=== PATIENT | female | born 1990 | race Caucasian/White ===

== ENCOUNTER 2018-01-05 13:28 | Emergency (ER) | payer OTHER ==
[2018-01-05 15:57] LABS: Urine Blood NEGATIVE (NEG); Urine Glucose NEGATIVE (NEG); Urine Protein TRACE (NEG)
--- NOTE | 2018-01-05 17:33 | ER ---
Nurse's Notes [facility] Name: Zakiya Angeles Age: 27 yrs Sex: Female : 1990 Arrival Date: 01/05/2018 Time: 13:31 Bed 11 Private MD: J Luis Peralta Diagnosis: Abdominal and pelvic pain;Pelvic and perineal pain Presentation: 01/05 13:45 Presenting complaint: Patient states: "I've been having pelvic pain, I thought it was a aj1 UTI for the past 2 weeks. I went to urgent care and they told me to come here." Denies vaginal bleeding or discharge. Reports dysuria. Patient states that she had a miscarriage 3 weeks ago, her follow up with her OB is scheduled for January 17. Denies fever, nausea, vomiting, diarrhea. Transition of care: patient was not received from another setting of care. Onset of symptoms was December 22, 2017. Risk Assessment: Do you want to hurt yourself or someone else? Patient reports no desire to harm self or others. Initial Sepsis Screen: Does the patient meet any 2 criteria? No. Patient's initial sepsis screen is negative. Does the patient have a suspected source of infection? No. Patient's initial sepsis screen is negative. Care prior to arrival: None. 13:45 Method Of Arrival: Ambulatory aj 13:45 Acuity: DENICE 4 aj1 Triage Assessment: 13:48 General: Appears in no apparent distress. comfortable, Behavior is calm, cooperative, aj1 appropriate for age. Pain: Complains of pain in pelvis Pain currently is 2 out of 10 on a pain scale. Neuro: Level of Consciousness is awake, alert, obeys commands. Cardiovascular: Patient's skin is warm and dry. Respiratory: Airway is patent Respiratory effort is even, unlabored, Respiratory pattern is regular, symmetrical. GI: Patient currently denies diarrhea, nausea, vomiting. : Reports burning with urination, Denies discharge, vaginal bleeding. Derm: Skin is pink, warm \\T\\ dry. normal. 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 - Social history:: Smoking status: Patient uses tobacco products, smokes one pack cigarettes per day. - Ebola Screening: : Patient denies travel to an Ebola-affected area in the 21 days before illness onset. Screenin:40 Abuse screen: Denies threats or abuse. Denies injuries from another. Nutritional iw screening: No deficits noted. Tuberculosis screening: No symptoms or risk factors identified. Fall Risk None identified. Assessment: 16:00 General: Appears in no apparent distress. comfortable, Behavior is calm, cooperative. iw Neuro: Level of Consciousness is awake, alert, obeys commands, Oriented to person, place, time, situation, Moves all extremities. Full function. Respiratory: Respiratory effort is even, unlabored. Derm: Skin is pink, warm \\T\\ dry. normal. Musculoskeletal: Range of motion: intact in all extremities. 17:25 Reassessment: pt states she wants to be discharged and will follow up with medical iw records on Tuesday to get results. Vital Signs: 13:48 BP 125 / 91; Pulse 91; Resp 18; Temp 98.2(TE); Pulse Ox 99% on R/A; Weight 70.76 kg; aj1 Height 5 ft. 6 in. (167.64 cm); Pain 2/10; 13:48 Body Mass Index 25.18 (70.76 kg, 167.64 cm) aj1 ED Course: 13:31 Patient arrived in ED. mr 13:31 J Luis Peralta MD is Private Physician. mr 13:48 Triage completed. aj1 13:48 Arm band placed on Patient placed in waiting room, Patient notified of wait time. aj1 13:50 Patient has correct armband on for positive identification. iw 14:14 Gretchen Magaña, RN is Primary Nurse. iw 14:26 Lenny Gottlieb MD is Attending Physician. kdr 16:40 Assist provider with pelvic exam: Set up pelvic tray. Performed by Sondra Tucker iw ADRIEL-C Specimens sent to lab. Patient tolerated well. Patient did not have IV access during this emergency room visit. 17:32 J Luis Peralta MD is Referral Physician. kdr Administered Medications: No medications were administered Outcome: 17:33 Discharge ordered by . kdr 17:41 Discharged to home ambulatory, with family. iw 17:41 Condition: good 17:41 Discharge instructions given to patient, Instructed on discharge instructions, follow up and referral plans. 17:41 Patient left the ED. iw Signatures: Audrey Brownlee RN RN aj1 Lenny Gottlieb MD MD kdr Rivera, Maria mr Gretchen Magaña RN RN iw
--- NOTE | 2018-01-05 17:33 | EDPHYS ---
Physician Documentation [facility] Name: Zakiya Angeles Age: 27 yrs Sex: Female : 1990 Arrival Date: 01/05/2018 Time: 13:31 Bed 11 Private MD: J Luis Peralta ED Physician Lenny Gottlieb HPI: 01/06 09:14 This 27 yrs old Female presents to ER via Ambulatory with complaints of kdr Pelvic Pain. 09:14 The patient presents with urinary symptoms, Vaginal pain but no dyspareunia . Onset: kdr The symptoms/episode began/occurred gradually, 2 week(s) ago. Modifying factors: The symptoms are alleviated by nothing, the symptoms are aggravated by nothing. Associated signs and symptoms: Pertinent positives:. Severity of symptoms: At their worst the symptoms were mild, in the emergency department the symptoms are unchanged. The patient is sexually active. The patient has not experienced similar symptoms in the past. The patient has not recently seen a physician. 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 - Social history:: Smoking status: Patient uses tobacco products, smokes one pack cigarettes per day. - Ebola Screening: : Patient denies travel to an Ebola-affected area in the 21 days before illness onset. ROS: 01/06 09:14 Constitutional: Negative for fever, chills, and weight loss, Eyes: Negative for injury, kdr pain, redness, and discharge, Neck: Negative for injury, pain, and swelling, Cardiovascular: Negative for chest pain, palpitations, and edema, Respiratory: Negative for shortness of breath, cough, wheezing, and pleuritic chest pain, Abdomen/GI: Negative for abdominal pain, nausea, vomiting, diarrhea, and constipation, Back: Negative for injury and pain, MS/Extremity: Negative for injury and deformity, Skin: Negative for injury, rash, and discoloration, Neuro: Negative for headache, weakness, numbness, tingling, and seizure activity. Psych: Negative for depression, anxiety, suicide ideation, homicidal ideation, and hallucinations, Allergy/Immunology: Negative for hives, rash, and allergies, Endocrine: Negative for neck swelling, polydipsia, polyuria, polyphagia, and marked weight changes, Hematologic/Lymphatic: Negative for swollen nodes, abnormal bleeding, and unusual bruising. : Positive for Vaginal pain. Exam: 09:14 Constitutional: This is a well developed, well nourished patient who is awake, alert, kdr and in no acute distress. Head/Face: Normocephalic, atraumatic. Eyes: Pupils equal round and reactive to light, extra-ocular motions intact. Lids and lashes normal. Conjunctiva and sclera are non-icteric and not injected. Cornea within normal limits. Periorbital areas with no swelling, redness, or edema. Neck: Trachea midline, no thyromegaly or masses palpated, and no cervical lymphadenopathy. Supple, full range of motion without nuchal rigidity, or vertebral point tenderness. No Meningismus. Chest/axilla: Normal chest wall appearance and motion. Nontender with no deformity. No lesions are appreciated. Cardiovascular: Regular rate and rhythm with a normal S1 and S2. No gallops, murmurs, or rubs. Normal PMI, no JVD. No pulse deficits. Respiratory: Lungs have equal breath sounds bilaterally, clear to auscultation and percussion. No rales, rhonchi or wheezes noted. No increased work of breathing, no retractions or nasal flaring. Abdomen/GI: Soft, non-tender, with normal bowel sounds. No distension or tympany. No guarding or rebound. No evidence of tenderness throughout. Back: No spinal tenderness. No costovertebral tenderness. Full range of motion. Skin: Warm, dry with normal turgor. Normal color with no rashes, no lesions, and no evidence of cellulitis. MS/ Extremity: Pulses equal, no cyanosis. Neurovascular intact. Full, normal range of motion. Neuro: Awake and alert, GCS 15, oriented to person, place, time, and situation. Cranial nerves II-XII grossly intact. Motor strength 5/5 in all extremities. Sensory grossly intact. Cerebellar exam normal. Normal gait. Psych: Awake, alert, with orientation to person, place and time. Behavior, mood, and affect are within normal limits. Vital Signs: 01/05 13:48 BP 125 / 91; Pulse 91; Resp 18; Temp 98.2(TE); Pulse Ox 99% on R/A; Weight 70.76 kg; aj1 Height 5 ft. 6 in. (167.64 cm); Pain 2/10; 13:48 Body Mass Index 25.18 (70.76 kg, 167.64 cm) aj1 MDM: 17:33 Patient medically screened. kdr 01/06 09:14 Data reviewed: vital signs, nurses notes, lab test result(s). Counseling: I had a kdr detailed discussion with the patient and/or guardian regarding: the historical points, exam findings, and any diagnostic results supporting the discharge/admit diagnosis, lab results, the need for outpatient follow up. 01/05 15:42 Order name: Urine Dipstick--Ancillary (enter results) ag 01/05 15:42 Order name: Urine --Ancillary (enter results) ag 01/05 14:55 Order name: Urine Dipstick-Ancillary (obtain specimen); Complete Time: 15:31 kdr 01/05 14:55 Order name: Urine Test (obtain specimen); Complete Time: 16:27 kdr 01/05 17:11 Order name: Wet Prep iw 01/05 14:55 Order name: Pelvic Exam Setup; Complete Time: 16:51 kdr Administered Medications: No medications were administered Disposition: 01/05/18 17:33 Discharged to Home. Impression: Abdominal and pelvic pain, Pelvic and perineal pain. - Condition is Fair. - Discharge Instructions: Pelvic Pain, Female. - Medication Reconciliation Form, Thank You Letter, Work release form form. - Follow up: J Luis Peralta MD; When: 2 - 3 days; Reason: If symptoms return, Further diagnostic work-up, Recheck today's complaints, Continuance of care, Re-evaluation by your physician. - Problem is an ongoing problem. - Symptoms are unchanged. Signatures: Dispatcher [employer] EDAudrey Myles RN RN aj1 Lenny Gottlieb MD MD kdr Gretchen Magaña RN RN iw Corrections: (The following items were deleted from the chart) 01/05 17:41 17:33 01/05/2018 17:33 Discharged to Home. Impression: Abdominal and pelvic pain; iw Pelvic and perineal pain. Condition is Fair. Forms are Medication Reconciliation Form, Thank You Letter, Antibiotic Education, Prescription Opioid Use. Follow up: J Luis Peralta; When: 2 - 3 days; Reason: If symptoms return, Further diagnostic work-up, Recheck today's complaints, Continuance of care, Re-evaluation by your physician. Problem is an ongoing problem. Symptoms are unchanged. kdr
== END 2018-01-05 17:41 | disposition home or self-care (01) ==
LOC: ER 13:28
DX: R10.2 Pelvic and perineal pain (principal); R10.9 Unspecified abdominal pain; F17.210 Nicotine dependence, cigarettes, uncomplicated
CPT/HCPCS: 81003; 81025; 87210; 99283

== ENCOUNTER 2021-04-29 19:36 | Emergency (ER) | payer OTHER ==
[2021-04-29] MEDS ORDERED: ONDANSETRON 4 MG/2 ML VIAL ONE (19:53)
[2021-04-29 20:53] LABS: Basophils % 0.3 % (0-1.3); Hematocrit 43.3 % (36.0-45.0); Lymphocytes % 9.7 % (15.3-44.8); MPV 8.6 fL (7.6-11.3); RBC Red Blood Cell Count 4.93 M/uL (3.86-4.86)
[2021-04-29 21:25] LABS: Urine Blood Negative (Negative); Urine Glucose Negative (Negative); Urine Protein Trace (Negative); Urine Specific Gravity 1.025 (1.005-1.030)
[2021-04-29 21:27] LABS: ALT/SGPT 27 U/L (12-78); AST/SGOT 19 U/L (15-37); Albumin 4.1 g/dL (3.4-5.0); Alkaline Phosphatase 86 U/L (45-117); BUN Blood Urea Nitrogen 19 mg/dL (7-18); Bicarbonate 23 mmol/L (21-32); Bilirubin Direct 0.1 mg/dL (0-0.2); Bilirubin Total 0.5 mg/dL (0.2-1.0); Glucose Level 102 mg/dL (74-106); Lipase 68 U/L (73-393); Potassium 3.9 mmol/L (3.5-5.1); Protein, Total 7.7 g/dL (6.4-8.2); Sodium Level 143 mmol/L (136-145)
[2021-04-29] MEDS ORDERED: NA CHLORIDE 0.9% 1,000 ML ONE (21:37)
--- NOTE | 2021-04-29 22:13 | ER ---
Nurse's Notes [facility] Name: Zakiya Angeles Age: 30 yrs Sex: Female : 1990 Arrival Date: 04/29/2021 Time: 19:37 Bed 8 Private MD: Diagnosis: Nausea with vomiting, unspecified;Diarrhea, unspecified Presentation: 04/29 19:48 Chief complaint: Patient states: vomiting and diarrhea x 2 hours. Coronavirus screen: df1 Vaccine status: Patient reports being unvaccinated. Client denies travel out of the [place] in the last 14 days. Client presents with at least one sign or symptom that may indicate coronavirus-19. Ebola Screen: Patient negative for fever greater than or equal to 101.5 degrees Fahrenheit, and additional compatible Ebola Virus Disease symptoms Patient denies exposure to infectious person. Patient denies travel to an Ebola-affected area in the 21 days before illness onset. Initial Sepsis Screen: Does the patient meet any 2 criteria? No. Patient's initial sepsis screen is negative. Does the patient have a suspected source of infection? No. Patient's initial sepsis screen is negative. Risk Assessment: Do you want to hurt yourself or someone else? Patient reports no desire to harm self or others. Onset of symptoms was April 29, 2021 at 17:00. 19:48 Method Of Arrival: EMS: [facility] df1 19:48 Acuity: DENICE 3 df1 19:53 Note Pt arrived via squad from home c/o vomiting/diarrhea x 2 hours. Pt kids had same df1 symptoms a few days prior. Pt received 400ml NS and 4 mg zofran in route. Pt states generalized abd pain. 22:22 Note Pt tolerating oral fluids. pt denies pain/N/V. Pt to be discharged after NS bolus. df1 Triage Assessment: 19:56 General: Appears uncomfortable, Behavior is calm, cooperative. Pain: Complains of pain df1 in abdomen Pain currently is 10 out of 10 on a pain scale. Quality of pain is described as burning. 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 - Social history:: Smoking status: Patient denies any tobacco usage or history of. Screenin:56 Abuse screen: Denies threats or abuse. Nutritional screening: No deficits noted. df1 Tuberculosis screening: No symptoms or risk factors identified. Fall Risk None identified. Assessment: 20:00 GI: Reports nausea. df1 21:53 General: Appears in no apparent distress. Behavior is calm, cooperative. Neuro: No df1 deficits noted. Cardiovascular: No deficits noted. Respiratory: No deficits noted. GI: Abdomen is flat, Bowel sounds present X 4 quads. Abd is soft and non tender X 4 quads. Reports nausea. : No deficits noted. EENT: No deficits noted. Derm: No deficits noted. Musculoskeletal: No deficits noted. Vital Signs: 19:48 BP 95 / 67; Pulse 72; Resp 18; Temp 97.9; Pulse Ox 100% on R/A; Weight 88.45 kg; Height df1 5 ft. 6 in. (167.64 cm); Pain 10/10; 20:24 BP 98 / 70; Pulse 73; Resp 18; Pulse Ox 94% on R/A; df1 21:44 BP 99 / 70; Pulse 90; Resp 18; Pulse Ox 99% on R/A; df1 22:46 BP 101 / 69; Pulse 86; Resp 18; Pulse Ox 100% on R/A; df1 19:48 Body Mass Index 31.47 (88.45 kg, 167.64 cm) df1 ED Course: 19:37 Patient arrived in ED. dh4 19:39 Olesya Dhillon FNP-C [facility]. kb 19:39 Star Spann MD is Attending Physician. kb 19:47 Gisele Saleem is Primary Nurse. df1 19:51 Triage completed. df1 19:55 Maintain EMS IV. Gauge \T\ site: 20 G. IV is intact, Flushed right antecubital Converted df1 IV to saline lock on right antecubital area. 19:56 No provider procedures requiring assistance completed. df1 19:56 Patient has correct armband on for positive identification. Placed in gown. Bed in low df1 position. Call light in reach. Side rails up X 1. 20:06 Missed attempt(s): 24 gauge in left hand. Bleeding controlled, band aid applied, ds4 catheter tip intact. 20:45 Basic Metabolic Panel Sent. df1 20:45 CBC with Diff Sent. df1 20:45 Hepatic Function Sent. df1 20:45 Lipase Sent. df1 22:47 IV discontinued, intact, bleeding controlled, No redness/swelling at site. Pressure df1 dressing applied. 22:47 Arm band placed on right wrist. df1 Administered Medications: 20:00 Drug: Zofran (Ondansetron) 4 mg Route: IVP; Site: right antecubital; df1 21:44 Drug: NS 0.9% 1000 ml Route: IV; Rate: 1000 ml; Site: right antecubital; df1 22:25 Drug: Phenergan (promethazine) 25 mg Route: PO; df1 Outcome: 22:13 Discharge ordered by . kb 22:46 Discharged to home ambulatory. df1 22:46 Condition: stable 22:46 Discharge instructions given to patient, Instructed on discharge instructions, follow up and referral plans. medication usage, Demonstrated understanding of instructions, follow-up care, medications, Prescriptions given X 1. 22:47 Patient left the ED. df1 Signatures: Olesya Dhillon, ASSEMBLER UNIT-C ASSEMBLER UNIT-CkJosé Miguel Bae ds4 Scooter Klein dh4 Gisele Saleem df1
--- NOTE | 2021-04-29 22:14 | EDPHYS ---
Physician Documentation [facility] Name: Zakiya Angeles Age: 30 yrs Sex: Female : 1990 Arrival Date: 04/29/2021 Time: 19:37 Bed 8 Private MD: ED Physician Star Spann HPI: 04/29 21:26 This 30 yrs old Female presents to ER via EMS with complaints of n/v/d. kb 21:26 The patient presents to the emergency department with nausea, vomiting, diarrhea. kb Onset: The symptoms/episode began/occurred 2 hour(s) ago. Possible causes: sick contacts. The symptoms are aggravated by nothing. The symptoms are alleviated by nothing. Associated signs and symptoms: Pertinent positives: diarrhea, nausea, vomiting, Pertinent negatives: abdominal pain, fever. Severity of symptoms: At their worst the symptoms were moderate in the emergency department the symptoms are unchanged. The patient has not experienced similar symptoms in the past. The patient has not recently seen a physician. Pt reports her kids have had diarrhea for a few days. 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 - Social history:: Smoking status: Patient denies any tobacco usage or history of. ROS: 21:26 Constitutional: Negative for fever, chills, and weight loss. kb 21:26 Abdomen/GI: Positive for nausea, vomiting, and diarrhea, Negative for abdominal pain. 21:26 All other systems are negative. Exam: 21:26 Constitutional: This is a well developed, well nourished patient who is awake, alert, kb and in no acute distress. Head/Face: Normocephalic, atraumatic. ENT: Moist Mucous membranes Cardiovascular: Regular rate and rhythm with a normal S1 and S2. No gallops, murmurs, or rubs. No pulse deficits. Respiratory: Respirations even and unlabored. No increased work of breathing, no retractions or nasal flaring. Abdomen/GI: Soft, non-tender. No distention Skin: Warm, dry with normal turgor. Normal color. MS/ Extremity: Pulses equal, no cyanosis. Neurovascular intact. Full, normal range of motion. Neuro: Awake and alert, GCS 15, oriented to person, place, time, and situation. Moves all extremities. Normal gait. Psych: Awake, alert, with orientation to person, place and time. Behavior, mood, and affect are within normal limits. Vital Signs: 19:48 BP 95 / 67; Pulse 72; Resp 18; Temp 97.9; Pulse Ox 100% on R/A; Weight 88.45 kg; Height df1 5 ft. 6 in. (167.64 cm); Pain 10/10; 20:24 BP 98 / 70; Pulse 73; Resp 18; Pulse Ox 94% on R/A; df1 21:44 BP 99 / 70; Pulse 90; Resp 18; Pulse Ox 99% on R/A; df1 22:46 BP 101 / 69; Pulse 86; Resp 18; Pulse Ox 100% on R/A; df1 19:48 Body Mass Index 31.47 (88.45 kg, 167.64 cm) df1 MDM: 19:39 Patient medically screened. kb 21:26 Data reviewed: vital signs, nurses notes. Data interpreted: Pulse oximetry: on room air kb is 94 %. Interpretation: acceptable. 22:10 Counseling: I had a detailed discussion with the patient and/or guardian regarding: the kb historical points, exam findings, and any diagnostic results supporting the discharge/admit diagnosis, lab results, the need for outpatient follow up, a family practitioner, to return to the emergency department if symptoms worsen or persist or if there are any questions or concerns that arise at home. 04/29 19:39 Order name: Basic Metabolic Panel; Complete Time: 21:28 kb 04/29 19:39 Order name: CBC with Diff; Complete Time: 21:02 kb 04/29 19:39 Order name: Hepatic Function; Complete Time: 21:28 kb 04/29 19:39 Order name: Lipase; Complete Time: 21:28 kb 04/29 21:24 Order name: Urine Dipstick-Ancillary; Complete Time: 21:28 EDMS 04/29 19:39 Order name: IV Saline Lock; Complete Time: 19:45 kb 04/29 19:39 Order name: Labs collected and sent; Complete Time: 20:45 kb 04/29 21:20 Order name: Urine Dipstick-Ancillary (obtain specimen); Complete Time: 21:23 df1 04/29 21:28 Order name: PO challenge; Complete Time: 21:44 kb Administered Medications: 20:00 Drug: Zofran (Ondansetron) 4 mg Route: IVP; Site: right antecubital; df1 21:44 Drug: NS 0.9% 1000 ml Route: IV; Rate: 1000 ml; Site: right antecubital; df1 22:25 Drug: Phenergan (promethazine) 25 mg Route: PO; df1 Disposition: 04/30 00:27 Co-signature as Attending Physician, Star Spann MD. pkl Disposition Summary: 04/29/21 22:13 Discharge Ordered Location: Home kb Condition: Stable kb Diagnosis - Nausea with vomiting, unspecified kb - Diarrhea, unspecified kb Followup: kb - With: Emergency Department - When: As needed - Reason: Worsening of condition Followup: kb - With: Private Physician - When: 2 - 3 days - Reason: Recheck today's complaints, Continuance of care, Re-evaluation by your physician Discharge Instructions: - Discharge Summary Sheet kb - Food Choices to Help Relieve Diarrhea, Adult kb - Viral Gastroenteritis, Adult, [id number] kb Forms: - Medication Reconciliation Form kb - Thank You Letter kb - Antibiotic Education kb - Prescription Opioid Use kb Prescriptions: - Zofran 4 mg Oral Tablet - take 1 tablet by ORAL route every 6 hours As needed; 20 tablet; Refills: 0, kb Product Selection Permitted Signatures: Dispatcher [employer] EDSD Olesya Dhillon, Star Greer MD MD pkl Gisele Saleem df1
[2021-04-29] MEDS ORDERED: PROMETHAZINE 25 MG TABLET ONE (22:24)
[2021-04-29 22:53] VITALS: TEMP 97.9
[2021-04-29 22:57] VITALS: BP 101/69; O2SAT 100
--- OUTSIDE RECORDS SUMMARY | 2021-05-09 10:22 | XMS REPORT | Continuity of Care Document ---
:1990 Author Organization [facility] t Address [address] [place] [address] Care Team Providers Name Role Phone DadaRell Primary Care Physician Yoli SNOWDEN Attending Clinician Unavailable Yoli SNOWDEN Attending Clinician Unavailable ОЛЕГ Attending Clinician Unavailable Trent MOREL Attending Clinician Олег MESA Attending Clinician Clay BRANCH, T Attending Clinician Unavailable TRENT Attending Clinician Unavailable Yoli Snowden MD Attending Clinician MYRIAM MOON Attending Clinician Unavailable Myriam Moon MD Attending Clinician Doctor Unassigned, Name Attending Clinician Unavailable Janki KC Attending Clinician JANKI Attending Clinician Unavailable Isra MESA L Attending Clinician John GLASGOW Attending Clinician Ashley Oviedo MD Attending Clinician 2, Lab Attending Clinician Unavailable Ultrasound Attending Clinician Unavailable Remi Jeffers MD Attending Clinician Avtar Castano DO Attending Clinician Ultrasound, Mfm Attending Clinician Unavailable Rob RN Attending Clinician Unavailable UNKNOWN Attending Clinician Unavailable Bakari BRANCH Attending Clinician Unavailable Robert MESA, F Attending Clinician Ricardo CARMONA Attending Clinician Unavailable Ruby VIRK Attending Clinician Unavailable Hyun WHCNP, C Attending Clinician Kristine SENIOR ACCOUNTING ASSOCIATE, R Attending Clinician Nurse, Women's Health Attending Clinician Unavailable 1, Lab Attending Clinician Unavailable MYRIAM MOON Admitting Clinician Unavailable Myriam Moon MD Admitting Clinician Payers Payer Name Policy Type Policy Number Effective Date Expiration Date S [place] [facility] [id number] 2020 HEALTH 00:00:00 [place]ID OF [place] [id number] 2020 00:00:00 HTW-RMCHP [id number] 2019 00:00:00 Problems Condition Condition Condition Status Onset Resolution Last Treating Co mments Source Name Details Category Date Date Treatment Clinician Date Abscess of Abscess of Disease Active 2020-0 U nivers breast, breast, 6-21 [place] 00 [facility] History of History of Disease Active 2020-0 U nivers anxiety anxiety 6-02 ity of 00:00: [place] [facility] Depression Depression Disease Active 2020-0 U nivers during during 4-08 [place] in third in third 00 Medica l trimester trimester Bran ch High-risk High-risk Disease Active 2019- Uni vers 0-15 ity of in first in first 00:00: [place] trimester trimester 00 [facility] Branch History of History of Disease Active 2019- U nivers pre-eclamp pre-eclamp 0-15 it y of felipe felipe 00:00: [place] [facility] Other Other Disease Active 2020-0 Univers depression depression 6-23 it y of 00:00: [place] [facility] Other Other Disease Active 2020-0 Univers general general 6-23 it[place] of counseling counseling [place] and advice and advice 00 [place] dical for [facility] Branch contracept contracept alfredo alfredo management management History of History of Disease Active 2020-0 U nivers depression depression 6-23 it y of 00:00: [place] [facility] Disease Active 2020-0 Univers control control 1-07 it[place] of counseling counseling [place]: [place] Liveborn Liveborn Disease Active 2018-06 Unive rs , of infant, of 2-03 it y of zuniga zuniga 00:[place] , , 00 Me dical born in [facility] by vaginal by vaginal delivery delivery 39 weeks 39 weeks Disease Active 2018-06 Unive rs gestation gestation 2-02 ity of of of 00:00: [place] 00 [facility] Branch Obesity Obesity Disease Active Univers (BMI (BMI 8-27 ity of 30-39.9) 30-39.9) 00:00: [place] 00 [facility] Rubella Rubella Disease Active Univers non-immune non-immune 4-09 it y of status, status, 00:00: [place] antepartum antepartum 00 Me dical Branch History of History of Disease Active U nivers miscarriag miscarriag 4-08 it y of e, e, 00:00: [place] currently currently 00 [facility] Branch High risk High risk Disease Active Uni vers , , 4-08 it y of antepartum antepartum 00:00: [place] 00 [place] BMI BMI Disease Active Univers 26.0-26.9, 26.0-26.9, 4-08 it y of adult adult 00:00: [place] [facility] Papanicola Papanicola Disease Active U nivers ou smear ou smear 6-08 ity of of cervix of cervix 00:00: [place] with high with 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 [facility] 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) Allergies, Adverse Reactions, Alerts Allergy Allergy Status Severity Reaction(s) Onset Inactive Treating Comm ents Source Name Type Date Date Clinician NO KNOWN Drug Active Univers ALLERGIE Class ity of S [facility] Social History Social Habit Start Date Stop Date Quantity Comments Source ASSERTION 2020-03-09 University of 00:00:00 [facility] Exposure to Not sure University of SARS-CoV-2 [facility] (event) Branch Tobacco use and 2021-03-02 2021-03-02 Never used Universit y of exposure 00:00:00 00:00:00 [facility] Alcohol intake 2021-03-02 2021-03-02 Ex-drinker University of 00:00:00 00:00:00 (finding) [facility] Tobacco Comment 2018-11-06 2018-11-06 Patient quit Univers ity of 00:00:00 00:00:00 10/29/18 [facility] History of 2012-10-02 2018-10-29 Smoker University of tobacco use 00:00:00 00:00:00 [facility] Sex [birth year] At [birth year] Universit y of 00:00:00 00:00:00 [facility] Smoking Status Start Date Stop Date Source Former smoker 2021-03-02 00:00:00 2021-03-02 00:00:00 [facility] Medications Ordered Filled Start Stop Current Ordering Indication Dosage Frequency Signature Comments Components Source Medication Medication Date Date Medication? Clinician (SIG) Name Name bromphenira Yes [id number] 5mL Take 5 mL Univers mine-pseudo 9-20 by mouth 4 it y of ephedrine-D 00:00: (four[place] M (BROMFED 00 times Medical DM) 2-30-10 daily as Bran ch mg/5 mL needed for syrup Congestion /Allergies or Cough. azelastine Yes [id number] 1{spray Use 1 Univers 137 mcg 03-02 } [place] in ity of (0.1 %) 00:00: each [place] nasal spray 00 nostril 2 Med ical (two) Branch times daily. Use in each nostril as directed bromphenira Yes [id number] 5mL Take 5 mL Univers mine-pseudo 9-06 by mouth 4 it y of ephedrine-D 00:00: (four) [place] M (BROMFED 00 times Medical DM) 2-30-10 daily as Bran ch mg/5 mL needed for syrup Congestion /Allergies . codeine-gua Yes 5mL Take 5 mL U nivers ifenesin 9-06 by mouth ity of 10-100 mg/5 00:00: every 6 [place] mL solution 00 (six) Medical hours as Branch needed for Cough. Indication s: cough codeine-gua 0 Yes 5mL Take 5 mL U nivers ifenesin 9-06 by mouth ity of 10-100 mg/5 00:00: every 6 [place] mL solution 00 (six) Medical hours as Branch needed for Cough. Indication s: cough bromphenira 202-0 Yes [id number] 5mL Take 5 mL Univers mine-pseudo 9-06 by mouth 4 it y of ephedrine-D 00:00: (four) [place] M (BROMFED 00 times Medical DM) 2-30-10 daily as Bran ch mg/5 mL needed for syrup Congestion /Allergies . azelastine 202-0 Yes [id number] 1{spray Use 1 Univers 137 mcg 9-06 } [place] in ity of (0.1 %) 00:00: each [place] nasal spray 00 nostril 2 Med ical (two) Branch times daily. Use in each nostril as directed azelastine 2020-0 Yes [id number] 1{spray Use 1 Univers 137 mcg 9-06 } [place] in ity of (0.1 %) 00:00: each [place] nasal spray 00 nostril 2 Med ical (two) Branch times daily. Use in each nostril as directed bromphenira 202-0 Yes [id number] 5mL Take 5 mL Univers mine-pseudo 9-06 by mouth 4 it y of ephedrine-D 00:00: (four) [place] M (BROMFED 00 times Medical DM) 2-30-10 daily as Bran ch mg/5 mL needed for syrup Congestion /Allergies . codeine-gua 2020-0 Yes 5mL Take 5 mL U nivers ifenesin 9-06 by mouth ity of 10-100 mg/5 00:00: every 6 [place] mL solution 00 (six) Medical hours as Branch needed for Cough. Indication s: cough azelastine 202-0 Yes [id number] 1{spray Use 1 Univers 137 mcg 9-06 } [place] in ity of (0.1 %) 00:00: each [place] nasal spray 00 nostril 2 Med ical (two) Branch times daily. Use in each nostril as directed bromphenira 202-0 Yes [id number] 5mL Take 5 mL Univers mine-pseudo 9-06 by mouth 4 it y of ephedrine-D 00:00: (four) [place] M (BROMFED 00 times Medical DM) 2-30-10 daily as Bran ch mg/5 mL needed for syrup Congestion /Allergies . codeine-gua 0 Yes 5mL Take 5 mL U nivers ifenesin 03-02 by mouth ity of 10-100 mg/5 00:00: every 6 [place] mL solution 00 (six) Medical hours as Branch needed for Cough. Indication s: cough azelastine 0 Yes [id number] 1{spray Use 1 Univers 137 mcg 03-02 } [place] in ity of (0.1 %) 00:00: each [place] nasal spray 00 nostril 2 Med ical (two) Branch times daily. Use in each nostril as directed codeine-gua Yes 5mL Take 5 mL U nivers ifenesin 03-02 by mouth ity of 10-100 mg/5 00:00: every 6 [place] mL solution 00 (six) Medical hours as Branch needed for Cough. Indication s: cough bromphenira 2020- No [id number] 5mL Take 5 mL Univers mine-pseudo 03-02 by mouth 4 i ty of ephedrine-D 00:00: 00:00 (four) [place] M (BROMFED 00 :00 times Medical DM) 2-30-10 daily as Bran ch mg/5 mL needed for syrup Congestion /Allergies . codeine-gua 2020- No 5mL Take 5 mL Univers ifenesin 03-02 by mouth ity of 10-100 mg/5 00:00: 00:00 every 6 [place] mL solution 00 :00 (six) Medical hours as Branch needed for Cough. Indication s: cough bromphenira 2020- No [id number] 5mL Take 5 mL Univers mine-pseudo 03-02- by mouth 4 i ty of ephedrine-D 00:00: 00:00 (four) [place] M (BROMFED 00 :00 times Medical DM) 2-30-10 daily as Bran ch mg/5 mL needed for syrup Congestion /Allergies . azelastine 2020- No [id number] 1{spray Use 1 Univers 137 mcg 03-02- } [place] in ity of (0.1 %) 00:00: 00:00 each [place] nasal spray 00 :00 nostril 2 Med ical (two) Branch times daily. Use in each nostril as directed levonorgest 2020- No [id number] 1{[facility] Univers reL 01-14 e} ity of (KYLEENA) 16:30: 15:17 [place] IUD 1 00 :00 Patient [place] [facility] levonorgest 2020- No [id number] 1{devi 1 Device, Univers reL 01-14 e} Intrauteri ity of (KYLEENA) 16:30: 15:17 ne, ONCE, [place] IUD 1 00 :00 1 dose, Patient [facility] 01/14/21 at 1130, Routine levonorgest 2020- No [id number] 1{[facility] Univers reL 01-14 e} ity of (KYLEENA) 16:30: 15:17 [place] IUD 1 00 :00 Patient [place] Branch levonorgest 2020- No [id number] 1{devi 1 Device, Univers reL 01-14 e} Intrauteri ity of (KYLEENA) 16:30: 15:17 ne, ONCE, [place] I[place] 1 00 :00 1 dose, Patient [facility] 01/14/21 at 1130, Routine SERTraline Yes [id number] 50mg Take 1 U nivers (ZOLOFT) 50 7-13 tablet by ity of mg tablet 00:00: mouth 00 daily. Medical Branch SERTraline Yes [id number] 50mg Take 1 U nivers (ZOLOFT) 50 7-13 tablet by ity of mg tablet 00:00: mouth 00 daily. Medical Branch SERTraline Yes [id number] 50mg Take 1 U nivers (ZOLOFT) 50 7-13 tablet by ity of mg tablet 00:00: mouth [place] 00 daily. Medical Branch SERTraline Yes [id number] 50mg Take 1 U nivers (ZOLOFT) 50 7-13 tablet by ity of mg tablet 00:00: mouth 00 daily. Medical Branch SERTraline Yes [id number] 50mg Take 1 U nivers (ZOLOFT) 50 7-13 tablet by ity of mg tablet 00:00: mouth [place] 00 daily. Medical Branch SERTraline Yes [id number] 50mg Take 1 U nivers (ZOLOFT) 50 7-13 tablet by ity of mg tablet 00:00: mouth [place] 00 daily. Medical Branch SERTraline Yes [id number] 50mg Take 1 U nivers (ZOLOFT) 50 7-13 tablet by ity of mg tablet 00:00: mouth [place] 00 daily. Medical Branch SERTraline Yes [id number] 50mg Take 1 U nivers (ZOLOFT) 50 7-13 tablet by ity of mg tablet 00:00: mouth [place] 00 daily. Medical Branch SERTraline Yes [id number] 50mg Take 1 U nivers (ZOLOFT) 50 7-13 tablet by ity of mg tablet 00:00: mouth [place] 00 daily. Medical Branch SERTraline Yes [id number] 50mg Take 1 U nivers (ZOLOFT) 50 7-13 tablet by ity of mg tablet 00:00: mouth [place] 00 daily. Medical Branch SERTraline Yes [id number] 50mg Take 1 U nivers (ZOLOFT) 50 7-13 tablet by ity of mg tablet 00:00: mouth [place] 00 daily. Medical Branch SERTraline Yes [id number] 50mg Take 1 U nivers (ZOLOFT) 50 7-13 tablet by ity of mg tablet 00:00: mouth [place] 00 daily. Medical Branch SERTraline Yes [id number] 50mg Take 1 U nivers (ZOLOFT) 50 7-13 tablet by ity of mg tablet 00:00: mouth [place] 00 daily. Medical Branch SERTraline Yes [id number] 50mg Take 1 U nivers (ZOLOFT) 50 7-13 tablet by ity of mg tablet 00:00: mouth [place] 00 daily. [facility] Branch SERTraline Yes [id number] 50mg Take 1 U nivers (ZOLOFT) 50 7-13 tablet by ity of mg tablet 00:00: mouth [place] 00 daily. [facility] Branch SERTraline Yes [id number] 50mg Take 1 U nivers (ZOLOFT) 50 7-13 tablet by ity of mg tablet 00:00: mouth [place] 00 daily. Medical Branch SERTraline Yes [id number] 50mg Take 1 U nivers (ZOLOFT) 50 7-13 tablet by ity of mg tablet 00:00: mouth [place] 00 daily. Medical Branch cephALEXin 2020- No [id number] 500mg Take 1 Univers 500 mg 01-06- capsule by ity of capsule 00:00: 04:59 mouth 3 [place] 00 :00 (three) Medical times Branch daily for 7 days. cephALEXin 2020- No [id number] 500mg Take 1 Univers 500 mg 01-06 capsule by ity of capsule 00:00: 04:59 mouth 3 [place] 00 :00 (three) Medical times [place] daily for 7 days. miSOPROStoL Yes [id number] 200ug Take 1 Univers 200 mcg 7-06 tablet by ity of tablet 00:00: mouth [place] 00 SEE-INSTRU Medical CTIONS. Branch Take one tab the night before and one tab the morning of procedure miSOPROStoL Yes [id number] 200ug Take 1 Univers 200 mcg 7-06 tablet by ity of tablet 00:00: mouth [place] 00 SEE-INSTRU Medical CTIONS. Branch Take one tab the night before and one tab the morning of procedure miSOPROStoL Yes [id number] 200ug Take 1 Univers 200 mcg 7-06 tablet by ity of tablet 00:00: mouth [place] 00 SEE-INSTRU Medical CTIONS. Branch Take one tab the night before and one tab the morning of procedure miSOPROStoL 2020- No [id number] 200ug Take 1 Univers 200 mcg 7-12 01-21 tablet by ity of tablet 00:00: 00:00 mouth [place] 00 :00 SEE-INSTRU Medical CTIONS. Branch Take one tab the night before and one tab the morning of procedure miSOPROStoL 2020- No [id number] 200ug Take 1 Univers 200 mcg 7-06 -21 tablet by ity of tablet 00:00: 00:00 mouth [place] 00 :00 SEE-INSTRU Medical CTIONS. Branch Take one tab the night before and one tab the morning of procedure dicloxacill 2020- No 500mg Take 1 Un dayana in 500 mg 18 - capsule by ity of capsule 00:00: 04:59 mouth 4 [place] 00 :00 (four) Medical times [place] daily for 7 days. dicloxacill 2020- No 500mg Take 1 Un dayana in 500 mg 6-18 - capsule by ity of capsule 00:00: 04:59 mouth 4 [place] 00 :00 (four) Medical times [place] daily for 7 days. dicloxacill 2020- No 500mg Take 1 Un dayana in 500 mg 18 - capsule by ity of capsule 00:00: 04:59 mouth 4 [place] 00 :00 (four) Medical times [place] daily for 7 days. SERTraline Yes [id number] 50mg Take 1 U nivers (ZOLOFT) 50 6-09 tablet by ity of mg tablet 00:00: mouth [place] 00 daily. Medical Branch SERTraline Yes [id number] 50mg Take 1 U nivers (ZOLOFT) 50 6-09 tablet by ity of mg tablet 00:00: mouth [place] 00 daily. Medical Branch SERTraline Yes [id number] 50mg Take 1 U nivers (ZOLOFT) 50 6-09 tablet by ity of mg tablet 00:00: mouth [place] 00 daily. Medical Branch SERTraline Yes [id number] 50mg Take 1 U nivers (ZOLOFT) 50 6-09 tablet by ity of mg tablet 00:00: mouth [place] 00 daily. Medical Branch SERTraline Yes [id number] 50mg Take 1 U nivers (ZOLOFT) 50 6-09 tablet by ity of mg tablet 00:00: mouth [place] 00 daily. Medical Branch SERTraline Yes [id number] 50mg Take 1 U nivers (ZOLOFT) 50 6-09 tablet by ity of mg tablet 00:00: mouth [place] 00 daily. Medical Branch SERTraline 2020- No [id number] 50mg Take 1 Univers (ZOLOFT) 50 6-09 07-13 tablet by it y of mg tablet 00:00: 00:00 mouth [place] 00 :00 daily. Medical Branch SERTraline 2020- No [id number] 50mg Take 1 Univers (ZOLOFT) 50 12-03 07-13 tablet by it y of mg tablet 00:00: 00:00 mouth [place] 00 :00 daily. Medical Branch SERTraline Yes 50mg 50 mg, Unive rs (ZOLOFT) 6-04 Oral, ity of tablet 50 14:00: DAILY, [place] mg 00 First dose Medical on Tue [place] 11/28/20 at 0900, Until Discontinu ed, Routine rho(D) Yes 300ug 300 mcg, Univer s immune 6-03 Intramuscu ity of globulin 22:55: lar, ONCE, [place] as (RHOGAM) 56 For 1 Medical syringe 300 dose, [place] mcg Conditiona l, Routine witch [place] Yes Topical, Un [place] (TUCKS) 50 6-03 Q4HPRN, ity of % topical 22:55: Starting [place] pad 47 [place] 11/27/20 [facility] at 1755, Branch Until Discontinu ed, Routine, rectal/hem orrhoidal pain HYDROcodone Yes 1{tbl} 1 tablet, Univers -acetaminop 6 Oral, ity of hen (NORCO 22:55: Q6HPRN, [place] 5) 5-325 mg 47 Starting Medi oli tablet 1 [place] 11/27/20 Branc h tablet at 1755, Until Discontinu ed, Routine, Pain (scale 7-10) ibuprofen Yes 600mg 600 mg, Univ ers (IBU) 6 Oral, ity of tablet 600 22:55: Q6HPRN, [place] mg 47 Starting Medical [place] 11/27/20 Branch at 1755, Until Discontinu ed, Routine, Pain (scale 4-6) acetaminoph Yes 650mg 650 mg, Un [place] en 6-03 Oral, ity of (TYLENOL) 22:55: Q6HPRN, [place] tablet 650 47 Starting Medic al mg [place] 11/27/20 Branch at 1755, Until Discontinu ed, Routine, Pain (scale 1-3) diphenhydrA Yes 25mg 25 mg, Univ ers MINE 6-03 Oral, ity of (BENADRYL) 22:55: Q6HPRN, [place] tablet 25 47 Starting Medica l mg [place] 11/27/20 Branch at 1755, Until Discontinu ed, Routine, Sleep, Itching ondansetron Yes 4mg 4 mg, Slow Univers (ZOFRAN 6-03 IV Push, ity of (PF)) 22:55: Q8HPRN, [place] injection 4 47 Starting Medi oli mg [place] 11/27/20 Branch at 1755, Until Discontinu ed, Routine, Nausea and Vomiting (N/V) simethicone Yes 160mg 160 mg, [place] (GAS RELIEF 6-03 Oral, ity of (SIMETHICON 22:55: PC+HSPRN, [place] E)) 47 Starting Medical chewable [place] 11/27/20 Branc h tablet 160 at 1755, mg Until Discontinu ed, Routine, Gas magnesium Yes 30mL 30 mL, Univer s hydroxide 11-27 Oral, ity of (MILK OF 22:55: QDAILYPRN, [place] MAGNESIA) 47 Starting Medica l 400 mg/5 mL [place] 11/27/20 Br anch suspension at 1755, 30 mL Until Discontinu ed, Routine, Constipati on benzocaine- Yes Topical, [place] menthol 6-03 PRN, ity of (DERMOPLAST 22:55: Starting [place] ) 20-0.5 % 47 [place] 11/27/20 Med ical topical at 1755, Branch spray Until Discontinu ed, Routine, Perineum discomfort lidocaine 2020- No Slow IV Univ ers 1% 11-27 Push, ONCE ity of (XYLOCAINE) 17:31: 01:22 INTRA [place] 100 mg/10 00 :30 PROCEDURE, Medi oli mL (1 %) Starting Branch injection [place] 11/27/20 at 1231, Until [place] 11/27/20 at 2022, Routine, Intra-op lidocaine 2020- No Slow IV Univ ers 1% 11-2704 Push, ONCE ity of (XYLOCAINE) 17:31: 01:22 INTRA [place] 100 mg/10 00 :30 PROCEDURE, Medi oli mL (1 %) Starting Branch injection [place] 11/27/20 at 1231, Until [place] 21 at 2021, Routine, Intra-op FENTanyl 2 2020-2020- No Intra-op [place] mcg/mL + 11-27 06-04 ity of bupivacaine 17:17: 01:22 [place] 0.125% in 00 :30 Medical NS 250 mL Branch epidural bag FENTanyl 2 2020-2020- No Intra-op [place] mcg/mL + 11-27 06-04 ity of bupivacaine 17:17: 01:22 [place] 0.125% in 00 :30 Medical NS 250 mL Branch epidural bag lidocaine-e 2020- No Epidural, Univers pinephrine 11-27-04 ONCE INTRA it y of (XYLOCAINE 17:16: 01:22 PROCEDURE, [place] W/EPINEPHRI 00 :30 Starting [facility] [place]) 1.5 [place] 11/27/20 Branch %-1:200,000 at 1216, injection Until [place] 11/27/20 at 2021, Routine, Intra-op lidocaine-e 2020- No Epidural, Univers pinephrine 11-2704 ONCE INTRA it y of (XYLOCAINE 17:16: 01:22 PROCEDURE, [place] W/EPINEPHRI 00 :30 Starting [facility] [place]) 1.5 [place] 11/27/20 Branch %-1:200,000 at 1216, injection Until [place] 11/27/20 at 2021, Routine, Intra-op D5W-LR IV 2020- No 1000mL at 125 Uni vers infusion 11-2703 mL/hr, IV ity o f 1,000 mL 09:30: 22:55 Infusion, [place] as 00 :57 CONTINUOUS Medical , Starting Branch [place] 11/27/20 at 0430, Until [place] 11/27/20 at 1755, Routine FENTanyl PF 2020- No 100ug 100 mcg, Univers (SUBLIMAZE 11-27 Slow IV ity o f (PF)) 09:18: 22:55 Push, [place] injection 59 :57 Q1HPRN, Medical 100 mcg Starting Branch [place] 11/27/20 at 0418, Until [place] 11/27/20 at 1755, Routine, contractio n pain without an epidural and SVE < 8 cm and Cat I strip LR 1000 mL 2020- No 2mU/min 2-40 Uni vers + oxytocin 11-27 cinthya-unit it y of 20 units IV 09:18: 22:55 s/min [place] Solution 59 :57 (6-120 Medical mL/hr), IV Branch Infusion, TITRATE, Oxytocin Induction / Augmentati on of Labor, Starting [place] 11/27/20 at 0418
In fuse IV through a controlled infusion pump at a proximal port on the peripheral IV line.&nbsp ; Sta rt at 2 cinthya-unit s/min and increase by 2 cinthya-unit s/min every 20 minutes according to oxytocin policy 7.11.52.&n bsp; Going over 20 cinthya-unit s/min requires faculty approval.& nbsp;&nbsp ;Max 40 cinthya-unit s/min.
sodium 2020- No 30mL 30 mL, Univers citrate-cit 11-27 Oral, ity of baltazar acid 09:18: 16:57 PRE-PROCED [place] (BICITRA) 59 :00 URE ONCE, Medic al 500-334 1 dose, Branch mg/5 mL Starting solution 30 [place] 11/27/20 mL at 0418, Until [place] 11/27/20 at 1157, Routine, Surgery/Pr ocedure Yes [id number] 1{tbl} Take 1 U nivers vitamin 6-03 tablet by ity of w/FA tablet 00:00: mouth [place] 00 daily. Medical Branch docusate Yes [id number] 240mg Take 1 Un [place] calcium 240 6-03 capsule by it y of mg capsule 00:00: mouth once [place] 00 daily as Medical needed for Branch Constipati on. ferrous Yes [id number] 325mg Take 1 Uni vers sulfate 325 6-03 tablet by ity of mg (65 mg 00:00: mouth 2 [place] iron) 00 (two) Medical tablet times Branch daily. ibuprofen Yes [id number] 600mg Take 1 U nivers 600 mg 6-03 tablet by ity of tablet 00:00: mouth [place] 00 every 6 Medical (six) Branch hours as needed (Pain). Take with food or milk. 2021-0 Yes [id number] 1{tbl} Take 1 U nivers vitamin 6-03 tablet by ity of w/FA tablet 00:00: mouth [place] 00 daily. Medical Branch docusate 0 Yes [id number] 240mg Take 1 Un [place] calcium 240 6-03 capsule by it y of mg capsule 00:00: mouth once [place] 00 daily as Medical needed for Branch Constipati on. ferrous 2020-0 Yes [id number] 325mg Take 1 Uni vers sulfate 325 6-03 tablet by ity of mg (65 mg 00:00: mouth 2 [place] iron) 00 (two) Medical tablet times Branch daily. ibuprofen 0 Yes [id number] 600mg Take 1 U nivers 600 mg 6-03 tablet by ity of tablet 00:00: mouth [place] 00 every 6 Medical (six) Branch hours as needed (Pain). Take with food or milk. 0 Yes [id number] 1{tbl} Take 1 U nivers vitamin 6-03 tablet by ity of w/FA tablet 00:00: mouth [place] 00 daily. Medical Branch docusate Yes [id number] 240mg Take 1 Un day[place] calcium 240 6-03 capsule by it y of mg capsule 00:00: mouth once [place] 00 daily as Medical needed for Branch Constipati on. ferrous 2020-0 Yes [id number] 325mg Take 1 Uni vers sulfate 325 6-03 tablet by ity of mg (65 mg 00:00: mouth 2 [place] iron) 00 (two) Medical tablet times Branch daily. ibuprofen 2020-0 Yes [id number] 600mg Take 1 U nivers 600 mg 6-03 tablet by ity of tablet 00:00: mouth [place] 00 every 6 Medical (six) Branch hours as needed (Pain). Take with food or milk. 2020-0 Yes [id number] 1{tbl} Take 1 U nivers vitamin 6-03 tablet by ity of w/FA tablet 00:00: mouth [place] 00 daily. Medical Branch docusate 0 Yes [id number] 240mg Take 1 Un [place] calcium 240 6-03 capsule by it y of mg capsule 00:00: mouth once [place] 00 daily as Medical needed for Branch Constipati on. ferrous 2020-0 Yes [id number] 325mg Take 1 Uni vers sulfate 325 6-03 tablet by ity of mg (65 mg 00:00: mouth 2 [place] iron) 00 (two) Medical tablet times Branch daily. ibuprofen 2020-0 Yes [id number] 600mg Take 1 U nivers 600 mg 6-03 tablet by ity of tablet 00:00: mouth [place] 00 every 6 Medical (six) Branch hours as needed (Pain). Take with food or milk. 2020-0 Yes [id number] 1{tbl} Take 1 U nivers vitamin 6-03 tablet by ity of w/FA tablet 00:00: mouth [place] 00 daily. Medical Branch docusate Yes [id number] 240mg Take 1 Un [place] calcium 240 6-03 capsule by it y of mg capsule 00:00: mouth once [place] 00 daily as Medical needed for Branch Constipati on. ferrous Yes [id number] 325mg Take 1 Uni vers sulfate 325 6-03 tablet by ity of mg (65 mg 00:00: mouth 2 [place] iron) 00 (two) Medical tablet times Branch daily. ibuprofen 0 Yes [id number] 600mg Take 1 U nivers 600 mg 6-03 tablet by ity of tablet 00:00: mouth [place] 00 every 6 Medical (six) Branch hours as needed (Pain). Take with food or milk. 2020-0 Yes [id number] 1{tbl} Take 1 U nivers vitamin 6-03 tablet by ity of w/FA tablet 00:00: mouth [place] 00 daily. Medical Branch docusate 0 Yes [id number] 240mg Take 1 Un dayana calcium 240 6-03 capsule by it y of mg capsule 00:00: mouth once [place] 00 daily as Medical needed for Branch Constipati on. ferrous Yes [id number] 325mg Take 1 Uni vers sulfate 325 6-03 tablet by ity of mg (65 mg 00:00: mouth 2 [place] iron) 00 (two) Medical tablet times Branch daily. ibuprofen 2020-0 Yes [id number] 600mg Take 1 U nivers 600 mg 6-03 tablet by ity of tablet 00:00: mouth [place] 00 every 6 Medical (six) Branch hours as needed (Pain). Take with food or milk. 2020-0 Yes [id number] 1{tbl} Take 1 U nivers vitamin 6-03 tablet by ity of w/FA tablet 00:00: mouth [place] 00 daily. Medical Branch docusate 0 Yes [id number] 240mg Take 1 Un dayana calcium 240 6-03 capsule by it y of mg capsule 00:00: mouth once [place] 00 daily as Medical needed for Branch Constipati on. ferrous 2020-0 Yes [id number] 325mg Take 1 Uni vers sulfate 325 6-03 tablet by ity of mg (65 mg 00:00: mouth 2 [place] iron) 00 (two) Medical tablet times Branch daily. ibuprofen 0 Yes [id number] 600mg Take 1 U nivers 600 mg 6-03 tablet by ity of tablet 00:00: mouth [place] 00 every 6 Medical (six) Branch hours as needed (Pain). Take with food or milk. 0 Yes [id number] 1{tbl} Take 1 U nivers vitamin 6-03 tablet by ity of w/FA tablet 00:00: mouth [place] 00 daily. Medical Branch ibuprofen Yes [id number] 600mg Take 1 U nivers 600 mg 6-03 tablet by ity of tablet 00:00: mouth [place] 00 every 6 Medical (six) Branch hours as needed (Pain). Take with food or milk. 2020-0 Yes [id number] 1{tbl} Take 1 U nivers vitamin 6-03 tablet by ity of w/FA tablet 00:00: mouth [place] 00 daily. Medical Branch ibuprofen 0 Yes [id number] 600mg Take 1 U nivers 600 mg 6-03 tablet by ity of tablet 00:00: mouth [place] 00 every 6 Medical (six) Branch hours as needed (Pain). Take with food or milk. 2020-0 Yes [id number] 1{tbl} Take 1 U nivers vitamin 6-03 tablet by ity of w/FA tablet 00:00: mouth [place] 00 daily. Medical Branch ibuprofen 2020-0 Yes [id number] 600mg Take 1 U nivers 600 mg 6-03 tablet by ity of tablet 00:00: mouth [place] 00 every 6 Medical (six) Branch hours as needed (Pain). Take with food or milk. ibuprofen 2020-0 Yes [id number] 600mg Take 1 U nivers 600 mg 6-03 tablet by ity of tablet 00:00: mouth [place] 00 every 6 Medical (six) Branch hours as needed (Pain). Take with food or milk. ibuprofen 2021-0 Yes [id number] 600mg Take 1 U nivers 600 mg 6-03 tablet by ity of tablet 00:00: mouth [place] 00 every 6 Medical (six) Branch hours as needed (Pain). Take with food or milk. ibuprofen 2020-0 Yes [id number] 600mg Take 1 U nivers 600 mg 6-03 tablet by ity of tablet 00:00: mouth [place] 00 every 6 Medical (six) Branch hours as needed (Pain). Take with food or milk. ibuprofen 2020-0 Yes [id number] 600mg Take 1 U nivers 600 mg 6-03 tablet by ity of tablet 00:00: mouth [place] 00 every 6 Medical (six) Branch hours as needed (Pain). Take with food or milk. ibuprofen 2020-0 Yes [id number] 600mg Take 1 U nivers 600 mg 6-03 tablet by ity of tablet 00:00: mouth [place] 00 every 6 Medical (six) Branch hours as needed (Pain). Take with food or milk. ibuprofen 2020-0 Yes [id number] 600mg Take 1 U nivers 600 mg 6-03 tablet by ity of tablet 00:00: mouth [place] 00 every 6 Medical (six) Branch hours as needed (Pain). Take with food or milk. ibuprofen 2020-0 Yes [id number] 600mg Take 1 U nivers 600 mg 6-03 tablet by ity of tablet 00:00: mouth [place] 00 every 6 Medical (six) Branch hours as needed (Pain). Take with food or milk. ibuprofen 2020-0 Yes [id number] 600mg Take 1 U nivers 600 mg 6-03 tablet by ity of tablet 00:00: mouth [place] 00 every 6 Medical (six) Branch hours as needed (Pain). Take with food or milk. ibuprofen 2021-0 Yes [id number] 600mg Take 1 U nivers 600 mg 6-03 tablet by ity of tablet 00:00: mouth [place] 00 every 6 Medical (six) Branch hours as needed (Pain). Take with food or milk. ibuprofen 2021-0 Yes [id number] 600mg Take 1 U nivers 600 mg 6-03 tablet by ity of tablet 00:00: mouth [place] 00 every 6 Medical (six) Branch hours as needed (Pain). Take with food or milk. ibuprofen 202-0 Yes [id number] 600mg Take 1 U nivers 600 mg 6-03 tablet by ity of tablet 00:00: mouth [place] 00 every 6 Medical (six) Branch hours as needed (Pain). Take with food or milk. ibuprofen Yes [id number] 600mg Take 1 U nivers 600 mg 6-03 tablet by ity of tablet 00:00: mouth [place] 00 every 6 Medical (six) Branch hours as needed (Pain). Take with food or milk. ibuprofen Yes [id number] 600mg Take 1 U nivers 600 mg 6-03 tablet by ity of tablet 00:00: mouth [place] 00 every 6 Medical (six) Branch hours as needed (Pain). Take with food or milk. ibuprofen Yes [id number] 600mg Take 1 U nivers 600 mg 6-03 tablet by ity of tablet 00:00: mouth [place] 00 every 6 Medical (six) Branch hours as needed (Pain). Take with food or milk. ibuprofen Yes [id number] 600mg Take 1 U nivers 600 mg 6-03 tablet by ity of tablet 00:00: mouth [place] 00 every 6 Medical (six) Branch hours as needed (Pain). Take with food or milk. 2020- No [id number] 1{tbl} Take 1 [facility] vitamin 6-03 07-21 tablet by ity of w/FA tablet 00:00: 00:00 mouth [place] 00 :00 daily. [facility] Branch 2020- No [id number] 1{tbl} Take 1 [facility] vitamin 6-03 07-21 tablet by ity of w/FA tablet 00:00: 00:00 mouth [place] 00 :00 daily. Medical Branch docusate 2020- No [id number] 240mg Take 1 U nivers calcium 240 11-27- capsule by i ty of mg capsule 00:00: 00:00 mouth once [place] 00 :00 daily as Medical needed for Branch Constipati on. ferrous 2020- No [id number] 325mg Take 1 Un dayana sulfate 325 11-27- tablet by it y of mg (65 mg 00:00: 00:00 mouth 2 [place] iron) 00 :00 (two) Medical tablet times Branch daily. SERTraline Yes [id number] 50mg Take 1 U nivers (ZOLOFT) 50 4-08 tablet by ity of mg tablet 00:00: mouth [place] 00 daily. Medical Branch SERTraline Yes [id number] 50mg Take 1 U nivers (ZOLOFT) 50 4-08 tablet by ity of mg tablet 00:00: mouth [place] 00 daily. [facility] Branch SERTraline Yes [id number] 50mg Take 1 U nivers (ZOLOFT) 50 4-08 tablet by ity of mg tablet 00:00: mouth [place] 00 daily. [facility] Branch SERTraline Yes [id number] 50mg Take 1 U nivers (ZOLOFT) 50 4-08 tablet by ity of mg tablet 00:00: mouth [place] 00 daily. [facility] Branch SERTraline Yes [id number] 50mg Take 1 U nivers (ZOLOFT) 50 4-08 tablet by ity of mg tablet 00:00: mouth [place] 00 daily. [facility] Branch SERTraline Yes [id number] 50mg Take 1 U nivers (ZOLOFT) 50 4-08 tablet by ity of mg tablet 00:00: mouth [place] 00 daily. Medical Branch SERTraline Yes [id number] 50mg Take 1 U nivers (ZOLOFT) 50 4-08 tablet by ity of mg tablet 00:00: mouth [place] 00 daily. [facility] Branch SERTraline Yes [id number] 50mg Take 1 U nivers (ZOLOFT) 50 4-08 tablet by ity of mg tablet 00:00: mouth [place] 00 daily. Medical Branch SERTraline Yes [id number] 50mg Take 1 U nivers (ZOLOFT) 50 4-08 tablet by ity of mg tablet 00:00: mouth [place] 00 daily. [facility] Branch SERTraline 0 Yes [id number] 50mg Take 1 U nivers (ZOLOFT) 50 4-08 tablet by ity of mg tablet 00:00: mouth [place] 00 daily. [facility] Branch SERTraline Yes [id number] 50mg Take 1 U nivers (ZOLOFT) 50 4-08 tablet by ity of mg tablet 00:00: mouth [place] 00 daily. [facility] Branch SERTraline Yes [id number] 50mg Take 1 U nivers (ZOLOFT) 50 4-08 tablet by ity of mg tablet 00:00: mouth [place] 00 daily. Medical Branch SERTraline 0 Yes [id number] 50mg Take 1 U nivers (ZOLOFT) 50 4-08 tablet by ity of mg tablet 00:00: mouth [place] 00 daily. Medical Branch SERTraline 0 Yes [id number] 50mg Take 1 U nivers (ZOLOFT) 50 4-08 tablet by ity of mg tablet 00:00: mouth [place] 00 daily. Medical Branch SERTraline Yes [id number] 50mg Take 1 U nivers (ZOLOFT) 50 4-08 tablet by ity of mg tablet 00:00: mouth [place] 00 daily. [facility] Branch SERTraline 2020- No [id number] 50mg Take 1 [facility] (ZOLOFT) 50 4-08 06-09 tablet by it y of mg tablet 00:00: 00:00 mouth [place] 00 :00 daily. Medical Branch SERTraline Yes [id number] 25mg Take 1 U nivers (ZOLOFT) 25 3-23 tablet by ity of mg tablet 00:00: mouth [place] 00 daily. Medical Branch SERTraline 0 Yes [id number] 25mg Take 1 U nivers (ZOLOFT) 25 3-23 tablet by ity of mg tablet 00:00: mouth [place] 00 daily. [facility] Branch SERTraline 0 Yes [id number] 25mg Take 1 U nivers (ZOLOFT) 25 3-23 tablet by ity of mg tablet 00:00: mouth [place] 00 daily. [facility] Branch SERTraline 0 Yes [id number] 25mg Take 1 U nivers (ZOLOFT) 25 3-23 tablet by ity of mg tablet 00:00: mouth [place] 00 daily. [facility] Branch SERTraline 0 Yes [id number] 25mg Take 1 U nivers (ZOLOFT) 25 3-23 tablet by ity of mg tablet 00:00: mouth [place] 00 daily. [facility] Branch SERTraline 2020- No [id number] 25mg Take 1 Univers (ZOLOFT) 25 3-23 04-22 tablet by it y of mg tablet 00:00: 00:00 mouth [place] 00 :00 daily. Medical Branch SERTraline Yes [id number] 25mg Take 1 U nivers (ZOLOFT) 25 1-27 tablet by ity of mg tablet 00:00: mouth [place] 00 daily. Medical Branch SERTraline Yes [id number] 25mg Take 1 U nivers (ZOLOFT) 25 1-27 tablet by ity of mg tablet 00:00: mouth [place] 00 daily. Medical Branch SERTraline Yes [id number] 25mg Take 1 U nivers (ZOLOFT) 25 1-27 tablet by ity of mg tablet 00:00: mouth [place] 00 daily. Medical Branch PNV 0 Yes [id number] Take 1 [facility] 102-iron-fo 1-27 TAB-CAP/M2 it y of late-dha 00:00: by mouth [place] (VITAFOL FE 00 daily. Medica l PLUS) 90 mg Branch iron- 1 mg-200 mg Cap SERTraline Yes [id number] 25mg Take 1 U nivers (ZOLOFT) 25 1-27 tablet by ity of mg tablet 00:00: mouth [place] 00 daily. Medical Branch PNV 0 Yes [id number] Take 1 [facility] 102-iron-fo 1-27 TAB-CAP/M2 it y of late-dha 00:00: by mouth [place] (VITAFOL FE 00 daily. Medica l PLUS) 90 mg Branch iron- 1 mg-200 mg Cap SERTraline Yes [id number] 25mg Take 1 U nivers (ZOLOFT) 25 1-27 tablet by ity of mg tablet 00:00: mouth [place] 00 daily. Medical Branch SERTraline 0 Yes [id number] 25mg Take 1 U nivers (ZOLOFT) 25 1-27 tablet by ity of mg tablet 00:00: mouth [place] 00 daily. Medical Branch SERTraline 0 Yes [id number] 25mg Take 1 U nivers (ZOLOFT) 25 1-27 tablet by ity of mg tablet 00:00: mouth [place] 00 daily. Medical Branch SERTraline 2020- No [id number] 25mg Take 1 Univers (ZOLOFT) 25 1-27 03-22 tablet by it y of mg tablet 00:00: 00:00 mouth [place] 00 :00 daily. Medical Branch hydrOXYzine 2019-0 Yes [id number] 50mg Take 1 Univers (VISTARIL) 6-23 capsule by ity of 50 mg 00:00: mouth 3 [place] capsule 00 (three) Medical times Branch daily as needed for Itching. buPROPion 2020-0 Yes [id number] 150mg Take 1 U nivers XL 6-23 tablet by ity of (WELLBUTRIN 00:00: mouth [place] XL) 150 mg 00 daily. Medical 24 hr Branch tablet hydrOXYzine 2020-0 Yes [id number] 50mg Take 1 [facility] (VISTARIL) 6-23 capsule by ity of 50 mg 00:00: mouth 3 [place] capsule 00 (three) Medical times Branch daily as needed for Itching. buPROPion 2020-0 Yes [id number] 150mg Take 1 U nivers XL 6-23 tablet by ity of (WELLBUTRIN 00:00: mouth [place] XL) 150 mg 00 daily. Medical 24 hr Branch tablet hydrOXYzine 2020-0 Yes [id number] 50mg Take 1 [facility] (VISTARIL) 6-23 capsule by ity of 50 mg 00:00: mouth 3 [place] capsule 00 (three) Medical times Branch daily as needed for Itching. buPROPion 2020-0 Yes [id number] 150mg Take 1 U nivers XL 6-23 tablet by ity of (WELLBUTRIN 00:00: mouth [place] XL) 150 mg 00 daily. Medical 24 hr Branch tablet hydrOXYzine 2019-0 2020- No [id number] 50mg Take 1 [facility] (VISTARIL) 6-23 10-15 capsule by it y of 50 mg 00:00: 00:00 mouth 3 [place] capsule 00 :00 (three) Medical times Branch daily as needed for Itching. buPROPion 2019-0 2020- No [id number] 150mg Take 1 [facility] XL 6-23 10-15 tablet by ity of (WELLBUTRIN 00:00: 00:00 mouth [place] XL) 150 mg 00 :00 daily. Medical 24 hr Branch tablet hydrOXYzine 2020-0 2020- No [id number] 50mg Take 1 [facility] (VISTARIL) 6-23 10-15 capsule by it y of 50 mg 00:00: 00:00 mouth 3 [place] capsule 00 :00 (three) Medical times Branch daily as needed for Itching. buPROPion 2020-0 2020- No [id number] 150mg Take 1 [facility] XL 6-23 10-15 tablet by ity of (WELLBUTRIN 00:00: 00:00 mouth [place] XL) 150 mg 00 :00 daily. [facility] 24 hr Branch tablet norethindro Yes [id number] 1{tbl} Take 1 [facility] ne 0.35 mg 1-27 tablet by ity of tablet 00:00: mouth [place] 00 daily. [facility] Branch norethindro Yes [id number] 1{tbl} Take 1 [facility] ne 0.35 mg 1-27 tablet by ity of tablet 00:00: mouth [place] 00 daily. [facility] Branch norethindro Yes [id number] 1{tbl} Take 1 [facility] ne 0.35 mg 1-27 tablet by ity of tablet 00:00: mouth [place] 00 daily. [facility] norethindro Yes [id number] 1{tbl} Take 1 [facility] ne 0.35 mg 1-27 tablet by ity of tablet 00:00: mouth [place] 00 daily. [facility] Branch norethindro Yes [id number] 1{tbl} Take 1 [facility] ne 0.35 mg 1-27 tablet by ity of tablet 00:00: mouth [place] 00 daily. [facility] Branch [facility] [id number] 1{tbl} Take 1 [facility] ne 0.35 mg 1-27 tablet by ity of tablet 00:00: mouth [place] 00 daily. [facility] norethindro 2019- No [id number] 1{tbl} Take 1 [facility] ne 0.35 mg 1-27 10-15 tablet by ity of tablet 00:00: 00:00 mouth [place] 00 :00 daily. [facility] Branch norethindro 2020- No [id number] 1{tbl} Take 1 [facility] ne 0.35 mg 1-27 10-15 tablet by ity of tablet 00:00: 00:00 mouth [place] 00 :00 daily. [facility] 2018-06 Yes [id number] 1{tbl} Take 1 [facility] vitamin 2-04 102 tablet by ity of w/FA tablet 00:00: mouth [place] 00 daily. [facility] Branch 2018-06 Yes [id number] 1{tbl} Take 1 [facility] vitamin 2-04 102 tablet by ity of w/FA tablet 00:00: mouth [place] 00 daily. Medical Branch 2019- Yes [id number] 1{tbl} Take 1 [facility] vitamin 2-04 102 tablet by ity of w/FA tablet 00:00: mouth [place] 00 daily. Medical Branch 2019- Yes [id number] 1{tbl} Take 1 [facility] vitamin 2-04 102 tablet by ity of w/FA tablet 00:00: mouth [place] 00 daily. Medical Branch 2019- Yes [id number] 1{tbl} Take 1 [facility] vitamin 2-04 102 tablet by ity of w/FA tablet 00:00: mouth [place] 00 daily. Medical Branch 2019- Yes [id number] 1{tbl} Take 1 [facility] vitamin 2-04 102 tablet by ity of w/FA tablet 00:00: mouth [place] 00 daily. Medical Branch 2019- Yes [id number] 1{tbl} Take 1 [facility] vitamin 2-04 102 tablet by ity of w/FA tablet 00:00: mouth [place] 00 daily. Medical Branch 2019- Yes [id number] 1{tbl} Take 1 [facility] vitamin 2-04 102 tablet by ity of w/FA tablet 00:00: mouth [place] 00 daily. Medical Branch 2019- Yes [id number] 1{tbl} Take 1 [facility] vitamin 2-04 102 tablet by ity of w/FA tablet 00:00: mouth [place] 00 daily. Medical Branch 2019- Yes [id number] 1{tbl} Take 1 [facility] vitamin 2-04 102 tablet by ity of w/FA tablet 00:00: mouth [place] 00 daily. Medical Branch 2019- Yes [id number] 1{tbl} Take 1 [facility] vitamin 2-04 102 tablet by ity of w/FA tablet 00:00: mouth [place] 00 daily. Medical Branch 2019- Yes [id number] 1{tbl} Take 1 [facility] vitamin 2-04 102 tablet by ity of w/FA tablet 00:00: mouth [place] 00 daily. Medical Branch 2019- Yes [id number] 1{tbl} Take 1 [facility] vitamin 2-04 102 tablet by ity of w/FA tablet 00:00: mouth [place] 00 daily. Medical Branch 2019- Yes [id number] 1{tbl} Take 1 [facility] vitamin 2-04 102 tablet by ity of w/FA tablet 00:00: mouth [place] 00 daily. Medical Branch 2018-06 Yes [id number] 1{tbl} Take 1 [facility] vitamin 2-04 102 tablet by ity of w/FA tablet 00:00: mouth [place] 00 daily. Medical Branch 2018-06 Yes [id number] 1{tbl} Take 1 [facility] vitamin 2-04 102 tablet by ity of w/FA tablet 00:00: mouth [place] 00 daily. Medical Branch 2018-06 Yes [id number] 1{tbl} Take 1 [facility] vitamin 2-04 102 tablet by ity of w/FA tablet 00:00: mouth [place] 00 daily. Medical Branch 2018-06 Yes [id number] 1{tbl} Take 1 [facility] vitamin 2-04 102 tablet by ity of w/FA tablet 00:00: mouth [place] 00 daily. Medical Branch ferrous 2018- Yes [id number] 325mg Take 1 [facility] sulfate 325 2-04 102 tablet by ity of mg (65 mg 00:00: mouth 2 [place] iron) 00 (two) Medical tablet times Branch daily. ibuprofen 2019 Yes [id number] 600mg Take 1 [facility] 600 mg 2-04 102 tablet by ity of tablet 00:00: mouth [place] 00 every 6 Medical (six) Branch hours as needed (Pain). Take with food or milk. 2018-06 Yes [id number] 1{tbl} Take 1 [facility] vitamin 2-04 102 tablet by ity of w/FA tablet 00:00: mouth [place] 00 daily. Medical Branch ferrous 2018- Yes [id number] 325mg Take 1 [facility] sulfate 325 2-04 102 tablet by ity of mg (65 mg 00:00: mouth 2 [place] iron) 00 (two) Medical tablet times Branch daily. ibuprofen 2019- Yes [id number] 600mg Take 1 [facility] 600 mg 2-04 102 tablet by ity of tablet 00:00: mouth [place] 00 every 6 Medical (six) Branch hours as needed (Pain). Take with food or milk. 2018- Yes [id number] 1{tbl} Take 1 [facility] vitamin 2-04 102 tablet by ity of w/FA tablet 00:00: mouth [place] 00 daily. Medical Branch ferrous 2018- Yes [id number] 325mg Take 1 [facility] sulfate 325 2-04 102 tablet by ity of mg (65 mg 00:00: mouth 2 [place] iron) 00 (two) Medical tablet times Branch daily. ibuprofen 2018-06 Yes [id number] 600mg Take 1 [facility] 600 mg 2-04 102 tablet by ity of tablet 00:00: mouth [place] 00 every 6 Medical (six) Branch hours as needed (Pain). Take with food or milk. 2018- Yes [id number] 1{tbl} Take 1 [facility] vitamin 2-04 102 tablet by ity of w/FA tablet 00:00: mouth [place] 00 daily. Medical Branch ferrous 2018- Yes [id number] 325mg Take 1 [facility] sulfate 325 2-04 102 tablet by ity of mg (65 mg 00:00: mouth 2 [place] iron) 00 (two) Medical tablet times Branch daily. ibuprofen 2018-06 Yes [id number] 600mg Take 1 [facility] 600 mg 2-04 102 tablet by ity of tablet 00:00: mouth [place] 00 every 6 Medical (six) Branch hours as needed (Pain). Take with food or milk. 2018-06 Yes [id number] 1{tbl} Take 1 [facility] vitamin 2-04 102 tablet by ity of w/FA tablet 00:00: mouth [place] 00 daily. Medical Branch ferrous 2018- Yes [id number] 325mg Take 1 [facility] sulfate 325 2-04 102 tablet by ity of mg (65 mg 00:00: mouth 2 [place] iron) 00 (two) Medical tablet times Branch daily. ibuprofen 2018-06 Yes [id number] 600mg Take 1 [facility] 600 mg 2-04 102 tablet by ity of tablet 00:00: mouth [place] 00 every 6 Medical (six) Branch hours as needed (Pain). Take with food or milk. 2018- Yes [id number] 1{tbl} Take 1 [facility] vitamin 2-04 102 tablet by ity of w/FA tablet 00:00: mouth [place] 00 daily. Medical Branch ferrous 2018- Yes [id number] 325mg Take 1 [facility] sulfate 325 2-04 102 tablet by ity of mg (65 mg 00:00: mouth 2 [place] iron) 00 (two) Medical tablet times Branch daily. ibuprofen 2018-06 Yes [id number] 600mg Take 1 [facility] 600 mg 2-04 102 tablet by ity of tablet 00:00: mouth [place] 00 every 6 Medical (six) Branch hours as needed (Pain). Take with food or milk. 2018 Yes [id number] 1{tbl} Take 1 [facility] vitamin 2-04 102 tablet by ity of w/FA tablet 00:00: mouth [place] 00 daily. Medical Branch ferrous 2019- Yes [id number] 325mg Take 1 [facility] sulfate 325 2-04 102 tablet by ity of mg (65 mg 00:00: mouth 2 [place] iron) 00 (two) Medical tablet times Branch daily. ibuprofen 2019 Yes [id number] 600mg Take 1 [facility] 600 mg 2-04 102 tablet by ity of tablet 00:00: mouth [place] 00 every 6 Medical (six) Branch hours as needed (Pain). Take with food or milk. 2018-06 Yes [id number] 1{tbl} Take 1 [facility] vitamin 2-04 102 tablet by ity of w/FA tablet 00:00: mouth [place] 00 daily. Medical Branch ferrous 2018-06 Yes [id number] 325mg Take 1 [facility] sulfate 325 2-04 102 tablet by ity of mg (65 mg 00:00: mouth 2 [place] iron) 00 (two) Medical tablet times Branch daily. ibuprofen 2018-06 Yes [id number] 600mg Take 1 [facility] 600 mg 2-04 102 tablet by ity of tablet 00:00: mouth [place] 00 every 6 Medical (six) Branch hours as needed (Pain). Take with food or milk. 2018-06 Yes [id number] 1{tbl} Take 1 [facility] vitamin 2-04 102 tablet by ity of w/FA tablet 00:00: mouth [place] 00 daily. Medical Branch 2019- Yes [id number] 1{tbl} Take 1 [facility] vitamin 2-04 102 tablet by ity of w/FA tablet 00:00: mouth [place] 00 daily. Medical Branch 2018-06 Yes [id number] 1{tbl} Take 1 [facility] vitamin 2-04 102 tablet by ity of w/FA tablet 00:00: mouth [place] 00 daily. Medical Branch 2018- Yes [id number] 1{tbl} Take 1 [facility] vitamin 2-04 102 tablet by ity of w/FA tablet 00:00: mouth [place] 00 daily. Medical Branch 2018- Yes [id number] 1{tbl} Take 1 [facility] vitamin 2-04 102 tablet by ity of w/FA tablet 00:00: mouth [place] 00 daily. Medical Branch 2019- Yes [id number] 1{tbl} Take 1 [facility] vitamin 2-04 102 tablet by ity of w/FA tablet 00:00: mouth [place] 00 daily. Medical Branch 2019- Yes [id number] 1{tbl} Take 1 [facility] vitamin 2-04 102 tablet by ity of w/FA tablet 00:00: mouth [place] 00 daily. Medical Branch 2019- Yes [id number] 1{tbl} Take 1 [facility] vitamin 2-04 102 tablet by ity of w/FA tablet 00:00: mouth [place] 00 daily. Medical Branch 2019- Yes [id number] 1{tbl} Take 1 [facility] vitamin 2-04 102 tablet by ity of w/FA tablet 00:00: mouth [place] 00 daily. Medical Branch 2019- Yes [id number] 1{tbl} Take 1 [facility] vitamin 2-04 102 tablet by ity of w/FA tablet 00:00: mouth [place] 00 daily. Medical Branch 2019- Yes [id number] 1{tbl} Take 1 [facility] vitamin 2-04 102 tablet by ity of w/FA tablet 00:00: mouth [place] 00 daily. Medical Branch 2019- Yes [id number] 1{tbl} Take 1 [facility] vitamin 2-04 102 tablet by ity of w/FA tablet 00:00: mouth [place] 00 daily. Medical Branch 2019- Yes [id number] 1{tbl} Take 1 [facility] vitamin 2-04 102 tablet by ity of w/FA tablet 00:00: mouth [place] 00 daily. Medical Branch 2019- Yes [id number] 1{tbl} Take 1 [facility] vitamin 2-04 102 tablet by ity of w/FA tablet 00:00: mouth [place] 00 daily. Medical Branch 2019- Yes [id number] 1{tbl} Take 1 [facility] vitamin 2-04 102 tablet by ity of w/FA tablet 00:00: mouth [place] 00 daily. Medical Branch 2019- Yes [id number] 1{tbl} Take 1 [facility] vitamin 2-04 102 tablet by ity of w/FA tablet 00:00: mouth [place] 00 daily. Medical Branch 2019- Yes [id number] 1{tbl} Take 1 [facility] vitamin 2-04 102 tablet by ity of w/FA tablet 00:00: mouth [place] 00 daily. Medical Branch 2019-1 Yes [id number] 1{tbl} Take 1 [facility] vitamin 2-04 102 tablet by ity of w/FA tablet 00:00: mouth [place] 00 daily. Medical Branch [facility] 2018-06 Yes [id number] 1{tbl} Take 1 [facility] vitamin 2-04 102 tablet by ity of w/FA tablet 00:00: mouth [place] 00 daily. Medical Branch [facility] 2018-06 Yes [id number] 1{tbl} Take 1 [facility] vitamin 2-04 102 tablet by ity of w/FA tablet 00:00: mouth [place] 00 daily. Medical Branch [facility] 2018-06- No [id number] 1{tbl} Take 1 [facility] vitamin 2-04 06-03 102 tablet by ity of w/FA tablet 00:00: 00:00 mouth [place] 00 :00 daily. Medical [facility] 2018-06- No [id number] 1{tbl} Take 1 [facility] vitamin 2-04 06-03 102 tablet by ity of w/FA tablet 00:00: 00:00 mouth [place] 00 :00 daily. Medical Branch [facility] 2018-06- No [id number] 1{tbl} Take 1 [facility] vitamin 2-04 06-03 102 tablet by ity of w/FA tablet 00:00: 00:00 mouth [place] 00 :00 daily. Medical Branch ferrous 2018-06- No [id number] 325mg Take 1 [facility] sulfate 325 2-04 10-15 102 tablet by it y of mg (65 mg 00:00: 00:00 mouth 2 [place] iron) 00 :00 (two) Medical tablet times Branch daily. ibuprofen 2018-06- No [id number] 600mg Take 1 [facility] 600 mg 2-04 10-15 102 tablet by ity of tablet 00:00: 00:00 mouth [place] 00 :00 every 6 Medical (six) Branch hours as needed (Pain). Take with food or milk. ferrous 2018-06- No [id number] 325mg Take 1 [facility] sulfate 325 2-04 10-15 102 tablet by it y of mg (65 mg 00:00: 00:00 mouth 2 [place] iron) 00 :00 (two) Medical tablet times Branch daily. ibuprofen 2018-06- No [id number] 600mg Take 1 [facility] 600 mg 2-04 10-15 102 tablet by ity of tablet 00:00: 00:00 mouth [place] 00 :00 every 6 Medical (six) Branch hours as needed (Pain). Take with food or milk. diphenhydra 2019-0 Yes Take by Un dayana mine HCl 7-11 mouth. ity of (UNISOM, 19:25: [place] DIPHENHYDRA 31 Medical MINE, ORAL) Branch diphenhydra 2019-0 Yes Take by Un dayana mine HCl 7-11 mouth. ity of (UNISOM, 19:25: [place] DIPHENHYDRA 31 Medical MINE, ORAL) Branch diphenhydra 2019-0 Yes Take by Un [facility] mine HCl 7-11 mouth. ity of (UNISOM, 19:25: [place] DIPHENHYDRA 31 Medical MINE, ORAL) Branch diphenhydra 2019-0 Yes Take by Un [facility] mine HCl 7-11 mouth. ity of (UNISOM, 19:25: [place] DIPHENHYDRA 31 Medical MINE, ORAL) Branch diphenhydra 2019-0 Yes Take by Un [facility] mine HCl 7-11 mouth. ity of (UNISOM, 19:25: [place] DIPHENHYDRA 31 Medical MINE, ORAL) Branch diphenhydra 2018-0 Yes Take by Un [facility] mine HCl 7-11 mouth. ity of (UNISOM, 19:25: [place] DIPHENHYDRA 31 Medical MINE, ORAL) Branch diphenhydra 2019-0 Yes Take by Un [facility] mine HCl 7-11 mouth. ity of (UNISOM, 19:25: [place] DIPHENHYDRA 31 Medical MINE, ORAL) Branch diphenhydra 2019-0 Yes Take by Un [facility] mine HCl 7-11 mouth. ity of (UNISOM, 19:25: [place] DIPHENHYDRA 31 Medical MINE, ORAL) Branch diphenhydra 2019-0 Yes Take by Un [facility] mine HCl 7-11 mouth. ity of (UNISOM, 19:25: [place] DIPHENHYDRA 31 Medical MINE, ORAL) Branch diphenhydra 2019-0 Yes Take by Un [facility] mine HCl 7-11 mouth. ity of (UNISOM, 19:25: [place] DIPHENHYDRA 31 Medical MINE, ORAL) Branch diphenhydra 2019-0 Yes Take by Un [facility] mine HCl 7-11 mouth. ity of (UNISOM, 19:25: [place] DIPHENHYDRA 31 Medical MINE, ORAL) Branch diphenhydra 2018-0 Yes Take by Un [facility] mine HCl 7-11 mouth. ity of (UNISOM, 19:25: [place] DIPHENHYDRA 31 Medical MINE, ORAL) Branch diphenhydra 2018-0 Yes Take by Un [facility] mine HCl 7-11 mouth. ity of (UNISOM, 19:25: [place] DIPHENHYDRA 31 Medical MINE, ORAL) Branch diphenhydra 2018-0 Yes Take by Un [facility] mine HCl 7-11 mouth. ity of (UNISOM, 19:25: [place] DIPHENHYDRA 31 Medical MINE, ORAL) Branch diphenhydra 2018-0 Yes Take by Un [facility] mine HCl 7-11 mouth. ity of (UNISOM, 19:25: [place] DIPHENHYDRA 31 Medical MINE, ORAL) Branch diphenhydra 2018-0 Yes Take by Un [facility] mine HCl 7-11 mouth. ity of (UNISOM, 19:25: [place] DIPHENHYDRA 31 Medical MINE, ORAL) Branch diphenhydra 2018-0 Yes Take by [facility] mine HCl 7-11 mouth. ity of (UNISOM, 19:25: [place] DIPHENHYDRA 31 Medical MINE, ORAL) Branch [id number] 2018- Yes 1{dose} Take 1 Un [facility] carb,glu-FA 4-18 Dose by ity o f -dss-dha 00:00: mouth [place] (CITRANATAL 00 daily. Medica l ASSURE) 35 Branch mg iron-1 mg -50 mg-300 mg combo pack [id number] Yes 1{dose} Take 1 Un [facility] carb,glu-FA 4-18 Dose by ity o f -dss-dha 00:00: mouth [place] (CITRANATAL 00 daily. Medica l ASSURE) 35 Branch mg iron-1 mg -50 mg-300 mg combo pack [id number] Yes 1{dose} Take 1 Un [facility] carb,glu-FA 4-18 Dose by ity o f -dss-dha 00:00: mouth [place] (CITRANATAL 00 daily. Medica l ASSURE) 35 Branch mg iron-1 mg -50 mg-300 mg combo pack [id number] 2019-0 Yes 1{dose} Take 1 Un [facility] carb,glu-FA 4-18 Dose by ity o f -dss-dha 00:00: mouth [place] (CITRANATAL 00 daily. Medica l ASSURE) 35 Branch mg iron-1 mg -50 mg-300 mg combo pack [id number] 2019-0 Yes 1{dose} Take 1 Un [facility] carb,glu-FA 4-18 Dose by ity o f -dss-dha 00:00: mouth [place] (CITRANATAL 00 daily. Medica l ASSURE) 35 Branch mg iron-1 mg -50 mg-300 mg combo pack [id number] 2019-0 Yes 1{dose} Take 1 Un [facility] carb,glu-FA 4-18 Dose by ity o f -dss-dha 00:00: mouth [place] (CITRANATAL 00 daily. Medica l ASSURE) 35 Branch mg iron-1 mg -50 mg-300 mg combo pack [id number] 2019-0 Yes 1{dose} Take 1 Un [facility] carb,glu-FA 4-18 Dose by ity o f -dss-dha 00:00: mouth [place] (CITRANATAL 00 daily. Medica l ASSURE) 35 Branch mg iron-1 mg -50 mg-300 mg combo pack [id number] 2019-0 Yes 1{dose} Take 1 Un [facility] carb,glu-FA 4-18 Dose by ity o f -dss-dha 00:00: mouth [place] (CITRANATAL 00 daily. Medica l ASSURE) 35 Branch mg iron-1 mg -50 mg-300 mg combo pack [id number] 2019-0 Yes 1{dose} Take 1 Un [facility] carb,glu-FA 4-18 Dose by ity o f -dss-dha 00:00: mouth [place] (CITRANATAL 00 daily. Medica l ASSURE) 35 Branch mg iron-1 mg -50 mg-300 mg combo pack [id number] 2019-0 Yes 1{dose} Take 1 Un [facility] carb,glu-FA 4-18 Dose by ity o f -dss-dha 00:00: mouth [place] (CITRANATAL 00 daily. Medica l ASSURE) 35 Branch mg iron-1 mg -50 mg-300 mg combo pack [id number] 2019-0 Yes 1{dose} Take 1 Un [facility] carb,glu-FA 4-18 Dose by ity o f -dss-dha 00:00: mouth [place] (CITRANATAL 00 daily. Medica l ASSURE) 35 Branch mg iron-1 mg -50 mg-300 mg combo pack [id number] 2019-0 Yes 1{dose} Take 1 Un [facility] carb,glu-FA 4-18 Dose by ity o f -dss-dha 00:00: mouth [place] (CITRANATAL 00 daily. Medica l ASSURE) 35 Branch mg iron-1 mg -50 mg-300 mg combo pack [id number] 2019-0 Yes 1{dose} Take 1 Un [facility] carb,glu-FA 4-18 Dose by ity o f -dss-dha 00:00: mouth [place] (CITRANATAL 00 daily. Medica l ASSURE) 35 Branch mg iron-1 mg -50 mg-300 mg combo pack [id number] 2019-0 Yes 1{dose} Take 1 Un [facility] carb,glu-FA 4-18 Dose by ity o f -dss-dha 00:00: mouth [place] (CITRANATAL 00 daily. Medica l ASSURE) 35 Branch mg iron-1 mg -50 mg-300 mg combo pack [id number] 2019-0 Yes 1{dose} Take 1 Un [facility] carb,glu-FA 4-18 Dose by ity o f -dss-dha 00:00: mouth [place] (CITRANATAL 00 daily. Medica l ASSURE) 35 Branch mg iron-1 mg -50 mg-300 mg combo pack [id number] 2019-0 Yes 1{dose} Take 1 Un [facility] carb,glu-FA 4-18 Dose by ity o f -dss-dha 00:00: mouth [place] (CITRANATAL 00 daily. Medica l ASSURE) 35 Branch mg iron-1 mg -50 mg-300 mg combo pack [id number] 2019-0 Yes 1{dose} Take 1 Un [facility] carb,glu-FA 4-18 Dose by ity o f -dss-dha 00:00: mouth [place] (CITRANATAL 00 daily. Medica l ASSURE) 35 Branch mg iron-1 mg -50 mg-300 mg combo pack Immunizations Ordered Filled Immunization Date Status Comments [facility] e Immunization Name Name TDAP 2020-09-01 Completed [facility] 00:[facility]:00 [place] [facility] TDAP 2020-09-01 Completed [facility] 00:00:00 [place] [facility] TDAP 2020-09-01 Completed [facility] 00[facility]00:00 [place] [facility] TDAP 2020-09-01 Completed [facility] 00:00:00 [place] [facility] TDAP 2020-09-01 Completed [facility] 00:00:00 [place] [facility] TDAP 2020-09-01 Completed [facility] 00:00:00 [place] [facility] TDAP 2020-09-01 Completed [facility] 00:00:00 [place] [facility] TDAP 2020-09-01 Completed [facility] 00:00:00 [place] [facility] TDAP 2020-09-01 Completed [facility] 00:00:00 [place] [facility] TDAP 2020-09-01 Completed [facility] 00:00:00 [place] [facility] TDAP 2020-09-01 Completed [facility] 00:00:00 [place] [facility] TDAP 2020-09-01 Completed [facility] 00:00:00 [place] [facility] TDAP 2020-09-01 Completed [facility] 00:00:00 [place] [facility] TDAP 2020-09-01 Completed [facility] 00:00:00 [place] [facility] TDAP 2020-09-01 Completed [facility] 00:00:00 [place] [facility] TDAP 2020-09-01 Completed [facility] 00:00:00 [facility] TDAP 2020-09-01 Completed [facility] 00:00:00 [facility] TDAP 2020-09-01 Completed [facility] 00:00:00 [facility] Branch TDAP 2020-09-01 Completed [facility] 00:00:00 [place] [facility] TDAP 2020-09-01 Completed [facility] 00:00:00 [place] [facility] TDAP 2020-09-01 Completed [facility] 00:00:00 [place] [facility] TDAP 2020-09-01 Completed [facility] 00:00:00 [place] [facility] TDAP 2020-09-01 Completed [facility] 00:00:00 [place] [facility] TDAP 2020-09-01 Completed [facility] 00:00:00 [place] [facility] TDAP 2020-09-01 Completed [facility] 00:00:00 [place] [facility] TDAP 2020-09-01 Completed [facility] 00:00:00 [place] [facility] TDAP 2020-09-01 Completed [facility] 00:00:00 [place] [facility] TDAP 2020-09-01 Completed [facility] 00:00:00 [place] [facility] TDAP 2020-09-01 Completed [facility] 00:00:00 [place] [facility] TDAP 2020-09-01 Completed [facility] 00:00:00 [place] [facility] TDAP 2020-09-01 Completed [facility] 00:00:00 [place] [facility] TDAP 2020-09-01 Completed [facility] 00:00:00 [place] [facility] TDAP 2020-09-01 Completed [facility] 00:00:00 [place] [facility] TDAP 2020-09-01 Completed [facility] 00:00:00 [place] [facility] TDAP 2020-09-01 Completed [facility] 00:00:00 [place] [facility] TDAP 2020-09-01 Completed [facility] 00:00:00 [place] [facility] TDAP 2020-09-01 Completed [facility] 00:00:00 [facility] [place] TDAP 2020-09-01 Completed [facility] 00:00:00 [place] [facility] [place] TDAP 2020-09-01 Completed [facility] 00:00:00 [facility] [place] TDAP 2020-09-01 Completed [facility] 00:00:00 [place] [facility] [place] TDAP 2020-09-01 Completed [facility] 00:00:00 [place] [facility] [place] TDAP 2020-09-01 Completed [facility] 00[facility]00:00 [place] [facility] [place] TDAP 2020-09-01 Completed [facility] 00:00:00 [place] [facility] [place] TDAP 2020-09-01 Completed [facility] 00:00:00 [facility] Influenza Virus 2020-04-10 Completed Universit y of Vaccine Quad .5 mL 00:00:00 [place] [facility] 6+ MO Branch Influenza Virus 2020-04-10 Completed [facility] of Vacc[facility] .5 mL 00:00:00 [place] [facility] 6+ MO [facility] Influenza Virus 2020-04-10 Completed [facility] y of [facility] .5 mL 00:00:00 [place] [facility] 6+ MO [facility] Influenza Virus 2020-04-10 Completed [facility] of [facility] .5 mL 00:00:00 [place] [facility] 6+ MO [facility] Influenza Virus 2020-04-10 Completed [facility] of [facility] .5 mL 00:00:00 [place] [facility] 6+ MO [facility] Influenza Virus 2020-04-10 Completed [facility] of Vacc[facility] .5 mL 00:00:00 [place] [facility] 6+ MO [facility] Influenza Virus 2020-04-10 Completed [facility] of [facility] .5 mL 00:00:00 [place] [facility] 6+ MO [facility] Influenza Virus 2020-04-10 Completed [facility] of Vacc[facility] .5 mL 00:00:00 [place] [facility] 6+ MO [facility] Influenza Virus 2020-04-10 Completed [facility] y of Vacc[facility] .5 mL 00:00:00 [place] [facility] 6+ MO [facility] Influenza Virus 2020-04-10 Completed [facility] y of Vacc[facility] .5 mL 00:00:00 [place] [facility] 6+ MO [facility] Influenza Virus 2020-04-10 Completed [facility]it y of Vaccine [facility] .5 mL 00:00:00 [place] [facility] 6+ MO [facility] Influenza Virus 2020-04-10 Completed [facility]it y of Vacc[facility] .5 mL 00:00:00 [place] [facility] 6+ MO [facility] Influenza Virus 2020-04-10 Completed [facility]it y of Vacc[facility] .5 mL 00:00:00 [place] [facility] 6+ MO Branch Influenza Virus 2020-04-10 Completed [facility] y of [facility] .5 mL 00:00:00 [place] [facility] 6+ MO Branch Influenza Virus 2020-04-10 Completed [facility] of Vacc[facility] .5 mL 00:00:00 [place] [facility] 6+ MO Branch Influenza Virus 2020-04-10 Completed [facility]it y of Vaccine [facility] .5 mL 00:00:00 [place] [facility] 6+ MO Branch Influenza Virus 2020-04-10 Completed [facility] of Vaccine [facility] .5 mL 00:00:00 [place] [facility] 6+ MO Branch Influenza Virus 2020-04-10 Completed [facility]it y of Vaccine [facility] .5 mL 00:00:00 [place] [facility] 6+ MO Branch Influenza Virus 2020-04-10 Completed [facility]it y of Vaccine [facility] .5 mL 00:00:00 [place] [facility] 6+ MO Branch Influenza Virus 2020-04-10 Completed [facility]it y of Vaccine [facility] .5 mL 00:00:00 [place] [facility] 6+ MO Branch Influenza Virus 2020-04-10 Completed [facility] y of Vacc[facility] .5 mL 00:00:00 [place] [facility] 6+ MO Branch Influenza Virus 2020-04-10 Completed [facility] y of Vacc[facility] .5 mL 00:00:00 [place] [facility] 6+ MO Branch Influenza Virus 2020-04-10 Completed [facility] y of Vacc[facility] .5 mL 00:00:00 [place] [facility] 6+ MO Branch Influenza Virus 2020-04-10 Completed [facility] y of Vaccine [facility] .5 mL 00:00:00 [place] [facility] 6+ MO Branch Influenza Virus 2020-04-10 Completed [facility] y of Vaccine [facility] .5 mL 00:00:00 [place] [facility] 6+ MO Branch Influenza Virus 2020-04-10 Completed [facility] of Vaccine [facility] .5 mL 00:00:00 [place] [facility] 6+ MO Branch Influenza Virus 2020-04-10 Completed [facility] of [facility] .5 mL 00:00:00 [place] [facility] 6+ MO Branch Influenza Virus 2020-04-10 Completed [facility] of Vacc[facility] .5 mL 00:00:00 [place] [facility] 6+ MO Branch Influenza Virus 2020-04-10 Completed [facility] of [facility] .5 mL 00:00:00 [place] [facility] 6+ MO Branch Influenza Virus 2020-04-10 Completed [facility] of [facility] .5 mL 00:00:00 [place] [facility] 6+ MO Branch Influenza Virus 2020-04-10 Completed [facility] of [facility] .5 mL 00:00:00 [place] [facility] 6+ MO Branch Influenza Virus 2020-04-10 Completed [facility] y of Vacc[facility] .5 mL 00:00:00 [place] [facility] 6+ MO Branch Influenza Virus 2020-04-10 Completed [facility] y of Vaccine Quad .5 mL 00:00:00 [place] [facility] 6+ MO Branch Influenza Virus 2020-04-10 Completed [facility] y of Vaccine Quad .5 mL 00:00:00 [place] [facility] 6+ MO Branch Influenza Virus 2020-04-10 Completed [facility]it y of Vaccine Quad .5 mL 00:00:00 [place] [facility] 6+ MO Branch Influenza Virus 2020-04-10 Completed [facility] y of Vaccine Quad .5 mL 00:00:00 [place] [facility] 6+ MO Branch Influenza Virus 2020-04-10 Completed [facility] y of Vaccine [facility] .5 mL 00:00:00 [place] [facility] 6+ MO Branch Influenza Virus 2020-04-10 Completed [facility] y of Vaccine [facility] .5 mL 00:00:00 [place] [facility] 6+ MO Branch Influenza Virus 2020-04-10 Completed [facility] y of Vaccine Quad .5 mL 00:00:00 [place] [facility] 6+ MO Branch Influenza Virus 2020-04-10 Completed [facility] y of Vaccine Quad .5 mL 00:00:00 [place] [facility] 6+ MO Branch Influenza Virus 2020-04-10 Completed [facility] y of Vaccine [facility] .5 mL 00:00:00 [place] [facility] 6+ MO Branch Influenza Virus 2020-04-10 Completed [facility] y of Vaccine Quad .5 mL 00:00:00 [place] [facility] 6+ MO Branch Influenza Virus 2020-04-10 Completed [facility] y of Vaccine [facility] .5 mL 00:00:00 [place] [facility] 6+ MO Branch Influenza Virus 2020-04-10 Completed [facility] y of Vaccine Quad .5 mL 00:00:00 [place] [facility] 6+ MO Branch Influenza Virus 2020-04-10 Completed [facility] y of Vaccine Quad .5 mL 00:00:00 [place] [facility] 6+ MO Branch Influenza Virus 2020-04-10 Completed [facility] y of Vaccine Quad .5 mL 00:00:00 [place] [facility] 6+ MO Branch Influenza Virus 2020-04-10 Completed [facility] y of Vaccine Quad .5 mL 00:00:00 [place] [facility] 6+ MO Branch Influenza Virus 2020-04-10 Completed [facility] y of Vaccine Quad .5 mL 00:00:00 [place] [facility] 6+ MO Branch Influenza Virus 2020-04-10 Completed [facility] y of Vaccine Quad .5 mL 00:00:00 [place] [facility] 6+ MO Branch Influenza Virus 2020-04-10 Completed [facility] y of Vaccine Quad .5 mL 00:00:00 [place] [facility] 6+ MO Branch Influenza Virus 2020-04-10 Completed [facility] y of Vaccine Quad .5 mL 00:00:00 [place] [facility] 6+ MO Branch Influenza Virus 2020-04-10 Completed [facility] y of Vaccine Quad .5 mL 00:00:00 [place] [facility] 6+ MO Branch Influenza Virus 2020-04-10 Completed [facility] y of Vaccine Quad .5 mL 00:00:00 [place] [facility] 6+ MO Branch Influenza Virus 2020-04-10 Completed [facility] y of Vaccine Quad .5 mL 00:00:00 [place] [facility] 6+ MO Branch Influenza Virus 2020-04-10 Completed [facility] y of Vaccine Quad .5 mL 00:00:00 [place] [facility] 6+ MO Branch Influenza Virus 2020-04-10 Completed [facility] y of Vaccine Quad .5 mL 00:00:00 [place] [facility] 6+ MO Branch Influenza Virus 2020-04-10 Completed [facility] y of Vaccine Quad .5 mL 00:00:00 [place] [facility] 6+ MO Branch Influenza Virus 2020-04-10 Completed [facility] y of Vaccine Quad .5 mL 00:00:00 [place] [facility] 6+ MO Branch Influenza Virus 2020-04-10 Completed [facility] y of Vaccine Quad .5 mL 00:00:00 [place] [facility] 6+ MO Branch Influenza Virus 2020-04-10 Completed [facility] y of Vaccine Quad .5 mL 00:00:00 [place] [facility] 6+ MO Branch Influenza Virus 2020-04-10 Completed [facility] y of Vaccine Quad .5 mL 00:00:00 [place] [facility] 6+ MO Branch Influenza Virus 2020-04-10 Completed [facility] y of Vaccine Quad .5 mL 00:00:00 [place] [facility] 6+ MO Branch Influenza Virus 2020-04-10 Completed [facility] y of Vaccine Quad .5 mL 00:00:00 [place] [facility] 6+ MO Branch Influenza Virus 2020-04-10 Completed [facility] y of Vaccine Quad .5 mL 00:00:00 [place] [facility] 6+ MO Branch Influenza Virus 2019-04-05 Completed [facility] y of Vaccine Quad .5 mL 00:00:00 [place] [facility] 6+ MO Branch Influenza Virus 2019-04-05 Completed [facility] y of Vaccine Quad .5 mL 00:00:00 [place] [facility] 6+ MO Branch Influenza Virus 2019-04-05 Completed [facility] y of Vaccine Quad .5 mL 00:00:00 [place] [facility] 6+ MO Branch Influenza Virus 2019-04-05 Completed [facility]it y of Vaccine Quad .5 mL 00:00:00 [place] [facility] 6+ MO Branch Influenza Virus 2019-04-05 Completed [facility] y of Vaccine Quad .5 mL 00:00:00 [place] [facility] 6+ MO Branch Influenza Virus 2019-04-05 Completed [facility] y of Vaccine Quad .5 mL 00:00:00 [place] [facility] 6+ MO Branch Influenza Virus 2019-04-05 Completed [facility] y of Vaccine Quad .5 mL 00:00:00 [place] [facility] 6+ MO Branch Influenza Virus 2019-04-05 Completed [facility] y of Vaccine Quad .5 mL 00:00:00 [place] [facility] 6+ MO Branch Influenza Virus 2019-04-05 Completed [facility] y of Vaccine Quad .5 mL 00:00:00 [place] [facility] 6+ MO Branch Influenza Virus 2019-04-05 Completed [facility] y of Vaccine Quad .5 mL 00:00:00 [place] [facility] 6+ MO Branch Influenza Virus 2019-04-05 Completed [facility] y of Vaccine Quad .5 mL 00:00:00 [place] [facility] 6+ MO Branch Influenza Virus 2019-04-05 Completed [facility] y of Vaccine Quad .5 mL 00:00:00 [place] [facility] 6+ MO Branch Influenza Virus 2019-04-05 Completed [facility] y of Vaccine Quad .5 mL 00:00:00 [place] [facility] 6+ MO Branch Influenza Virus 2019-04-05 Completed [facility] y of Vaccine Quad .5 mL 00:00:00 [place] [facility] 6+ MO Branch Influenza Virus 2019-04-05 Completed [facility] y of Vaccine Quad .5 mL 00:00:00 [place] [facility] 6+ MO Branch Influenza Virus 2019-04-05 Completed [facility] y of Vaccine Quad .5 mL 00:00:00 [place] [facility] 6+ MO Branch Influenza Virus 2019-04-05 Completed [facility] y of Vaccine Quad .5 mL 00:00:00 [place] [facility] 6+ MO Branch Influenza Virus 2019-04-05 Completed [facility] y of Vaccine Quad .5 mL 00:00:00 [place] [facility] 6+ MO Branch Influenza Virus 2019-04-05 Completed [facility] y of Vaccine Quad .5 mL 00:00:00 [place] [facility] 6+ MO Branch Influenza Virus 2019-04-05 Completed [facility] y of Vaccine Quad .5 mL 00:00:00 [place] [facility] 6+ MO Branch Influenza Virus 2019-04-05 Completed [facility] y of Vaccine Quad .5 mL 00:00:00 [place] [facility] 6+ MO Branch Influenza Virus 2019-04-05 Completed [facility] y of Vaccine Quad .5 mL 00:00:00 [place] [facility] 6+ MO Branch Influenza Virus 2019-04-05 Completed [facility] y of Vaccine Quad .5 mL 00:00:00 [place] [facility] 6+ MO Branch Influenza Virus 2019-04-05 Completed [facility] y of Vaccine Quad .5 mL 00:00:00 [place] [facility] 6+ MO Branch Influenza Virus 2019-04-05 Completed [facility] y of Vaccine Quad .5 mL 00:00:00 [place] [facility] 6+ MO Branch Influenza Virus 2019-04-05 Completed [facility] y of Vaccine Quad .5 mL 00:00:00 [place] [facility] 6+ MO Branch Influenza Virus 2019-04-05 Completed [facility] y of Vaccine Quad .5 mL 00:00:00 [place] [facility] 6+ MO Branch Influenza Virus 2019-04-05 Completed [facility] y of Vaccine Quad .5 mL 00:00:00 [place] [facility] 6+ MO Branch Influenza Virus 2019-04-05 Completed [facility] y of Vaccine Quad .5 mL 00:00:00 [place] [facility] 6+ MO Branch Influenza Virus 2019-04-05 Completed [facility] y of Vaccine Quad .5 mL 00:00:00 [place] [facility] 6+ MO Branch Influenza Virus 2019-04-05 Completed [facility] y of Vaccine [facility] .5 mL 00:00:00 [place] [facility] 6+ MO Branch Influenza Virus 2019-04-05 Completed [facility] y of Vaccine Quad .5 mL 00:00:00 [place] [facility] 6+ MO Branch Influenza Virus 2019-04-05 Completed [facility] of Vaccine [facility] .5 mL 00:00:00 [place] [facility] 6[facility] MO Branch Influenza Virus 2019-04-05 Completed [facility] of Vaccine Quad .5 mL 00:00:00 [place] [facility] 6+ MO Branch Influenza Virus 2019-04-05 Completed [facility] of Vaccine [facility] .5 mL 00:00:00 [place] [facility] 6+ MO Branch Influenza Virus 2019-04-05 Completed [facility] of [facility]ine [facility] .5 mL 00:00:00 [place] [facility] 6+ MO Branch Influenza Virus 2019-04-05 Completed [facility] of [facility]ine [facility] .5 mL 00:00:00 [place] [facility] 6[facility] MO [facility] Influenza Virus 2019-04-05 Completed [facility] of Vaccine [facility] .5 mL 00:00:00 [place] [facility] 6[facility] MO [facility] Influenza Virus 2019-04-05 Completed [facility] of Vaccine Quad .5 mL 00:00:00 [place] [facility] 6[facility] MO [facility] Influenza Virus 2019-04-05 Completed [facility] of Vaccine [facility] .5 mL 00:00:00 [place] [facility] 6[facility] MO Branch Influenza Virus 2019-04-05 Completed [facility] of Vaccine [facility] .5 mL 00:00:00 [place] [facility] 6+ MO Branch Influenza Virus 2019-04-05 Completed [facility] of Vaccine [facility] .5 mL 00:00:00 [place] [facility] 6[facility] MO [facility] Influenza Virus 2019-04-05 Completed [facility] of Vaccine [facility] .5 mL 00:00:00 [place] [facility] 6[facility] MO Branch Influenza Virus 2019-04-05 Completed [facility] of Vaccine Quad .5 mL 00:00:00 [place] [facility] 6[facility] MO [facility] Influenza Virus 2019-04-05 Completed [facility] of Vaccine [facility] .5 mL 00:00:00 [place] [facility] 6[facility] MO Branch Influenza Virus 2019-04-05 Completed [facility] of Vaccine [facility] .5 mL 00:00:00 [place] [facility] 6[facility] Influenza Virus 2019-04-05 Completed [facility] of Vaccine [facility] .5 mL 00:00:00 [place] [facility] 6[facility] MO [facility] Influenza Virus 2019-04-05 Completed [facility] of Vaccine [facility] .5 mL 00:00:00 [place] [facility] 6[facility] MO [facility] Influenza Virus 2019-04-05 Completed [facility] of Vaccine [facility] .5 mL 00:00:00 [place] [facility] 6[facility] Influenza Virus 2019-04-05 Completed [facility] of [facility] .5 mL 00:00:00 [place] [facility] 6[facility] Influenza Virus 2019-04-05 Completed [facility] of Vaccine [facility] .5 mL 00:00:00 [place] [facility] 6[facility] Influenza Virus 2019-04-05 Completed [facility] of Vaccine [facility] .5 mL 00:00:00 [place] [facility] 6[facility] Influenza Virus 2019-04-05 Completed [facility] of Vaccine [facility] .5 mL 00:00:00 [place] [facility] 6[facility] Influenza Virus 2019-04-05 Completed [facility] of Vaccine [facility] .5 mL 00:00:00 [place] [facility] 6[facility] Influenza Virus 2019-04-05 Completed [facility] of Vacc[facility] .5 mL 00:00:00 [place] [facility] 6[facility] Influenza Virus 2019-04-05 Completed [facility] of Vaccine [facility] .5 mL 00:00:00 [place] [facility] 6[facility] Influenza Virus 2019-04-05 Completed [facility] Vacc[facility] .5 mL 00:00:00 [place] [facility] 6[facility] Influenza Virus 2019-04-05 Completed [facility] .5 mL 00:00:00 [place] [facility] 6[facility] Influenza Virus 2019-04-05 Completed [facility] Vaccine [facility] .5 mL 00:00:00 [place] [facility] 6[facility] Influenza Virus 2019-04-05 Completed [facility] Vacc[facility] .5 mL 00:00:00 [place] [facility] Influenza Virus 2019-04-05 Completed [facility]ine [facility] .5 mL 00:00:00 [place] [facility] Influenza Virus 2019-04-05 Completed [facility] of Vaccine [facility] .5 mL 00:00:00 [place] [facility] Influenza Virus 2019-04-05 Completed [facility] of [facility] .5 mL 00:00:00 [place] [facility] Influenza Virus 2019-04-05 Completed [facility] .5 mL 00:00:00 [place] [facility] Influenza Virus 2019-04-05 Completed [facility] .5 mL 00:00:00 [place] [facility] Influenza Virus 2019-04-05 Completed [facility] .5 mL 00:00:00 [place] [facility] Influenza Virus 2019-04-05 Completed [facility] .5 mL 00:00:00 [place] [facility] Influenza Virus 2019-04-05 Completed [facility] .5 mL 00:00:00 [place] [facility] Influenza Virus 2019-04-05 Completed [facility] .5 mL 00:00:00 [place] [facility] Influenza Virus 2019-04-05 Completed [facility] .5 mL 00:00:00 [place] [facility] Influenza Virus 2019-04-05 Completed [facility] .5 mL 00:00:00 [place] [facility] Influenza Virus 2019-04-05 Completed [facility] .5 mL 00:00:00 [place] [facility] TDAP (ADACEL) 2019-03-06 Completed [facility] V[facility]00 [facility] [facility] TDAP (ADACEL) 2019-03-06 Completed [facility] VACCINE 00:00:00 [facility] TDAP (ADACEL) 2019-03-06 Completed [facility] VACCINE 00:00:00 [facility] TDAP (ADACEL) 2019-03-06 Completed [facility] VACCINE 00:00:00 [facility] TDAP (ADACEL) 2019-03-06 Completed [facility] VACCINE 00:00:00 [facility] TDAP (ADACEL) 2019-03-06 Completed [facility] VACCINE 00:00:00 [facility] TDAP (ADACEL) 2019-03-06 Completed [facility] VACCINE 00:00:00 [facility] TDAP (ADACEL) 2019-03-06 Completed [facility] VACCINE 00:00:00 [facility] TDAP (ADACEL) 2019-03-06 Completed [facility] VACCINE 00:00:00 [facility] TDAP (ADACEL) 2019-03-06 Completed [facility] VACCINE 00:00:00 [facility] TDAP (ADACEL) 2019-03-06 Completed [facility] VACCINE 00:00:00 [facility] TDAP (ADACEL) 2019-03-06 Completed [facility] VACCINE 00:00:00 [facility] TDAP (ADACEL) 2019-03-06 Completed [facility] VACCINE 00:00:00 [facility] TDAP (ADACEL) 2019-03-06 Completed [facility] VACCINE 00:00:00 [facility] TDAP (ADACEL) 2019-03-06 Completed [facility] VACCINE 00:00:00 [facility] TDAP (ADACEL) 2019-03-06 Completed [facility] VACCINE 00:00:00 [facility] TDAP (ADACEL) 2019-03-06 Completed [facility] VACCINE 00:00:00 [facility] TDAP (ADACEL) 2019-03-06 Completed [facility] VACCINE 00:00:00 [facility] TDAP (ADACEL) 2019-03-06 Completed [facility] VACCINE 00:00:00 [facility] TDAP (ADACEL) 2019-03-06 Completed [facility] VACCINE 00:00:00 [facility] TDAP (ADACEL) 2019-03-06 Completed [facility] VACCINE 00:00:00 [facility] TDAP (ADACEL) 2019-03-06 Completed [facility] VACCINE 00:00:00 [facility] TDAP (ADACEL) 2019-03-06 Completed [facility] VACCINE 00:00:00 [facility] TDAP (ADACEL) 2019-03-06 Completed [facility] VACCINE 00:00:00 [facility] TDAP (ADACEL) 2019-03-06 Completed [facility] VACCINE 00:00:00 [facility] TDAP (ADACEL) 2019-03-06 Completed [facility] VACCINE 00:00:00 [facility] TDAP (ADACEL) 2019-03-06 Completed [facility] VACCINE 00:00:00 [facility] TDAP (ADACEL) 2019-03-06 Completed [facility] VACCINE 00:00:00 [facility] TDAP (ADACEL) 2019-03-06 Completed [facility] VACCINE 00:00:00 [facility] TDAP (ADACEL) 2019-03-06 Completed [facility] VACCINE 00:00:00 [facility] TDAP (ADACEL) 2019-03-06 Completed [facility] VACCINE 00:00:00 [facility] TDAP (ADACEL) 2019-03-06 Completed [facility] VACCINE 00:00:00 [facility] TDAP (ADACEL) 2019-03-06 Completed [facility] VACCINE 00:00:00 [facility] TDAP (ADACEL) 2019-03-06 Completed [facility] VACCINE 00:00:00 [facility] TDAP (ADACEL) 2019-03-06 Completed [facility] VACCINE 00:00:00 [facility] TDAP (ADACEL) 2019-03-06 Completed [facility] VACCINE 00:00:00 [facility] TDAP (ADACEL) 2019-03-06 Completed [facility] VACCINE 00:00:00 [facility] TDAP (ADACEL) 2019-03-06 Completed [facility] VACCINE 00:00:00 [facility] TDAP (ADACEL) 2019-03-06 Completed [facility] VACCINE 00:00:00 [facility] TDAP (ADACEL) 2019-03-06 Completed [facility] VACCINE 00:00:00 [facility] TDAP (ADACEL) 2019-03-06 Completed [facility] VACCINE 00:00:00 [facility] TDAP (ADACEL) 2019-03-06 Completed [facility] VACCINE 00:00:00 [facility] TDAP (ADACEL) 2019-03-06 Completed [facility] VACCINE 00:00:00 [facility] TDAP (ADACEL) 2019-03-06 Completed [facility] VACCINE 00:00:00 [facility] TDAP (ADACEL) 2019-03-06 Completed [facility] VACCINE 00:00:00 [facility] TDAP (ADACEL) 2019-03-06 Completed [facility] VACCINE 00:00:00 [facility] TDAP (ADACEL) 2019-03-06 Completed [facility] VACCINE 00:00:00 [facility] TDAP (ADACEL) 2019-03-06 Completed [facility] VACCINE 00:00:00 [facility] TDAP (ADACEL) 2019-03-06 Completed [facility] VACCINE 00:00:00 [facility] TDAP (ADACEL) 2019-03-06 Completed [facility] VACCINE 00:00:00 [facility] TDAP (ADACEL) 2019-03-06 Completed [facility] VACCINE 00:00:00 [facility] TDAP (ADACEL) 2019-03-06 Completed [facility] VACCINE 00:00:00 [facility] TDAP (ADACEL) 2019-03-06 Completed [facility] VACCINE 00:00:00 [facility] TDAP (ADACEL) 2019-03-06 Completed [facility] VACCINE 00:00:00 [facility] TDAP (ADACEL) 2019-03-06 Completed [facility] VACCINE 00:00:00 [facility] TDAP (ADACEL) 2019-03-06 Completed [facility] VACCINE 00:00:00 [facility] TDAP (ADACEL) 2019-03-06 Completed [facility] VACCINE 00:00:00 [facility] TDAP (ADACEL) 2019-03-06 Completed [facility] VACCINE 00:00:00 [facility] TDAP (ADACEL) 2019-03-06 Completed [facility] VACCINE 00:00:00 [facility] TDAP (ADACEL) 2019-03-06 Completed [facility] VACCINE 00:00:00 [facility] TDAP (ADACEL) 2019-03-06 Completed [facility] VACCINE 00:00:00 [facility] TDAP (ADACEL) 2019-03-06 Completed [facility] VACCINE 00:00:00 [facility] TDAP (ADACEL) 2019-03-06 Completed [facility] VACCINE 00:00:00 [facility] TDAP (ADACEL) 2019-03-06 Completed [facility] VACCINE 00:00:00 [facility] TDAP (ADACEL) 2019-03-06 Completed [facility] VACCINE 00:00:00 [facility] TDAP (ADACEL) 2019-03-06 Completed [facility] VACCINE 00:00:00 [facility] TDAP (ADACEL) 2019-03-06 Completed [facility] VACCINE 00:00:00 [facility] TDAP (ADACEL) 2019-03-06 Completed [facility] VACCINE 00:00:00 [facility] TDAP (ADACEL) 2019-03-06 Completed [facility] VACCINE 00:00:00 [facility] TDAP (ADACEL) 2019-03-06 Completed [facility] VACCINE 00:00:00 [facility] TDAP (ADACEL) 2019-03-06 Completed [facility] VACCINE 00:00:00 [facility] TDAP (ADACEL) 2019-03-06 Completed [facility] VACCINE 00:00:00 [facility] TDAP (ADACEL) 2019-03-06 Completed [facility] VACCINE 00:00:00 [facility] TDAP (ADACEL) 2019-03-06 Completed [facility] VACCINE 00:00:00 [facility] HPV9 2016-05-17 Completed [facility] 00:00:00 [facility] HPV9 2016-05-17 Completed [facility] 00:00:00 [facility] HPV9 2016-05-17 Completed [facility] 00:00:00 [facility] HPV9 2016-05-17 Completed [facility] 00:00:00 [facility] HPV9 2016-05-17 Completed [facility] 00:00:00 [facility] HPV9 2016-05-17 Completed [facility] 00:00:00 [facility] HPV9 2016-05-17 Completed [facility] 00:00:00 [facility] HPV9 2016-05-17 Completed [facility] 00:00:00 [facility] HPV9 2016-05-17 Completed [facility] 00:00:00 [facility] HPV9 2016-05-17 Completed [facility] 00:00:00 [facility] HPV9 2016-05-17 Completed [facility] 00:00:00 [facility] HPV9 2016-05-17 Completed [facility] 00:00:00 [facility] HPV9 2016-05-17 Completed [facility] 00:00:00 [facility] HPV9 2016-05-17 Completed [facility] 00:00:00 [facility] HPV9 2016-05-17 Completed [facility] 00:00:00 [facility] HPV9 2016-05-17 Completed [facility] 00:00:00 [facility] HPV9 2016-05-17 Completed [facility] 00:00:00 [facility] HPV9 2016-05-17 Completed [facility] 00:00:00 [facility] HPV9 2016-05-17 Completed [facility] 00:00:00 [facility] HPV9 2016-05-17 Completed [facility] 00:00:00 [facility] HPV9 2016-05-17 Completed [facility] 00:00:00 [facility] HPV9 2016-05-17 Completed [facility] 00:00:00 [facility] HPV9 2016-05-17 Completed [facility] 00:00:00 [facility] HPV9 2016-05-17 Completed [facility] 00:00:00 [facility] HPV9 2016-05-17 Completed [facility] 00:00:00 [facility] HPV9 2016-05-17 Completed [facility] 00:00:00 [facility] HPV9 2016-05-17 Completed [facility] 00:00:00 [facility] HPV9 2016-05-17 Completed [facility] 00:00:00 [facility] HPV9 2016-05-17 Completed [facility] 00:00:00 [facility] HPV9 2016-05-17 Completed [facility] 00:00:00 [facility] HPV9 2016-05-17 Completed [facility] 00:00:00 [facility] HPV9 2016-05-17 Completed [facility] 00:00:00 [facility] HPV9 2016-05-17 Completed [facility] 00:00:00 [facility] HPV9 2016-05-17 Completed [facility] 00:00:00 [facility] HPV9 2016-05-17 Completed [facility] 00:00:00 [facility] HPV9 2016-05-17 Completed [facility] 00:00:00 [facility] HPV9 2016-05-17 Completed [facility] 00:00:00 [facility] HPV9 2016-05-17 Completed [facility] 00:00:00 [facility] HPV9 2016-05-17 Completed [facility] 00:00:00 [facility] HPV9 2016-05-17 Completed [facility] 00:00:00 [facility] HPV9 2016-05-17 Completed [facility] 00:00:00 [facility] HPV9 2016-05-17 Completed [facility] 00:00:00 [facility] HPV9 2016-05-17 Completed [facility] 00:00:00 [facility] HPV9 2016-05-17 Completed [facility] 00:00:00 [facility] HPV9 2016-05-17 Completed [facility] 00:00:00 [facility] HPV9 2016-05-17 Completed [facility] 00:00:00 [facility] HPV9 2016-05-17 Completed [facility] 00:00:00 [facility] HPV9 2016-05-17 Completed [facility] 00:00:00 [facility] HPV9 2016-05-17 Completed [facility] 00:00:00 [facility] HPV9 2016-05-17 Completed [facility] 00:00:00 [facility] HPV9 2016-05-17 Completed [facility] 00:00:00 [facility] HPV9 2016-05-17 Completed [facility] 00:00:00 [facility] HPV9 2016-05-17 Completed [facility] 00:00:00 [facility] HPV9 2016-05-17 Completed [facility] 00:00:00 [facility] HPV9 2016-05-17 Completed [facility] 00:00:00 [facility] HPV9 2016-05-17 Completed [facility] 00:00:00 [facility] HPV9 2016-05-17 Completed [facility] 00:00:00 [facility] HPV9 2016-05-17 Completed [facility] 00:00:00 [facility] HPV9 2016-05-17 Completed [facility] 00:00:00 [facility] HPV9 2016-05-17 Completed [facility] 00:00:00 [facility] HPV9 2016-05-17 Completed [facility] 00:00:00 [facility] HPV9 2016-05-17 Completed [facility] 00:00:00 [facility] HPV9 2016-05-17 Completed [facility] 00:00:00 [facility] HPV9 2016-05-17 Completed [facility] 00:00:00 [facility] HPV9 2016-05-17 Completed [facility] 00:00:00 [facility] HPV9 2016-05-17 Completed [facility] 00:00:00 [facility] HPV9 2016-05-17 Completed [facility] 00:00:00 [facility] HPV9 2016-05-17 Completed [facility] 00:00:00 [facility] HPV9 2016-05-17 Completed [facility] 00:00:00 [facility] HPV9 2016-05-17 Completed [facility] 00:00:00 [facility] HPV9 2016-05-17 Completed [facility] 00:00:00 [facility] HPV9 2016-05-17 Completed [facility] 00:00:00 [facility] HPV9 2016-05-17 Completed [facility] 00:00:00 [facility] HPV9 2016-05-17 Completed [facility] 00:00:00 [facility] HPV9 2016-05-17 Completed [facility] 00:00:00 [facility] HPV9 2016-05-17 Completed [facility] 00:00:00 [facility] HPV9 2016-05-17 Completed [facility] 00:00:00 [facility] HPV9 2016-05-17 Completed [facility] 00:00:00 [facility] HPV9 2016-05-17 Completed [facility] 00:00:00 [facility] HPV9 2016-05-17 Completed [facility] 00:00:00 [facility] HPV9 2016-05-17 Completed [facility] 00:00:00 [facility] HPV9 2016-05-17 Completed [facility] 00:00:00 [facility] HPV9 2016-05-17 Completed [facility] 00:00:00 [facility] HPV9 2016-05-17 Completed [facility] 00:00:00 [facility] HPV9 2016-05-17 Completed [facility] 00:00:00 [facility] HPV9 2016-05-17 Completed [facility] 00:00:00 [facility] HPV9 2016-05-17 Completed [facility] 00:00:00 [facility] HPV9 2016-05-17 Completed [facility] 00:00:00 [facility] HPV9 2016-05-17 Completed [facility] 00:00:00 [facility] Influenza Virus 2016-04-02 Completed Universit y [facility] Vaccine 00:00:00 [facility] Influenza Virus 2016-04-02 Completed [facility] y of Vaccine 00:00:00 [facility] Influenza Virus 2016-04-02 Completed [facility] y of Vaccine 00:00:00 [facility] Influenza Virus 2016-04-02 Completed [facility] y of Vaccine 00:00:00 [facility] Influenza Virus 2016-04-02 Completed [facility] y [facility] Vaccine 00:00:00 [facility] Influenza Virus 2016-04-02 Completed [facility] y of Vaccine 00:00:00 [facility] Influenza Virus 2016-04-02 Completed [facility] y of Vaccine 00:00:00 [facility] Influenza Virus 2016-04-02 Completed [facility] y of Vaccine 00:00:00 [facility] Influenza Virus 2016-04-02 Completed [facility] y of Vaccine 00:00:00 [facility] Influenza Virus 2016-04-02 Completed [facility] y of Vaccine 00:00:00 [facility] Influenza Virus 2016-04-02 Completed [facility] y of Vaccine 00:00:00 [facility] Influenza Virus 2016-04-02 Completed [facility] y of Vaccine 00:00:00 [facility] Influenza Virus 2016-04-02 Completed [facility] y of Vaccine 00:00:00 [facility] Influenza Virus 2016-04-02 Completed [facility] y of Vaccine 00:00:00 [facility] Influenza Virus 2016-04-02 Completed [facility] y of Vaccine 00:00:00 [facility] Influenza Virus 2016-04-02 Completed [facility] y of Vaccine 00:00:00 [facility] Influenza Virus 2016-04-02 Completed [facility] y of Vaccine 00:00:00 [facility] Influenza Virus 2016-04-02 Completed [facility] y of Vaccine 00:00:00 [facility] Influenza Virus 2016-04-02 Completed [facility] y of Vaccine 00:00:00 [facility] Influenza Virus 2016-04-02 Completed [facility] Vaccine 00:00:00 [facility] Influenza Virus 2016-04-02 Completed [facility] y of Vaccine 00:00:00 [facility] Influenza Virus 2016-04-02 Completed [facility] y of Vaccine 00:00:00 [facility] Influenza Virus 2016-04-02 Completed [facility] y of Vaccine 00:00:00 [facility] Influenza Virus 2016-04-02 Completed [facility] y of Vaccine 00:00:00 [facility] Influenza Virus 2016-04-02 Completed [facility] y [facility] Vaccine 00:00:00 [facility] Influenza Virus 2016-04-02 Completed [facility] y of Vaccine 00:00:00 [facility] Influenza Virus 2016-04-02 Completed [facility] y of Vaccine 00:00:00 [facility] Influenza Virus 2016-04-02 Completed [facility] y of Vaccine 00:00:00 [facility] Influenza Virus 2016-04-02 Completed [facility] y of Vaccine 00:00:00 [facility] Influenza Virus 2016-04-02 Completed [facility] y of Vaccine 00:00:00 [facility] Influenza Virus 2016-04-02 Completed [facility] y of Vaccine 00:00:00 [facility] Influenza Virus 2016-04-02 Completed [facility] y of Vaccine 00:00:00 [facility] Influenza Virus 2016-04-02 Completed [facility] y of Vaccine 00:00:00 [facility] Influenza Virus 2016-04-02 Completed [facility] of Vaccine 00:00:00 [facility] Influenza Virus 2016-04-02 Completed [facility] y of Vaccine 00:00:00 [facility] Influenza Virus 2016-04-02 Completed [facility] y of Vaccine 00:00:00 [facility] Influenza Virus 2016-04-02 Completed [facility] y of Vaccine 00:00:00 [facility] Influenza Virus 2016-04-02 Completed [facility] y of Vaccine 00:00:00 [facility] Influenza Virus 2016-04-02 Completed [facility] y of Vaccine 00:00:00 [facility] Influenza Virus 2016-04-02 Completed [facility] y of Vaccine 00:00:00 [facility] Influenza Virus 2016-04-02 Completed [facility] Vaccine 00:00:00 [facility] Influenza Virus 2016-04-02 Completed [facility] y of Vaccine 00:00:00 [facility] Influenza Virus 2016-04-02 Completed [facility] y of Vaccine 00:00:00 [facility] Influenza Virus 2016-04-02 Completed [facility] y of Vaccine 00:00:00 [facility] Influenza Virus 2016-04-02 Completed [facility] y of Vaccine 00:00:00 [facility] Influenza Virus 2016-04-02 Completed [facility] y of Vaccine 00:00:00 [facility] Influenza Virus 2016-04-02 Completed [facility] y of Vaccine 00:00:00 [facility] Influenza Virus 2016-04-02 Completed [facility] of Vaccine 00:00:00 [facility] Influenza Virus 2016-04-02 Completed [facility] y of Vaccine 00:00:00 [facility] Influenza Virus 2016-04-02 Completed [facility] y of Vaccine 00:00:00 [facility] Influenza Virus 2016-04-02 Completed [facility] y of Vaccine 00:00:00 [facility] Influenza Virus 2016-04-02 Completed [facility] y of Vaccine 00:00:00 [facility] Influenza Virus 2016-04-02 Completed [facility] of Vaccine 00:00:00 [facility] Influenza Virus 2016-04-02 Completed [facility] y of Vaccine 00:00:00 [facility] Influenza Virus 2016-04-02 Completed [facility] y of Vaccine 00:00:00 [facility] Influenza Virus 2016-04-02 Completed [facility] of Vaccine 00:00:00 [facility] Influenza Virus 2016-04-02 Completed [facility] y of Vaccine 00:00:00 [facility] Influenza Virus 2016-04-02 Completed [facility] y of Vaccine 00:00:00 [facility] Influenza Virus 2016-04-02 Completed [facility] y of Vaccine 00:00:00 [facility] Influenza Virus 2016-04-02 Completed [facility] y of Vaccine 00:00:00 [facility] Influenza Virus 2016-04-02 Completed [facility] y of Vaccine 00:00:00 [facility] Influenza Virus 2016-04-02 Completed [facility] y of Vaccine 00:00:00 [facility] Influenza Virus 2016-04-02 Completed [facility] of Vaccine 00:00:00 [facility] Influenza Virus 2016-04-02 Completed [facility] y of Vaccine 00:00:00 [facility] Influenza Virus 2016-04-02 Completed [facility] of Vaccine 00:00:00 [facility] Influenza Virus 2016-04-02 Completed [facility] y of Vaccine 00:00:00 [facility] Influenza Virus 2016-04-02 Completed [facility] y of Vaccine 00:00:00 [facility] Influenza Virus 2016-04-02 Completed [facility] y of Vaccine 00:00:00 [facility] Influenza Virus 2016-04-02 Completed [facility] y of Vaccine 00:00:00 [facility] Influenza Virus 2016-04-02 Completed [facility] y of Vaccine 00:00:00 [facility] Influenza Virus 2016-04-02 Completed [facility] y of Vaccine 00:00:00 [facility] Influenza Virus 2016-04-02 Completed [facility] y of Vaccine 00:00:00 [facility] Influenza Virus 2016-04-02 Completed [facility] y of Vaccine 00:00:00 [facility] Influenza Virus 2016-04-02 Completed [facility] of Vaccine 00:00:00 [facility] Influenza Virus 2016-04-02 Completed [facility] y of Vaccine 00:00:00 [facility] Influenza Virus 2016-04-02 Completed [facility] y of Vaccine 00:00:00 [facility] Influenza Virus 2016-04-02 Completed [facility] y of Vaccine 00:00:00 [facility] Influenza Virus 2016-04-02 Completed [facility] y of Vaccine 00:00:00 [facility] Influenza Virus 2016-04-02 Completed [facility] of Vaccine 00:00:00 [facility] Influenza Virus 2016-04-02 Completed [facility] y of Vaccine 00:00:00 [facility] Influenza Virus 2016-04-02 Completed [facility] of Vaccine 00:00:00 [facility] Influenza Virus 2016-04-02 Completed [facility] y of Vaccine 00:00:00 [facility] Influenza Virus 2016-04-02 Completed [facility] y of Vaccine 00:00:00 [facility] Influenza Virus 2016-04-02 Completed [facility] Vaccine 00:00:00 [facility] Influenza Virus 2016-04-02 Completed [facility] Vaccine 00:00:00 [facility] Influenza Virus 2016-04-02 Completed [facility] y of Vaccine 00:00:00 [facility] Influenza Virus 2016-04-02 Completed [facility] Vaccine 00:00:00 [facility] Influenza Virus 2016-04-02 Completed [facility] Vaccine 00:00:00 [facility] Influenza Virus 2016-04-02 Completed [facility] Vaccine 00:00:00 [facility] HPV9 2016-01-13 Completed [facility] 00:00:00 [facility] HPV9 2016-01-13 Completed [facility] 00:00:00 [facility] HPV9 2016-01-13 Completed [facility] 00:00:00 [facility] HPV9 2016-01-13 Completed [facility] 00:00:00 [facility] HPV9 2016-01-13 Completed [facility] 00:00:00 [facility] HPV9 2016-01-13 Completed University of 00:00:00 [facility] HPV9 2016-01-13 Completed [facility] 00:00:00 [facility] HPV9 2016-01-13 Completed [facility] 00:00:00 [facility] HPV9 2016-01-13 Completed [facility] 00:00:00 [facility] HPV9 2016-01-13 Completed [facility] 00:00:00 [facility] HPV9 2016-01-13 Completed [facility] 00:00:00 [facility] HPV9 2016-01-13 Completed [facility] 00:00:00 [facility] HPV9 2016-01-13 Completed [facility] 00:00:00 [facility] HPV9 2016-01-13 Completed [facility] 00:00:00 [facility] HPV9 2016-01-13 Completed [facility] of 00:00:00 [facility] HPV9 2016-01-13 Completed [facility] 00:00:00 [facility] HPV9 2016-01-13 Completed [facility] 00:00:00 [facility] HPV9 2016-01-13 Completed [facility] 00:00:00 [facility] HPV9 2016-01-13 Completed [facility] 00:00:00 [facility] HPV9 2016-01-13 Completed [facility] 00:00:00 [facility] HPV9 2016-01-13 Completed [facility] 00:00:00 [facility] HPV9 2016-01-13 Completed [facility] 00:00:00 [facility] HPV9 2016-01-13 Completed [facility] 00:00:00 [facility] HPV9 2016-01-13 Completed [facility] 00:00:00 [facility] HPV9 2016-01-13 Completed [facility] 00:00:00 [facility] HPV9 2016-01-13 Completed [facility] 00:00:00 [facility] HPV9 2016-01-13 Completed [facility] 00:00:00 [facility] HPV9 2016-01-13 Completed [facility] 00:00:00 [facility] HPV9 2016-01-13 Completed [facility] 00:00:00 [facility] HPV9 2016-01-13 Completed [facility] 00:00:00 [facility] HPV9 2016-01-13 Completed [facility] 00:00:00 [facility] HPV9 2016-01-13 Completed [facility] 00:00:00 [facility] HPV9 2016-01-13 Completed [facility] 00:00:00 [facility] HPV9 2016-01-13 Completed [facility] 00:00:00 [facility] HPV9 2016-01-13 Completed [facility] 00:00:00 [facility] HPV9 2016-01-13 Completed [facility] 00:00:00 [facility] HPV9 2016-01-13 Completed [facility] 00:00:00 [facility] HPV9 2016-01-13 Completed [facility] 00:00:00 [facility] HPV9 2016-01-13 Completed [facility] 00:00:00 [facility] HPV9 2016-01-13 Completed [facility] 00:00:00 [facility] HPV9 2016-01-13 Completed [facility] 00:00:00 [facility] HPV9 2016-01-13 Completed [facility] 00:00:00 [facility] HPV9 2016-01-13 Completed [facility] 00:00:00 [facility] HPV9 2016-01-13 Completed [facility] 00:00:00 [facility] HPV9 2016-01-13 Completed [facility] 00:00:00 [facility] HPV9 2016-01-13 Completed [facility] 00:00:00 [facility] HPV9 2016-01-13 Completed [facility] 00:00:00 [facility] HPV9 2016-01-13 Completed [facility] 00:00:00 [facility] HPV9 2016-01-13 Completed [facility] 00:00:00 [facility] HPV9 2016-01-13 Completed [facility] 00:00:00 [facility] HPV9 2016-01-13 Completed [facility] 00:00:00 [facility] HPV9 2016-01-13 Completed [facility] 00:00:00 [facility] HPV9 2016-01-13 Completed [facility] 00:00:00 [facility] HPV9 2016-01-13 Completed [facility] 00:00:00 [facility] HPV9 2016-01-13 Completed [facility] 00:00:00 [facility] HPV9 2016-01-13 Completed [facility] 00:00:00 [facility] HPV9 2016-01-13 Completed [facility] 00:00:00 [facility] HPV9 2016-01-13 Completed [facility] 00:00:00 [facility] HPV9 2016-01-13 Completed [facility] 00:00:00 [facility] HPV9 2016-01-13 Completed [facility] 00:00:00 [facility] HPV9 2016-01-13 Completed [facility] 00:00:00 [facility] HPV9 2016-01-13 Completed [facility] 00:00:00 [facility] HPV9 2016-01-13 Completed [facility] 00:00:00 [facility] HPV9 2016-01-13 Completed [facility] 00:00:00 [facility] HPV9 2016-01-13 Completed [facility] 00:00:00 [facility] HPV9 2016-01-13 Completed [facility] 00:00:00 [facility] HPV9 2016-01-13 Completed [facility] 00:00:00 [facility] HPV9 2016-01-13 Completed [facility] 00:00:00 [facility] HPV9 2016-01-13 Completed [facility] 00:00:00 [facility] HPV9 2016-01-13 Completed [facility] 00:00:00 [facility] HPV9 2016-01-13 Completed [facility] 00:00:00 [facility] HPV9 2016-01-13 Completed [facility] 00:00:00 [facility] HPV9 2016-01-13 Completed [facility] 00:00:00 [facility] HPV9 2016-01-13 Completed [facility] 00:00:00 [facility] HPV9 2016-01-13 Completed [facility] 00:00:00 [facility] HPV9 2016-01-13 Completed [facility] 00:00:00 [facility] HPV9 2016-01-13 Completed [facility] 00:00:00 [facility] HPV9 2016-01-13 Completed [facility] 00:00:00 [facility] HPV9 2016-01-13 Completed [facility] 00:00:00 [facility] HPV9 2016-01-13 Completed [facility] 00:00:00 [facility] HPV9 2016-01-13 Completed [facility] 00:00:00 [facility] HPV9 2016-01-13 Completed [facility] 00:00:00 [facility] HPV9 2016-01-13 Completed [facility] 00:00:00 [facility] HPV9 2016-01-13 Completed [facility] 00:00:00 [facility] HPV9 2016-01-13 Completed [facility] 00:00:00 [facility] HPV9 2016-01-13 Completed [facility] 00:00:00 [facility] HPV9 2016-01-13 Completed [facility] 00:00:00 [facility] HPV9 2016-01-13 Completed [facility] 00:00:00 [facility] HPV9 2016-01-13 Completed [facility] 00:00:00 [facility] HPV9 2015-11-13 Completed [facility] 00:00:00 [facility] HPV9 2015-11-13 Completed [facility] 00:00:00 [facility] HPV9 2015-11-13 Completed [facility] 00:00:00 [facility] HPV9 2015-11-13 Completed [facility] 00:00:00 [facility] HPV9 2015-11-13 Completed [facility] 00:00:00 [facility] HPV9 2015-11-13 Completed [facility] 00:00:00 [facility] HPV9 2015-11-13 Completed [facility] 00:00:00 [facility] HPV9 2015-11-13 Completed [facility] 00:00:00 [facility] HPV9 2015-11-13 Completed [facility] 00:00:00 [facility] HPV9 2015-11-13 Completed [facility] 00:00:00 [facility] HPV9 2015-11-13 Completed [facility] 00:00:00 [facility] HPV9 2015-11-13 Completed [facility] 00:00:00 [facility] HPV9 2015-11-13 Completed [facility] 00:00:00 [facility] HPV9 2015-11-13 Completed [facility] 00:00:00 [facility] HPV9 2015-11-13 Completed [facility] 00:00:00 [facility] HPV9 2015-11-13 Completed [facility] 00:00:00 [facility] HPV9 2015-11-13 Completed [facility] 00:00:00 [facility] HPV9 2015-11-13 Completed [facility] 00:00:00 [facility] HPV9 2015-11-13 Completed [facility] 00:00:00 [facility] HPV9 2015-11-13 Completed [facility] 00:00:00 [facility] HPV9 2015-11-13 Completed [facility] 00:00:00 [facility] HPV9 2015-11-13 Completed [facility] 00:00:00 [facility] HPV9 2015-11-13 Completed [facility] 00:00:00 [facility] HPV9 2015-11-13 Completed [facility] 00:00:00 [facility] HPV9 2015-11-13 Completed [facility] 00:00:00 [facility] HPV9 2015-11-13 Completed [facility] 00:00:00 [facility] HPV9 2015-11-13 Completed [facility] 00:00:00 [facility] HPV9 2015-11-13 Completed [facility] 00:00:00 [facility] HPV9 2015-11-13 Completed [facility] 00:00:00 [facility] HPV9 2015-11-13 Completed [facility] 00:00:00 [facility] HPV9 2015-11-13 Completed [facility] 00:00:00 [facility] HPV9 2015-11-13 Completed [facility] 00:00:00 [facility] HPV9 2015-11-13 Completed [facility] 00:00:00 [facility] HPV9 2015-11-13 Completed [facility] 00:00:00 [facility] HPV9 2015-11-13 Completed [facility] 00:00:00 [facility] HPV9 2015-11-13 Completed [facility] 00:00:00 [facility] HPV9 2015-11-13 Completed [facility] 00:00:00 [facility] HPV9 2015-11-13 Completed [facility] 00:00:00 [facility] HPV9 2015-11-13 Completed [facility] 00:00:00 [facility] HPV9 2015-11-13 Completed [facility] 00:00:00 [facility] HPV9 2015-11-13 Completed [facility] 00:00:00 [facility] HPV9 2015-11-13 Completed [facility] 00:00:00 [facility] HPV9 2015-11-13 Completed [facility] 00:00:00 [facility] HPV9 2015-11-13 Completed [facility] 00:00:00 [facility] HPV9 2015-11-13 Completed [facility] 00:00:00 [facility] HPV9 2015-11-13 Completed [facility] 00:00:00 [facility] HPV9 2015-11-13 Completed [facility] 00:00:00 [facility] HPV9 2015-11-13 Completed [facility] 00:00:00 [facility] HPV9 2015-11-13 Completed [facility] 00:00:00 [facility] HPV9 2015-11-13 Completed [facility] 00:00:00 [facility] HPV9 2015-11-13 Completed [facility] 00:00:00 [facility] HPV9 2015-11-13 Completed [facility] 00:00:00 [facility] HPV9 2015-11-13 Completed [facility] 00:00:00 [facility] HPV9 2015-11-13 Completed [facility] 00:00:00 [facility] HPV9 2015-11-13 Completed [facility] 00:00:00 [facility] HPV9 2015-11-13 Completed [facility] 00:00:00 [facility] HPV9 2015-11-13 Completed [facility] 00:00:00 [facility] HPV9 2015-11-13 Completed [facility] 00:00:00 [facility] HPV9 2015-11-13 Completed [facility] 00:00:00 [facility] HPV9 2015-11-13 Completed [facility] 00:00:00 [facility] HPV9 2015-11-13 Completed [facility] 00:00:00 [facility] HPV9 2015-11-13 Completed [facility] 00:00:00 [facility] HPV9 2015-11-13 Completed [facility] 00:00:00 [facility] HPV9 2015-11-13 Completed [facility] 00:00:00 [facility] HPV9 2015-11-13 Completed [facility] of 00:00:00 [facility] HPV9 2015-11-13 Completed [facility] 00:00:00 [facility] HPV9 2015-11-13 Completed [facility] 00:00:00 [facility] HPV9 2015-11-13 Completed [facility] 00:00:00 [facility] HPV9 2015-11-13 Completed [facility] 00:00:00 [facility] HPV9 2015-11-13 Completed [facility] 00:00:00 [facility] HPV9 2015-11-13 Completed [facility] 00:00:00 [facility] HPV9 2015-11-13 Completed [facility] 00:00:00 [facility] HPV9 2015-11-13 Completed [facility] 00:00:00 [facility] HPV9 2015-11-13 Completed [facility] 00:00:00 [facility] HPV9 2015-11-13 Completed [facility] 00:00:00 [facility] HPV9 2015-11-13 Completed [facility] 00:00:00 [facility] HPV9 2015-11-13 Completed [facility] 00:00:00 [facility] HPV9 2015-11-13 Completed [facility] 00:00:00 [facility] HPV9 2015-11-13 Completed [facility] 00:00:00 [facility] HPV9 2015-11-13 Completed [facility] 00:00:00 [facility] HPV9 2015-11-13 Completed [facility] 00:00:00 [facility] HPV9 2015-11-13 Completed [facility] of 00:00:00 [facility] HPV9 2015-11-13 Completed [facility] 00:00:00 [facility] 2015-11-13 Completed [facility] of 00:00:00 [facility] HPV9 2015-11-13 Completed [facility] 00:00:00 [facility] 2015-11-13 Completed [facility] 00:00:00 [facility] 2015-11-13 Completed [facility] 00:00:00 [facility] 2015-11-13 Completed [facility] 00:00:00 [facility] 2015-11-13 Completed [facility] 00:00:00 [facility] Vital Signs Vital Name Observation Time Observation Value Comments Source Systolic blood 2021-03-16 108 mm[Hg] University of pressure 23:18:00 [facility] Diastolic blood 2021-03-16 78 mm[Hg] University o f pressure 23:18:00 [facility] Heart rate 2021-03-16 86 /min [facility] of 23:13:00 [facility] Respiratory rate 2021-03-16 20 /min [facility] of 23:13:00 [facility] Body height 2021-03-16 167.6 cm University of 23:13:00 [facility] Body weight 2021-03-16 84.369 kg University of 23:13:00 [facility] BMI 2021-03-16 30.02 kg/m2 University of 23:13:00 [facility] Oxygen saturation 2021-03-16 96 /min [facility] in Arterial blood 23:13:00 [facility] Pulse oximetry [place] Systolic blood 2021-03-02 98 mm[Hg] [facility] of pressure 16:54:00 [facility] Diastolic blood 2021-03-02 68 mm[Hg] University o f pressure 16:54:00 [facility] Heart rate 2021-03-02 78 /min [facility] of 16:54:00 [facility] Body temperature 2021-03-02 37.11 [place] University of 16:54:00 [facility] Body height 2021-03-02 167.6 cm University of 16:54:00 [facility] Body weight 2021-03-02 84.369 kg University of 16:54:00 [facility] BMI 2021-03-02 30.02 kg/m2 University of 16:54:00 [facility] Oxygen saturation 2021-03-02 97 /min [facility] in Arterial blood 16:54:00 [facility] P[facility] Systolic blood 2021-02-27 101 mm[Hg] [facility] of pressure 19:50:00 [facility] Diastolic blood 2021-02-27 67 mm[Hg] [facility] o f pressure 19:50:00 [facility] Heart rate 2021-02-27 83 /min [facility] 19:50:00 [facility] Body temperature 2021-02-27 37 Ruthann [facility] 19:50:00 [facility] Respiratory rate 2021-02-27 19 /min [facility] of 19:50:00 [facility] Body height 2021-02-27 167.6 cm University of 19:50:00 [facility] Body weight 2021-02-27 88.451 kg University of 19:50:00 [facility] BMI 2021-02-27 31.47 kg/m2 University of 19:50:00 [facility] Oxygen saturation 2021-02-27 98 /min [facility] of in Arterial blood 19:50:00 [facility] oli by Pulse oximetry Branch Systolic blood 2021-02-18 104 mm[Hg] [facility] of pressure 19:35:00 [facility] Diastolic blood 2021-02-18 65 mm[Hg] University o f pressure 19:35:00 [facility] Heart rate 2021-02-18 72 /min [facility] of 19:35:00 [facility] Body temperature 2021-02-18 36.06 Ruthann [facility] 19:35:00 [facility] Respiratory rate 2021-02-18 18 /min [facility] of 19:35:00 [facility] Body height 2021-02-18 167.6 cm University of 19:35:00 [facility] Body weight 2021-02-18 87.091 kg University of 19:35:00 [facility] BMI 2021-02-18 30.99 kg/m2 University of 19:35:00 [facility] Oxygen saturation 2021-02-18 98 /min [facility] in Arterial blood 19:35:00 [facility] Systolic blood 2021-01-14 95 mm[Hg] [facility] of pressure 14:12:00 [facility] Diastolic blood 2021-01-14 65 mm[Hg] University o f pressure 14:12:00 [facility] Heart rate 2021-01-14 71 /min [facility] of 14:12:00 [facility] Body temperature 2021-01-14 36.94 Ruthann [facility] 14:12:00 [facility] Respiratory rate 2021-01-14 18 /min [facility] of 14:12:00 [facility] Body height 2021-01-14 167.6 cm University of 14:12:00 [facility] Body weight 2021-01-14 88.451 kg University of 14:12:00 [facility] BMI 2021-01-14 31.47 kg/m2 University of 14:12:00 [facility] Systolic blood 2021-01-06 106 mm[Hg] [facility] of pressure 16:23:00 [facility] Diastolic blood 2021-01-06 70 mm[Hg] University o f pressure 16:23:00 [facility] Heart rate 2021-01-06 95 /min [facility] of 16:23:00 [facility] Body temperature 2021-01-06 37.06 Ruthann [facility] 16:23:00 [facility] Respiratory rate 2021-01-06 16 /min [facility] of 16:23:00 [facility] Body height 2021-01-06 167.6 cm University of 16:23:00 [facility] Body weight 2021-01-06 90.719 kg University of 16:23:00 [facility] BMI 2021-01-06 32.28 kg/m2 University of 16:23:00 [facility] Systolic blood 2020-12-30 114 mm[Hg] [facility] of pressure 20:19:00 [facility] Diastolic blood 2020-12-30 76 mm[Hg] University o f pressure 20:19:00 [facility] Heart rate 2020-12-30 93 /min [facility] of 20:19:00 [facility] Body temperature 2020-12-30 36.78 Ruthann [facility] 20:19:00 [facility] Respiratory rate 2020-12-30 18 /min [facility] of 20:19:00 [facility] Body height 2020-12-30 167.6 cm University of 20:19:00 [facility] Body weight 2020-12-30 91.627 kg University of 20:19:00 [facility] BMI 2020-12-30 32.60 kg/m2 University of 20:19:00 [facility] Systolic blood 2020-12-15 112 mm[Hg] [facility] of pressure 14:12:00 [facility] Diastolic blood 2020-12-15 79 mm[Hg] [facility] o f pressure 14:12:00 [facility] Heart rate 2020-12-15 93 /min [facility] of 14:12:00 [facility] Body temperature 2020-12-15 36.89 Ruthann [facility] 14:12:00 [facility] Respiratory rate 2020-12-15 16 /min [facility] of 14:12:00 [facility] Body height 2020-12-15 167.6 cm University of 14:12:00 [facility] Body weight 2020-12-15 90.81 kg University of 14:12:00 [facility] BMI 2020-12-15 32.31 kg/m2 University of 14:12:00 [facility] Systolic blood 2020-11-28 119 mm[Hg] [facility] of pressure 20:23:00 [facility] Diastolic blood 2020-11-28 83 mm[Hg] University o f pressure 20:23:00 [facility] Heart rate 2020-11-28 87 /min [facility] of 20:23:00 [facility] Body temperature 2020-11-28 36.89 Ruthann [facility] 20:23:00 [facility] Respiratory rate 2020-11-28 18 /min [facility] of 20:23:00 [facility] Oxygen saturation 2020-11-28 99 /min [facility] Arterial blood 20:23:00 [facility] by Pulse oximetry [place] Body height 2020-11-27 167.6 cm University of :33:00 [facility] Body weight 2020-11-27 99.791 kg University of 09:33:00 [facility] BMI 2020-11-27 35.53 kg/m2 University of 09:33:00 [facility] Systolic blood 2020-11-26 135 mm[Hg] [facility] of pressure 20:57:00 [facility] Diastolic blood 2020-11-26 77 mm[Hg] University o f pressure 20:57:00 [facility] Heart rate 2020-11-26 90 /min manual count University of 20:57:00 [facility] Body temperature 2020-11-26 36.83 Ruthann [facility] 20:57:00 [facility] Respiratory rate 2020-11-26 18 /min [facility] of 20:57:00 [facility] Body height 2020-11-26 167.6 cm University of 20:57:00 [facility] Body weight 2020-11-26 99.882 kg University of 20:57:00 [facility] BMI 2020-11-26 35.54 kg/m2 University of 20:57:00 [facility] Systolic blood 2020-11-19 105 mm[Hg] [facility] of pressure 21:31:00 [facility] Diastolic blood 2020-11-19 80 mm[Hg] [facility] o [facility] pressure 21:31:00 [facility] Heart rate 2020-11-19 118 /min [facility] of 21:31:00 [facility] Body temperature 2020-11-19 36.94 Ruthann [facility] of 21:31:00 [facility] Respiratory rate 2020-11-19 18 /min University of :31:00 [facility] Body height 2020-11-19 167.6 cm University of :31:00 [facility] Body weight 2020-11-19 98.884 kg University of :31:00 [facility] BMI 2020-11-19 35.19 kg/m2 University of 21:31:00 [facility] Systolic blood 2020-11-10 115 mm[Hg] [facility] of pressure 21:35:00 [facility] Diastolic blood 2020-11-10 77 mm[Hg] [facility] o [facility] pressure 21:35:00 [facility] Heart rate 2020-11-10 113 /min University of 21:35:00 [facility] Body temperature 2020-11-10 36.44 Ruthann University of 21:35:00 [facility] Respiratory rate 2020-11-10 18 /min [facility] of 21:35:00 [facility] Body height 2020-11-10 167.6 cm University of 21:35:00 [facility] Body weight 2020-11-10 97.523 kg University of 21:35:00 [facility] BMI 2020-11-10 34.70 kg/m2 University of 21:35:00 [facility] Systolic blood 2020-10-29 114 mm[Hg] [facility] of pressure 20:32:00 [facility] Diastolic blood 2020-10-29 73 mm[Hg] University o f pressure 20:32:00 [facility] Heart rate 2020-10-29 113 /min [facility] of 20:32:00 [facility] Body temperature 2020-10-29 36.89 Ruthann University of 20:32:00 [facility] Respiratory rate 2020-10-29 18 /min [facility] of 20:32:00 [facility] Body height 2020-10-29 167.6 cm University of 20:32:00 [facility] Body weight 2020-10-29 96.979 kg University of 20:32:00 [facility] BMI 2020-10-29 34.51 kg/m2 University of 20:32:00 [facility] Heart rate 2020-10-21 104 /min University of 02:30:00 [facility] Oxygen saturation 2020-10-21 98 /min [facility] in Arterial blood 02:15:00 [facility] Pulse oximetry [place] Systolic blood 2020-10-21 122 mm[Hg] University of pressure 00:33:00 [facility] Diastolic blood 2020-10-21 79 mm[Hg] University o f pressure 00:33:00 [facility] Body temperature 2020-10-21 36.83 Ruthann University of 00:33:00 [facility] Respiratory rate 2020-10-21 18 /min University of 00:33:00 [facility] Body height 2020-10-21 167.6 cm University of 00:33:00 [facility] Body weight 2020-10-21 97.342 kg University of 00:33:00 [facility] BMI 2020-10-21 34.64 kg/m2 University of 00:33:00 [facility] Systolic blood 2020-10-16 115 mm[Hg] University of pressure 18:23:00 [facility] Diastolic blood 2020-10-16 75 mm[Hg] University o f pressure 18:23:00 [facility] Heart rate 2020-10-16 90 /min University of 18:23:00 [facility] Body temperature 2020-10-16 36.78 Ruthann University of 18:23:00 [facility] Respiratory rate 2020-10-16 16 /min University of 18:23:00 [facility] Body height 2020-10-16 167.6 cm University of 18:23:00 [facility] Body weight 2020-10-16 96.344 kg University of 18:23:00 [facility] BMI 2020-10-16 34.28 kg/m2 University of 18:23:00 [facility] Systolic blood 2020-10-02 113 mm[Hg] University of pressure 15:54:00 [facility] Diastolic blood 2020-10-02 74 mm[Hg] University o f pressure 15:54:00 [facility] Heart rate 2020-10-02 114 /min University of 15:54:00 [facility] Body temperature 2020-10-02 36.78 Ruthann University of 15:54:00 [facility] Respiratory rate 2020-10-02 18 /min University of 15:54:00 [facility] Body height 2020-10-02 167.6 cm University of 15:54:00 [facility] Body weight 2020-10-02 94.348 kg University of 15:54:00 [facility] BMI 2020-10-02 33.57 kg/m2 University of 15:54:00 [facility] Systolic blood 2020-09-01 116 mm[Hg] University of pressure 16:50:00 [facility] Diastolic blood 2020-09-01 72 mm[Hg] University o f pressure 16:50:00 [facility] Heart rate 2020-09-01 106 /min University of 16:50:00 [facility] Body temperature 2020-09-01 36.67 Ruthann University of 16:50:00 [facility] Respiratory rate 2020-09-01 18 /min University of 16:50:00 [facility] Body height 2020-09-01 167.6 cm University of 16:50:00 [facility] Body weight 2020-09-01 92.987 kg University of 16:50:00 [facility] BMI 2020-09-01 33.09 kg/m2 University of 16:50:00 [facility] Systolic blood 2020-07-07 111 mm[Hg] University of pressure 17:28:00 [facility] Diastolic blood 2020-07-07 79 mm[Hg] University o f pressure 17:28:00 [facility] Heart rate 2020-07-07 107 /min University of 17:28:00 [facility] Body temperature 2020-07-07 36.94 Ruthann University of 17:28:00 [facility] Respiratory rate 2020-07-07 16 /min University of 17:28:00 [facility] Body height 2020-07-07 167.6 cm University of 17:28:00 [facility] Body weight 2020-07-07 90.719 kg University of 17:28:00 [facility] BMI 2020-07-07 32.28 kg/m2 University of 17:28:00 [facility] Systolic blood 2020-06-09 109 mm[Hg] University of pressure 20:12:00 [facility] Diastolic blood 2020-06-09 75 mm[Hg] University o f pressure 20:12:00 [facility] Heart rate 2020-06-09 96 /min University of 20:12:00 [facility] Body temperature 2020-06-09 36.78 Ruthann University of 20:12:00 [facility] Respiratory rate 2020-06-09 16 /min University of 20:12:00 [facility] Body height 2020-06-09 167.6 cm University of 20:12:00 [facility] Body weight 2020-06-09 90.538 kg University of 20:12:00 [facility] BMI 2020-06-09 32.22 kg/m2 University of 20:12:00 [facility] Systolic blood 2020-05-08 100 mm[Hg] University of pressure 19:03:00 [facility] Diastolic blood 2020-05-08 66 mm[Hg] University o f pressure 19:03:00 [facility] Heart rate 2020-05-08 82 /min University of 19:03:00 [facility] Body temperature 2020-05-08 36.94 Ruthann University of 19:03:00 [facility] Respiratory rate 2020-05-08 18 /min University of 19:03:00 [facility] Body height 2020-05-08 167.6 cm University of 19:03:00 [facility] Body weight 2020-05-08 89.812 kg University of 19:03:00 [facility] BMI 2020-05-08 31.96 kg/m2 University of 19:03:00 [facility] Body weight 2020-04-10 88.27 kg University of 13:54:00 [facility] BMI 2020-04-10 31.41 kg/m2 University of 13:54:00 [facility] Systolic blood 2020-04-10 99 mm[Hg] University of pressure 13:54:00 [facility] Diastolic blood 2020-04-10 67 mm[Hg] University o f pressure 13:54:00 [facility] Heart rate 2020-04-10 79 /min University of 13:54:00 [facility] Body temperature 2020-04-10 36.94 Ruthann University of 13:54:00 [facility] Respiratory rate 2020-04-10 18 /min University of 13:54:00 [facility] Body height 2020-04-10 167.6 cm University of 13:54:00 [facility] Systolic blood 2019-12-18 117 mm[Hg] University of pressure 20:26:00 [facility] Diastolic blood 2019-12-18 82 mm[Hg] University o f pressure 20:26:00 [facility] Heart rate 2019-12-18 87 /min University of 20:26:00 [facility] Body temperature 2019-12-18 36.78 Ruthann University of 20:26:00 [facility] Respiratory rate 2019-12-18 16 /min University of 20:26:00 [facility] Body height 2019-12-18 165.1 cm University of 20:26:00 [facility] Body weight 2019-12-18 90.408 kg University of 20:26:00 [facility] BMI 2019-12-18 33.17 kg/m2 University of 20:26:00 [facility] Systolic blood 2019-07-23 103 mm[Hg] University of pressure 21:59:00 [facility] Diastolic blood 2019-07-23 68 mm[Hg] University o f pressure 21:59:00 [facility] Heart rate 2019-07-23 96 /min University of 21:59:00 [facility] Body temperature 2019-07-23 36.72 Ruthnan University of 21:59:00 [facility] Respiratory rate 2019-07-23 18 /min University of 21:59:00 [facility] Body height 2019-07-23 165.1 cm University of 21:59:00 [facility] Body weight 2019-07-23 88.361 kg University of 21:59:00 [facility] BMI 2019-07-23 32.42 kg/m2 University of 21:59:00 [facility] Systolic blood 2019-03-06 109 mm[Hg] University of pressure 18:36:00 [facility] Diastolic blood 2019-03-06 69 mm[Hg] University o f pressure 18:36:00 [facility] Heart rate 2019-03-06 95 /min University of 18:36:00 [facility] Body temperature 2019-03-06 36.83 Ruthann University of 18:36:00 [facility] Respiratory rate 2019-03-06 18 /min University of 18:36:00 [facility] Body height 2019-03-06 167.6 cm University of 18:36:00 [facility] Body weight 2019-03-06 91.536 kg University of 18:36:00 [facility] BMI 2019-03-06 32.57 kg/m2 University of 18:36:00 [facility] Systolic blood 2019-02-20 114 mm[Hg] University of pressure 14:01:00 [facility] Diastolic blood 2019-02-20 74 mm[Hg] University o f pressure 14:01:00 [facility] Heart rate 2019-02-20 108 /min University of 14:01:00 [facility] Body temperature 2019-02-20 36.67 Ruthann University of 14:01:00 [facility] Respiratory rate 2019-02-20 18 /min University of 14:01:00 [facility] Body height 2019-02-20 167.6 cm University of 14:01:00 [facility] Body weight 2019-02-20 88.996 kg University of 14:01:00 [facility] BMI 2019-02-20 31.67 kg/m2 University of 14:01:00 [facility] Systolic blood 2019-02-01 130 mm[Hg] University of pressure 17:05:00 [facility] Diastolic blood 2019-02-01 86 mm[Hg] University o f pressure 17:05:00 [facility] Heart rate 2019-02-01 96 /min University of 17:05:00 [facility] Body temperature 2019-02-01 37 Ruthann University of 17:05:00 [facility] Respiratory rate 2019-02-01 18 /min University of 17:05:00 [facility] Body height 2019-02-01 170.2 cm University of 17:05:00 [facility] Body weight 2019-02-01 85.276 kg University of 17:05:00 [facility] BMI 2019-02-01 29.44 kg/m2 University of 17:05:00 [facility] Systolic blood 2019-01-22 97 mm[Hg] University of pressure 18:57:00 [facility] Diastolic blood 2019-01-22 62 mm[Hg] University o f pressure 18:57:00 [facility] Heart rate 2019-01-22 99 /min University of 18:57:00 [facility] Body temperature 2019-01-22 36.78 Ruthann University of 18:57:00 [facility] Respiratory rate 2019-01-22 18 /min [facility] 18:57:00 [facility] Body height 2019-01-22 170.2 cm [facility] 18:57:00 [facility] Body weight 2019-01-22 85.095 kg [facility] 18:57:00 [facility] BMI 2019-01-22 29.38 kg/m2 [facility] 18:57:00 [facility] Procedures Procedure Date / Time Performing Clinician Source Performed 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 [place] [facility] POCT TEST 2021-01-14 00:00:00 Jennifer Moon [facility] VENOUS CORD GAS 2020-11-27 21:10:[address] [facility] CENTRAL NEURAXIAL BLOCK 2020-11-27 17:32:35 J Luis Lopez [facility] COVID-19 (ID NOW RAPID 2020-11-27 09:44:00 Jennifer Moon [facility] TESTING) Medical Branch LAB ONLY COVID 2020-11-27 09:44:00 Jennifer Moon [facility] INTERPRETATION [facility] CBC WITH DIFF 2020-11-27 09:42:00 [facility] 2020-11-27 09:42:00 Jennifer Moon [facility] ANTIGEN [facility] ADC OR TABBY ONLY - RPR 2020-11-27 09:42:00 Jennifer Moon [facility] HIV 1/2 AG-AB WITH REFLEX 2020-11-27 09:42:00 Jennifer Moon [facility] HB ABO GROUPING 2020-11-27 09:40:00 Moon [facility] RHO (D) IMMUNE GLOBULIN 2020-11-27 09:40:00 Jennifer Moon [facility] NOTICE OF PRIVACY 2020-11-26 21:54:28 Doctor Adeel, [facility] PRACTICES [place] [facility] CONSENT/REFUSAL FOR 2020-11-26 21:54:19 Doctor Adeel, [facility] DIAGNOSIS AND TREATMENT [place] Medical Branch ASSIGNMENT OF BENEFITS 2020-11-26 21:54:08 Doctor Unassigned, [facility] Medical Branch POCT URINALYSIS W/O 2020-11-26 00:00:00 Jennifer Moon [facility] [place] Medical Branch POCT URINALYSIS W/O 2020-11-19 00:00:00 Jennifer Moon [facility] [place] Medical Branch DSU PRE-OP 2020-11-10 05:01:00 Doctor Unassjulio, [facility] [place] Medical Branch POCT URINALYSIS W/O 2020-11-10 00:00:00 Jennifer Moon [facility] GLUCOSE 1 HOUR POST 2020-11-06 14:55:00 Jennifer Moon [facility] Branch CBC WITH DIFF 2020-11-06 14:55:00 Jennifer Moon [facility] HIV 1/2 AG-AB WITH REFLEX 2020-11-06 14:55:00 Jennifer Moon [facility] >14 WEEKS US 2020-10-29 21:15:19 Jennifer Moon [facility] POCT URINALYSIS W/O 2020-10-29 00:00:00 Jennifer Moon [facility] Medical [place] BASIC METABOLIC PANEL 2020-10-21 01:32:00 Jennifer Moon [facility] (NA, K, CL, CO2, GLUCOSE, Medica l Branch BUN, CREATININE, CA) CBC WITH DIFF 2020-10-21 01:32:00 Jennifer Moon [facility] [facility] COVID-19 (ID NOW RAPID 2020-10-21 00:47:00 Jennifer Moon [facility] TESTING) Medical Branch POCT GLUCOSE (AUTOMATED) 2020-10-21 00:45:00 Jennifer Moon [facility] NOTICE OF PRIVACY 2020-10-21 00:20:43 Doctor Adeel, [facility] PRACTICES [place] Medical Branch ASSIGNMENT OF BENEFITS 2020-10-21 00:20:32 Doctor Unassigned, [facility] Medical Branch CONSENT/REFUSAL FOR 2020-10-21 00:20:15 Doctor Unaroberto, [facility] DIAGNOSIS AND TREATMENT [place] Medical Branch POCT URINALYSIS W/O 2020-10-16 18:25:00 [facility] [place] Medical Branch POCT URINALYSIS W/O 2020-10-02 00:00:00 Jennifer Moon [facility] [place] Medical [place] TDAP VACCINE, >11 YRS, IM 2020-09-01 16:59:54 Jennifer Moon [facility] POCT URINALYSIS W/O 2020-09-01 00:00:00 Jennifer Moon [facility] Medical [place] POCT URINALYSIS W/O 2020-07-07 17:28:00 Zehra Shearer [facility] [place] Medical [place] PHYSICIAN ORDERS 2020-06-11 06:01:00 Doctor Adeel, [facility] Medical [place] POCT URINALYSIS W/O 2020-06-09 20:13:00 Jennifer Moon [facility] CBC WITH DIFF 2020-05-20 14:34:00 Jennifer Moon [place] [facility] SCANNED LAB RESULTS 2020-05-08 06:01:00 Doctor Adeel, [facility] Medical [place] POCT URINALYSIS W/O 2020-05-08 00:00:00 [facility] Moon [facility] [place] Medical [place] US OB TRANSVAGINAL 2020-04-10 15:28:59 Jennifer Moon [facility] y [facility] GC & CHLAMYDIA AMPLIFIED 2020-04-10 15:03:00 Jennifer Moon [facility] ASSAY [facility] ADC / LCC - DRUG SCREEN 2020-04-10 15:03:00 Jennifer Moon [facility] TRIAGE Medical [place] FLU VACC ([id number]), 6+ 2020-04-10 14:45:10 Jennifer Moon [facility] MONTHS, IM, QUAD Medical Branch ASSIGNMENT OF BENEFITS 2020-04-10 13:25:20 Doctor [facility]ulio, [facility] [place] Medical Branch POCT TEST 2020-04-10 00:00:00 Jennifer Moon [facility] Medical [place] POCT URINALYSIS W/O 2020-04-10 00:00:00 Jennifer Moon [facility] SPECIFIC GRAVITY Medical Branch CONSENT FOR ORAL 2019-07-23 06:01:00 Doctor Unassigned, [facility] CONTRACEPTIVES [place] Medical Branch POCT TEST 2019-07-23 00:00:00 Jennifer Moon [facility] 3 HR GLUCOSE TOLERANCE 2019-03-07 17:18:00 [facility] Medical [place] 2 HR GLUCOSE TOLERANCE 2019-03-07 16:20:00 [facility] 1 HR GLUCOSE TOLERANCE 2019-03-07 15:20:00 Ze[facility]ra [facility] GLUCOSE FASTING 2019-03-07 14:19:00 Janki [facility] o f [facility] 3 HR GLUCOSE TOLERANCE 2019-03-07 14:19:00 Zehra [facility] PANEL [facility] TDAP (ADACEL) 2019-03-06 19:28:21 [facility] f [place] IMMUNIZATION [facility] Branch ASSIGNMENT OF BENEFITS 2019-03-01 13:41:00 Doctor Unassigned, [facility] [place] Medical [place] SECOND AND THIRD 2019-01-19 14:34:00 Neomy Magaña [facility] TRIMESTER ULTRASOUND [facility] Encounters Start End Encounter Admission Attending Care Care Encounter Source Date/Time Date/Time Type Type Clinicians Facility Department ID 2021-04-26 Outpatient P [facility] [id number] Univers 22:48:00 ity [facility] 2021-04-26 Outpatient P [facility] GABRIELLA [id number] Univers 15:25:46 ity [facility] 2021-04-26 Outpatient P [facility]LLA [id number] Univers [facility]:25[facility] 2021-03-20 Outpatient R [facility] [id number] Univers 19:30:00 19:30:00 [id number] [facility] 2021-03-20 2021-03-20 Outpatient R KATHERINE SNOWDENMB [facility] [id number] Univers 19:30:00 19:30:00 KATHERINE SNOWDEN ity [facility] 2021-03-18 2021-03-18 Outpatient R [facility] [id number] Univers 08:00:00 08:00:00 [id number] ity [facility] 2021-03-18 2021-03-18 Outpatient R [facility] [id number] Univers 08:00:00 08:00:00 ity [facility] 2021-03-16 2021-03-16 Outpatient R [facility] [id number] Univers 19:20:00 19:20:00 [id number] ity [facility] 2021-03-16 2021-03-16 [facility] [id number] Univers 19:20:00 [facility]:20:00 [facility] 2021-03-16 2021-03-16 [facility] [id number] Univers 18:05:26 18:25:[address] [facility] [id number] ity of [place] [id number] Jimmie as Meng?Blea [phone] [address] Medical Office [facility] 2021-03-03 2021-03-03 Letter KATHRIN Williamson [id number] Univers 00:00:00 00:00:00 (Out) Kasandra SANTANA [id number] it y of [facility] [id number] Jimmie as [phone] [address] 2021-03-02 2021-03-02 Urgent Олег [facility] [id number] Univers 11:51:40 12:11:40 Care [facility] [id number] ity of [place] [id number] Jimmie as Meng?Blea [phone] [address] Medical Office Building 2021-03-02 2021-03-02 Outpatient [facility] [id number] Univers 12:00:00 12:00:00 [id number] ity of [facility] 2021-03-02 2021-03-02 Outpatient R TRENT [facility] [id number] Univers 12:00:00 12:00:00 HCINMAY ity o f [facility] 2021-03-02 2021-03-02 Telephone [facility] [id number] Univers 00:00:00 00:00:00 [facility] [id number] it y of [place] [id number] Jimmie as Meng?Blea [phone] [address] Medical Office Building 2021-02-28 2021-02-28 Letter KATHRIN Williamson [id number] Univers 00:00:00 00:00:00 (Out) Kasandra Yoli ESTHER [id number] it y of [facility] [id number] Jimmie as [id number] [address] 2021-02-27 2021-02-27 Urgent [facility] [id number] Univers 14:27:00 15:05:28 Care [facility] [id number] it y of [place] [id number] Jimmie as Meng?Blea [phone] [address] Medical Office [facility] 2021-02-27 2021-02-27 Outpatient R [facility] [id number] Univers 14:20:00 14:20:00 [id number] ity of [facility] 2021-02-27 2021-02-27 Outpatient R [facility] [id number] Univers 14:20:00 14:20:00 [facility] 2021-02-18 2021-02-18 Office [facility] [id number] Univers 14:27:22 14:47:22 Visit Katherine Kent [place] [id number] [id number] [phone] [place] [id number] [facility] 2021-02-18 2021-02-18 Outpatient R KATHERINE SNOWDEN [facility] [id number] Univers 14:20:00 14:20:00 KATHERINE SNOWDEN ity [facility] 2021-02-18 2021-02-18 Out[facility] [id number] Univers 14:10:00 14:10:00 YUMIELICEO KATHERINE [id number] ity [facility] 2021-02-12 2021-02-12 Outpatient R JENNIFER MOON [facility] [id number] Univers 08:00:00 08:00:00 [id number] ity [facility] 2021-02-12 2021-02-12 Outpatient R RED [facility] [id number] Univers 08:00:00 08:00:00 ity [facility] 2021-01-14 2021-01-14 Office Red [facility] [id number] Univers 09:05:05 09:57:14 Visit Myriam Hutchins [id number] i [id number] [phone] Ok dical nal 134 [facility] 2021-01-14 2021-01-14 Outpatient R JENNIFER MOON [facility] [id number] Univers 09:15:00 09:15:00 [id number] ity [facility] 2021-01-14 2021-01-14 Outpatient R MOON [facility] [id number] Univers 09:15:00 09:15:00 ity [facility] 2021-01-14 2021-01-14 Orders Doctor KATHRIN [id number] Univers 00:00:00 00:00:00 Only Unassigned, ESTHER [id number] ity of [facility] [id number] Jimmie as [phone] [facility] 009 [place] 2021-01-06 2021-01-06 Office Janki [facility] [id number] Univers 11:12:01 11:51:44 Visit Zehra Hutchins [id number] [id number] [phone] Ok dical nal [address] [place] [address] 2021-01-06 2021-01-06 Outpatient R JANKI [facility] [id number] Univers 11:15:00 11:15:00 ZEHRA [id number] [facility] 2021-01-06 2021-01-06 Outpatient R JANKI [facility] [id number] Univers 11:15:00 11:15:00 [facility] 2020-12-31 2020-12-31 Outpatient R EDDA SNOWDENDCTosha [facility] [id number] Univers 15:30:00 15:30:00 KATHERINE SNOWDEN 7 07 [facility] 2020-12-31 2020-12-31 Outpatient R EDDA SNOWDENDCTosha [facility] [id number] Univers 15:30:00 15:30:00 KATHERINE SNOWDEN [facility] 2020-12-30 2020-12-30 Routine Red [facility] [id number] Univers 14:52:20 15:51:42 Myriam Hutchins [id number] ity of [id number] [phone] Ok dical [address] 2020-12-30 2020-12-30 Outpatient R JENNIFER MOON [facility] [id number] Univers 15:00:00 15:00:00 [id number] [facility] 2020-12-30 2020-12-30 Outpatient R RED JENNIFER [facility] [id number] Univers 15:00:00 15:00:00 [facility] 2020-12-24 2020-12-24 Outpatient R JENNIFER MOON [facility] [id number] Univers 13:15:00 13:15:00 [id number] [facility] 2020-12-24 2020-12-24 Outpatient R JENNIFER MOON [facility] [id number] Univers 13:15:00 13:15:00 ity of [facility] 2020-12-23 2020-12-23 Telephone Jennifer Moon MNSUNNY 1.2.840.114 [id number] Univers 00:00:00 00:00:00 [place] 350.1.13.10 [place] [phone] Ok dicne nal [address] [place] [address] 2020-12-16 2020-12-16 Telephone Jennifer Moon [facility] 1.2.840.114 [id number] Univers 00:00:00 00:00:00 Cam [place] 350.1.13.10 [place] [phone] Ok dic[address] 2020-12-15 2020-12-15 Routine Jennifer Moon [facility] 1.2.478.330 [id number] Univers 09:00:04 09:48:48 Cam [place] 350.1.13.10 [place] [phone] [address] 2020-12-15 2020-12-15 Outpatient R JENNIFER [facility] [id number] 4N-20 Univers 09:00:00 09:00:00 [id number] ity of [facility] 2020-12-15 2020-12-15 Outpatient R [facility]ENN[facility] [id number] Univers 09:00:00 09:00:00 ity of [facility] 2020-12-12 2020-12-12 [facility] 1.2.840.114 [id number] Univers 00:00:00 00:00:00 Cam [place] 350.1.13.10 [place] [phone] Ok dical nal [address] [place] [address] 2020-12-03 2020-12-03 [facility] 1.2.840.114 [id number] Univers 00:00:00 00:00:00 Jing Tosha [place] 350.1.13.10 [place] [phone] Ok dical nal [address] [place] [address] 2020-11-28 2020-11-28 Anesthesia John [facility] 1.2.840.114 [id number] Univers 20:03:56 20:03:56 Event J Luis Liset 350.1.13.10 i [place] [phone] [address] 2020-11-27 2020-11-28 Hospital Jennifer Moon [facility] 1.2.840.114 [id number] Univers 04:13:00 19:45:00 Encounter Myriam Messinaton 350.1.13.10 [place] [phone] [address] 2020-11-27 2020-11-27 [facility]est[facility] 1.2.840.11 [id number] Univers 12:00:00 19:38:00 Event Fernie Ramirez [place] 350.1.13.10 ity of [place] 4.2.7.2.686 [facility] [place] [phone] [address] 2020-11-26 2020-11-26 Routine Jennifer Moon [facility] 1.2.095.596 [id number] Univers 15:44:51 16:29:12 Cam [place] 350.1.13.10 [place] [phone] Ok dical nal [address] [place] [address] 2020-11-26 2020-11-26 Outpatient R [facility] [id number] 4N-20 Univers 15:45:00 15:45:00 [id number] ity of [facility] 2020-11-26 2020-11-26 Outpatient R [facility] [id number] Univers 15:45:00 15:45:00 ity [facility] 2020-11-19 2020-11-19 Routine [facility] 1.2.238.249 [id number] Univers 16:02:37 16:17:37 Cam [place] 350.1.13.10 [place] [phone] [address] 2020-11-19 2020-11-19 Outpatient R [facility] [id number] 4N-20 Univers 16:00:00 16:00:00 [id number] ity of [facility] 2020-11-19 2020-11-19 Outpatient R RED [facility] [id number] Univers 16:00:00 16:00:00 ity of [facility] 2020-11-17 2020-11-17 Outpatient R [facility] [id number] 4N-20 Univers 15:30:00 15:30:00 [id number] ity of [facility] 2020-11-17 2020-11-17 Outpatient R RED [facility] [id number] Univers 15:30:00 15:30:00 ity of [facility] 2020-11-10 2020-11-10 Routine Red [facility] 1.2.281.283 [id number] Univers 16:02:21 17:08:52 Cam [place] 350.1.13.10 [place] [phone] [address] 2020-11-10 2020-11-10 Outpatient R JENN[facility] [id number] 4N-20 Univers 16:00:00 16:00:00 [id number] ity of [facility] 2020-11-10 2020-11-10 Outpatient R RED [facility] [id number] Univers 16:00:00 16:00:00 ity of [facility] 2020-11-10 2020-11-10 Orders Doctor PINON 1.2.840.114 [id number] Univers 00:00:00 00:00:00 Only Unassigned, ESTHER 350.1.13.10 ity of [place] [facility] 4.2.7.2.686 Jimmie as [phone] [facility] [address] [place] 2020-11-07 2020-11-07 Telephone Jennifer Moon [facility] 1.2.840.114 [id number] Univers 00:00:00 00:00:00 Cam [place] 350.1.13.10 i [place] [phone] Ok dical nal 134 [facility] 2020-11-06 2020-11-06 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 2, Adc Lab [facility] 1.2.840.114 [id number] Univers 08:42:50 08:57:50 Visit Jennifer Moonton 350.1.13.10 [place] [phone] Ok dicmaida formerly [facility] [address] [facility] 2020-11-06 2020-11-06 Outpatient R JENNIFER [facility] [id number] Univers 08:15:00 08:15:00 ity [facility] 2020-11-06 2020-11-06 Outpatient R [facility] [id number] Univers 08:15:00 08:15:00 [id number] ity [facility] 2020-10-29 2020-10-29 Routine Jennifer Moon [facility] 1.2.859.240 [id number] Univers 15:06:42 16:06:30 Myriam Hutchins 350.1.13.10 [place] [phone] Ok dical [facility] [address] [facility] 2020-10-29 2020-10-29 Outpatient R JENNIFER [facility] [id number] 4N-20 Univers 15:15:00 15:15:00 [id number] ity [facility] 2020-10-29 2020-10-29 Outpatient R RED JENNIFER [facility] [id number] Univers 15:15:00 15:15:00 ity [facility] 2020-10-21 2020-10-21 Outpatient R [facility] [id number] Univers 08:15:00 08:15:00 [id number] ity [facility] 2020-10-20 2020-10-20 Hospital Jennifer Moon [facility] 1.2.840.114 [id number] Univers 19:18:00 21:40:00 Encounter Cam [place] 350.1.13.10 [place] [phone] [facility] [address] [place] 2020-10-16 2020-10-16 Routine Jennifer Moon [facility] 1.2.157.237 [id number] Univers 13:03:21 13:50:44 Cam [place] 350.1.13.10 [place] [phone] Ok dical nal [address] [place] [address] 2020-10-16 2020-10-16 Outpatient R JENNIFER MOON [facility] [id number] 4N-20 Univers 13:15:00 13:15:00 [id number] ity [facility] 2020-10-16 2020-10-16 Outpatient R [facility] [id number] Univers 13:15:00 13:15:00 ity [facility] 2020-10-08 2020-10-08 Outpatient R [facility] [id number] Univers 08:00:00 08:00:00 [id number] ity [facility] 2020-10-02 2020-10-02 Routine Red [facility] 1.2.659.025 [id number] Univers 10:35:56 11:14:46 Cam [place] 350.1.13.10 [place] [phone] Ok dical nal [address] [place] [address] 2020-10-02 2020-10-02 [facility] [id number] 4N-20 Univers 10:45:00 10:45:00 [id number] ity [facility] 2020-10-02 2020-10-02 Outpatient R RED [facility] [id number] Univers 10:45:00 10:45:00 ity [facility] 2020-09-30 2020-09-30 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 Ultrasound[facility] 1.2 .840.114 [id number] Univers 07:57:19 08:35:58 Visit Niya Roberts FOOD SERVICE COUNTER CLERK 350.1. 13.10 ity of [facility] 4.2.7.2.686 Jimmie as MATERNAL [phone] Med ical & CHILD [address] [place] [address] 2020-09-30 2020-09-30 Outpatient R [facility] [id number] Univers 08:00:00 08:00:00 [id number] ity [facility] 2020-09-30 2020-09-30 Outpatient P [facility] [id number] Univers 08:00:00 08:00:00 ity [facility] 2020-09-26 2020-09-26 Outpatient R [facility] [id number] Univers 15:30:00 15:30:00 [id number] [facility] 2020-09-26 2020-09-26 Outpatient R JENNIFER MOON [facility] [id number] Univers 15:30:00 15:30:00 ity [facility] 2020-09-23 2020-09-23 Telephone Jennifer Moon [facility] 1.2.840.114 [id number] Univers 00:00:00 00:00:00 Cam [place] 350.1.13.10 [place] [phone] Ok dical nal [address] [facility] 2020-09-16 2020-09-16 Patient Eyad [facility] 1.2.840.114 [id number] Univers 00:00:00 00:00:00 [facility] 350.1.13.10 i ty of [place] [facility] [place].2.7.2.[place] [phone] Ok dical [address] [place] 2020-09-15 2020-09-15 Telephone Alexey, [facility] 1.2.840.114 [id number] Univers 00:00:00 00:00:00 [facility] 350.1.13.10 [place] [phone] Ok dic[address] 2020-09-15 2020-09-15 Refill Jennifer Moon [facility] 1.2.213.589 [id number] Univers 00:00:00 00:00:00 Myriam Hutchins 350.1.13.10 [place] [phone] [address] 2020-09-02 2020-09-02 Outpatient Ricardo SHEARER [facility] [id number] 4N-20 Univers 13:30:00 13:30:00 ZEHRA [id number] [facility] 2020-09-02 2020-09-02 Outpatient Ricardo SHEARER [facility] [id number] Univers 13:30:00 13:30:00 [facility] 2020-09-01 2020-09-01 Routine Jennifer Moon [facility] 1.2.840.114 [id number] Univers 10:14:59 11:23:03 Zerha Shearer 350.1.13.10 [place] [phone] [address] 2020-09-01 2020-09-01 Outpatient R JANKI [facility] [id number] 4N-20 Univers 10:15:00 10:15:00 ZEHRA [id number] [facility] 2020-09-01 2020-09-01 Outpatient Ricardo SHEARER [facility] [id number] Univers 10:15:00 10:15:00 [facility] 2020-08-29 2020-08-29 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 Ultrasound, Adc [facility] 1.2 .840.114 [id number] Univers 15:39:31 16:09:31 Visit Niya Roberts 350.1 .13.10 [place] [phone] [address] 2020-08-29 2020-08-29 Outpatient P [facility] [id number] Univers 15:30:00 15:30:00 [id number] ity [facility] 2020-08-29 2020-08-29 Outpatient P [facility] [id number] Univers 15:30:00 15:30:00 ity [facility] 2020-08-15 2020-08-15 Outpatient R [facility] [id number] Univers 11:30:00 11:30:00 [id number] ity [facility] 2020-08-15 2020-08-15 Outpatient P [facility] [id number] Univers 11:30:00 11:30:00 ity [facility] 2020-08-15 2020-08-15 Telephone KATHRIN Rivas 1.2.047.258 [id number] Univers 00:00:00 00:00:00 Vida FOSTERY 350.1.13.10 it [facility] 4.2.7.2.686 [place] as [phone] [address] 2020-08-14 2020-08-14 Outpatient R [facility] [id number] Univers 10:40:00 10:40:00 [id number] ity [facility] 2020-08-14 2020-08-14 Outpatient R REMEDIOS [facility] [id number] Univers 10:40:00 10:40:00 [facility] 2020-08-14 2020-08-14 Nurse KATHRIN Villegas 1.2.945.974 [id number] Univers 00:00:00 00:00:00 Triage Patricio SANTANA 350.1.13.10 it [facility] 4.2.7.2.686 [place] [phone] [address] 2020-08-05 2020-08-05 Outpatient R JENNIFER MOON [facility] [id number] Univers 13:15:00 13:15:00 ity [facility] 2020-08-04 2020-08-04 Outpatient JENNIFER POST [facility] [id number] [id number]-20 Univers 11:00:00 11:00:00 [id number] ity [facility] 2020-08-04 2020-08-04 Outpatient JENNIFER POST [facility] [id number] Univers 11:00:00 11:00:00 ity [facility] 2020-07-23 2020-07-23 Outpatient R JENNIFER MOON [facility] [id number] [id number]-20 Univers 16:15:00 16:15:00 [id number] ity of [facility] 2020-07-23 2020-07-23 Outpatient R JENNIFER MOON [facility] [id number] Univers 16:15:00 16:15:00 ity [facility] 2020-07-23 2020-07-23 Telemedici Jennifer Moon [facility] 1.2.840.114 [id number] Univers 13:02:30 13:17:30 ne Visit Myriam [place] 350.1.13.10 [place] [phone] Ok dical nal [address] [place] [address] 2020-07-23 2020-07-23 Refill Jennifer Moon [facility] 1.2.038.213 [id number] Univers 00:00:00 00:00:00 Cam [place] 350.1.13.10 i [place] [phone] Ok dical nal [address] [place] [address] 2020-07-18 2020-07-18 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 Ultrasound, [facility] 1.2 .840.114 [id number] Univers 08:55:16 09:55:16 Visit Robin Jones [place] 350.1.13.10 [place] [phone] Ok dical nal [address] [place] [address] 2020-07-18 2020-07-18 Outpatient R [facility] [id number] Univers 09:00:00 09:00:00 [id number] ity of [facility] 2020-07-18 2020-07-18 Outpatient P [facility] [id number] Univers 09:00:00 09:00:00 ity of [facility] 2020-07-18 2020-07-18 Telephone Jennifer Moon [facility] 1.2.840.114 [id number] Univers 00:00:00 00:00:00 Cam [place] 350.1.13.10 [place] [phone] Ok dical nal 134 [facility] 2020-07-07 2020-07-07 Routine Zehra Shearer [facility] 1.2.840.11 [id number] Univers 10:47:37 11:45:28 Jennifer Moon 350.1.13.10 ity [place]2.[place] [phone] Ok dical nal 134 [facility] 2020-07-07 2020-07-07 Outpatient R [facility] [id number] 4N-20 Univers 11:00:00 11:00:00 [id number] ity of [facility] 2020-07-07 2020-07-07 Outpatient R RED [facility] [id number] Univers 11:00:00 11:00:00 ity of [facility] 2020-06-11 2020-06-11 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 2, Adc Lab [facility] 1.2.840.114 [id number] Univers 09:05:49 09:20:49 Visit Jennifer Moon Myriam Hutchins 350.1.13.10 [place] [phone] [facility] [address] [facility] 2020-06-11 2020-06-11 Outpatient R [facility] [id number] Univers 09:00:00 09:00:00 [id number] ity of [facility] 2020-06-11 2020-06-11 Outpatient R [facility] [id number] Univers 09:00:00 09:00:00 ity of [facility] 2020-06-11 2020-06-11 Orders Doctor PINON 1..840.114 [id number] Univers 00:00:00 00:00:00 Only Unassigned, ESTHER 350.1.13.10 ity of [place] [facility] 4.2.7.2.686 Jimmie as [phone] [address] 2020-06-09 2020-06-09 Routine Jennifer Moon [facility] 1.2.602.495 [id number] Univers 13:33:57 14:36:24 Myriam Hutchins 350.1.13.10 ity [place]2.[place] [phone] Ok dical nal 134 [facility] 2020-06-09 2020-06-09 Outpatient R JENNIFER MOON [facility] [id number] [id number] Univers 13:15:00 13:15:00 [id number] ity of [facility] 2020-06-09 2020-06-09 Outpatient R RED [facility] [id number] Univers 13:15:00 13:15:00 ity of [facility] 2020-05-30 2020-05-30 Telephone Red [facility] 1..840.114 [id number] Univers 00:00:00 00:00:00 Myriam Hutchins 350.1.13.10 i [place].2.[place] [phone] Ok dical nal [address] [place] [address] 2020-05-21 2020-05-21 Telephone Janki [facility] 1..840.114 [id number] Univers 00:00:00 00:00:00 Zehra Hutchins 350.1.13.10 i [place].2.[place] [phone] Ok dical nal [address] [place] [address] 2020-05-20 2020-05-20 Outpatient R JENNIFER MOON [facility] [id number] [id number]-20 Univers 14:45:00 14:45:00 [id number] ity of [facility] 2020-05-20 2020-05-20 Outpatient R RED [facility] [id number] Univers 14:45:00 14:45:00 ity of [facility] 2020-05-20 2020-05-20 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 2, Adc Lab [facility] 1.2.840.114 [id number] Univers 08:23:52 08:38:52 Visit Jennifer Moon Liset 350.1.13.10 [place]2.[place] [phone] Ok dical nal [address] [facility] 2020-05-14 2020-05-14 Telephone Red [facility] 1.2.840.114 [id number] Univers 00:00:00 00:00:00 Cam [place] 350.1.13.10 i [place]2.[place] [phone] [address] 2020-05-08 2020-05-08 Outpatient R JENNIFER MOON [facility] [id number] [id number]-20 Univers 16:00:00 16:00:00 [id number] ity of [facility] 2020-05-08 2020-05-08 Routine Jennifer Moon [facility] 1.2.026.936 [id number] Univers 12:48:41 13:55:25 Cam [place] 350.1.13.10 ity [place]2.[place] [phone] [address] 2020-05-08 2020-05-08 Outpatient R JENNIFER MOON [facility] [id number] Univers 13:00:00 13:00:00 ity of [facility] 2020-05-08 2020-05-08 Orders Doctor KATHRIN 1.2.840.114 [id number] Univers 00:00:00 00:00:00 Only Unassigned, ESTHER 350.1.13.10 ity of [place] [facility] 4.2.7.2.686 Jimmie as [phone] [address] 2020-04-24 2020-04-24 Telephone Jennifer Moon [facility] 1.2.840.114 [id number] Univers 00:00:00 00:00:00 Cam [place] 350.1.13.10 [place]2.[place] [phone] [address] 2020-04-10 2020-04-10 Outpatient R JENNIFER MOON [facility] [id number] Univers 10:00:00 10:00:00 ity of [facility] 2020-04-10 2020-04-10 Initial Jennifer Moon [facility] 1.2.664.254 [id number] Univers 08:28:11 09:47:10 Cam [place] 350.1.13.10 ity of [place] 4.2.7.2.686 [place] [phone] Ok dical [address] 2020-04-10 2020-04-10 Outpatient R JENNIFER MOON [facility] [id number] 4N-20 Univers 08:00:00 08:00:00 [id number] ity [facility] 2020-04-10 2020-04-10 Outpatient R RED JENNIFER [facility] [id number] Univers 08:00:00 08:00:00 ity [facility] 2020-04-10 2020-04-10 Orders Doctor KATHRIN 1.2.840.114 [id number] Univers 00:00:00 00:00:00 Only Unassigned, ESTHER 350.1.13.10 ity of [facility] 4.2.7.2.686 Jimmie as [phone] [address] 2020-04-08 2020-04-08 Outpatient R KRISTINE, [facility] [id number] Univers 09:00:00 09:00:00 KERRI tavaresy o f [facility] 2020-04-08 2020-04-08 Outpatient R [facility] [id number] Univers 08:30:00 08:30:00 [id number] [facility] 2020-01-02 2020-01-02 Outpatient R AKINSIPE, [facility] [id number] 4N-20 Univers 13:15:00 13:15:00 DIANA dalal o f [facility] 2020-01-02 2020-01-02 Outpatient R AKINSIPE, [facility] [id number] Univers 13:15:00 13:15:00 DIANA dalal o f [facility] 2019-12-18 2019-12-18 Office Akinsipe, [facility] 1.2.026.762 [id number] Univers 15:15:02 16:19:07 Visit Diana Beltran FOOD SERVICE COUNTER CLERK 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 1.2.840.114 [id number] Univers 15:07:07 15:58:39 Visit Jennifer Moon [place] 350.1.13.10 [place]2.[place] [phone] Ok dic[address] 2019-07-23 2019-07-23 Orders Doctor KATHRIN 1.2.840.114 [id number] Univers 00:00:00 00:00:00 Only Unassigned, ESTHER 350.1.13.10 ity of [place] [facility] 4.2.7.2.686 [place] as [phone] [address] 2019-07-19 2019-07-19 [facility]phone [facility] 1.2.840.114 [id number] Univers 00:00:00 00:00:00 Myriam Hutchins 350.1.13.10 i [place] [phone] Ok dical [address] 2019-07-17 2019-07-17 Telephone Jennifer Moon [facility] 1.2.840.114 [id number] Univers 00:00:00 00:00:00 Myriam Hutchins 350.1.13.10 i [place]2.[place] [phone] Ok dical [address] 2019-07-03 2019-07-03 Outpatient R NOLAN MOONEN [facility] [id number] Univers 13:00:00 13:35:58 ity of [facility] 2019-03-07 2019-03-07 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 1, Adc Lab [facility] 1.2.840.114 [id number] [facility] 09:10:24 09:25:24 Visit Zehra Shearer 350.1.13.10 it[place] [phone] [facility] [address] 2019-03-06 2019-03-06 Routine Zehra Shearer [facility] 1.2.840.11 [id number] [facility] 13:14:12 14:15:30 Jennifer Moon Myriam Hutchins 350.1.13.10 ity [place]2.[place] [phone] [address] 2019-03-02 2019-03-02 Telephone Jennifer Moon [facility] 1.2.840.114 [id number] [facility] 00:00:00 00:00:00 Myriam Hutchins 350.1.13.10 i [place] [phone] [address] 2019-03-01 2019-03-01 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 1, [facility] 1.2.840.114 [id number] [facility] 08:42:00 08:57:00 Visit Jennifer Moon Myriam Hutchins 350.1.13.10 [place] [phone] [address] 2019-03-01 2019-03-01 Orders Doctor KATHRIN 1.2.840.114 [id number] [facility] 00:00:00 00:00:00 Only Unassigned, ESTHER 350.1.13.10 ity of [place] 4.2.7.2.686 Jimmie as [phone] [address] 2019-03-01 2019-03-01 Case Janki [facility] [id number] [id number] [facility] 00:00:00 00:00:00 Management Zehra Hutchins 350.1.13.10 [place] [phone] [address] 2019-02-28 2019-02-28 Telephone Jennifer Moon [facility] 1.2.840.114 [id number] [facility] 00:00:00 00:00:00 Cam [place] 350.1.13.10 i [place] [phone] [address] 2019-02-28 2019-02-28 Telephone Jennifer Moon [facility] 1.2.840.114 [id number] [facility] 00:00:00 00:00:00 Cam [place] 350.1.13.10 [place] [phone] [address] 2019-02-20 2019-02-20 Routine Janki [facility] 1.2.701.806 [id number] [facility] 08:47:06 09:14:48 Zehra Hutchins 350.1.13.10 [place]y [place] [phone] [address] 2019-02-20 2019-02-20 Telephone Jennifer Moon [facility] 1.2.840.114 [id number] [facility] 00:00:00 00:00:00 Cam [place] 350.1.13.10 i [place] [phone] [address] 2019-02-16 2019-02-16 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 Ultrasound, [facility] 1.2 .840.114 [id number] [facility] 08:54:57 09:39:57 Visit Niya Roberts 350.1 .13.10 [place] Professio [id number] [address] 2019-02-01 2019-02-01 Routine Jennifer Moon [facility] [id number] [employer] 11:24:02 12:20:26 [place] 350.1.13.10 ity [place] [phone] [address] 2019-01-22 2019-01-22 Nurse Nurse, [facility] [id number] [facility] 13:35:16 13:58:34 Visit Jennifer Moon [place] 350.1.13.10 [place] [phone] [address] 2019-01-22 2019-01-22 Telephone Jennifer Moon [facility] [id number] [facility] 00:00:00 00:00:00 [place] 350.1.13.10 [place] [phone] [address] 2019-01-19 2019-01-19 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 Ultrasound, [facility] 1.2 .840.114 [id number] [facility] 09:02:41 14:29:50 Visit Jennifer Moon 350.1.13.10 [place] [phone] [address] 2019-01-19 2019-01-19 Telephone Jenniefr Moon [facility] [id number] [facility] 00:00:00 00:00:00 [place] 350.1.13.10 [place] [phone] [address] Results Test Description Test Time Test Comments Results Result Comments Source POCT TEST 2021-01-14 14:47:00 Test Item Value Reference Range Interpretation Comme nts POCT PREG (test code = 1605) Negative On board controls acceptable with C Line (test code = 3574) Yes POCT PREG LOT # (test code = 3575) POCT PREG TEST DATE (test code = 3576) [facility]PO[facility] [id number] 14:47:00 Test Item Value Reference Range Interpretation Comments POCT PREG (test code = 1605) Negative On board controls acceptable with C Yes Line (test code = 3574) POCT PREG LOT # (test code = 3575) POCT PREG TEST DATE (test code = 3576) [facility]LAB ONLY COVID [id number] 00:02:26COVID DMT InterpretationInterpretation/Recommendations:Molecular NAAT Tests for Active Infection with the SARS-CoV-2 Virus:The patient has currently tested negative for the SARS-CoV-2 virus that causesCOVID-19 illness. This most likely indicates that the patient does not have an active infection withthe SARS-CoV-2 virus at this time. However, infection is not completely ruled out as the false negative rate for molecular NAAT testing using a nasopharyngeal sample can be up to 30%, mostly dependent on the timing of sample collection in relation to illness onset and any deficiencies in sampling techniques. If the patient has symptoms concerning for COVID-19 illness, a repeat NAAT test (PCR, Rapid ID Now, etc.) should be performed, at which time the SARS-CoV-2 virus - if present - may have reached a detectable viral load (usually peaking by the end of the first week of symptoms). Tests for IgM and/or IgG Antibodies to the SARS-CoV-2 Virus:Testing for IgM and IgG antibodies approximately 3 weeks after illness onset will likely indicate whether the patient has produced antibodies to the JBFT-ToH-4djpvo. However, some patients may take longer to develop detectable antibodies, while some patients who were infected with SARS-CoV-2 may never develop antibodies. While antibodies to SARS-CoV-2 may provide some degree of immunity, at this time the strength and duration of the antibody response is unknown. Interpretation ResultComments:These interpretation comments are based upon all COVID-19 testing the patient has had at [facility], including molecular NAAT testing (more commonly known as PCR testing and Rapid ID Now testing) and antibody testing. It does not take into account any testing that a patient has had outside of the [facility] medical record. [facility] LABORATORY SERVICESCOVID DbibtgbTBDI-AhN-5 NAAT (no units) ? ? Date ? Value ? 08/14/2020 ? Positive (A) ? SARS-CoV-2 Rapid ID NOW (no units) ? ? Date ? Value ? 11/27/2020 ? Not Detected ? ? ? 10/20/2020 ? Not Detected ? [facility] LABORATORY SERVICESUnLaredo Medical CenterAD OR TABBY ONLY - RPR 2020-11-28 06:42:53 Test Item Value Reference Range Interpretation Comments RPR (Qualitative) (test code = Nonreactive Nonreactive 93389-2) Lab Interpretation (test code = Normal 81105-0) [facility] CampusRHO (D) IMMUNE [id number] 04:34:09 Test Item Value Reference Range Interpretation Comments RHIG No- see comment mom is Rh CANDIDATE? positivePerform ed at [facility] (test code = Laboratory Serv ices - ADC 5055) Blood [address] [place], [place] [id number] 2Toll Free: [phone] 266CLIA No. [id number] [facility] CampusVenous Cord [id number] 21:22:29 Test Item Value Reference Range Interpretation Comments VENOUS BASE EXCESS, mEq/L CORD (test code = 1331919502) VENOUS PH, CORD (test 7.25-7.45 code = 6302698632) VENOUS PC02, CORD See_Comment [Automate d message] The (test code = system which ge nerated 5502768763) this result tra nsmitted reference range : 27 - 49 mmHg. The refer ence range was not used to interpret this result as normal/abnormal . VENOUS PO2, CORD (test See_Comment [Aut omated message] The code = 0291091480) system wh ich generated this result tra nsmitted reference range : 17 - 41 mmHg. The refer ence range was not used to interpret this result as normal/abnormal . VENOUS BICARBONATE, See_Comment [Automa dany message] The CORD (test code = system whi ch generated 3205693540) this result tra nsmitted reference range : 12 - 29 mEq/L. The refe rence range was not used to interpret this result as normal/abnormal . [facility] CampusArterial Cord [id number] 21:20:02 Test Item Value Reference Range Interpretation Comments BASE EXCESS, CORD mEq/L (test code = 1635289014) AC PH, CORD (BEAKER) 7.18-7.38 (test code = 8589686800) PC02, CORD (test code See_Comment [Auto mated message] The = 5398474813) system which g enerated this result transmit dany reference range : 32 - 66 mmHg. The refer ence range was not used to interpret this result as normal/abnormal . PO2, CORD (test code See_Comment [Autom ated message] The = 9995110482) system which g enerated this result transmit dany reference range : 10 - 30 mmHg. The refer ence range was not used to interpret this result as normal/abnormal . BICARBONATE, CORD See_Comment [Automate d message] The (test code = system which ge nerated this 2964937582) result transmit dany reference range : 17 - 27 mEq/L. The refe rence range was not used to interpret this result as normal/abnormal . [facility] CampusCentral Neuraxial [id number] 17:32:35 Fernie Ramirez MD ? ? 11/27/2020 ?1:58 PM Central Neuraxial Block Performed by: J Luis Lopez CRNAAuthorized by: Fernie Ramirez MD Patient Location: OBStart Time: 11/27/2020 12:09 PMReason for Block: OB request, Patient request and Labor analgesiaStaff: ?Anesthesiologist: Fernie Ramirez MD ?Resident/STATISTICAL FINANCIAL ANALYST: J Luis Lopez CRNA ?Performed by: resident/PEEPreanesthetic Checklist: patient identified, IV checked, risks and benefits explained, monitors and equipment checked, timeout performed, ob surgical consent/approval, pre-op evaluation, surgical consent, site marked and anesthesia consentProcedure: ?Type of Neuraxial: Continuous and Epidural ?Patient Position: sitting ?Prep: Betadine a nd patient draped ? ?Monitoring: heart rate, police booking officer / EKG, continuous pulse ox, heartrate / toco and NIBP ?Location: lumbar (1-5) ?Lumbar: L4-L5 ?Approach: midline ? ?Technique: DOUGLAS airand catheterEpidural/Spinal [place] and/or Catheter: ?Epidural/Spinal Kit: BBun ?Needle Type: Tuohy ?Needle Gauge: 17 G ?Needle Length: 3.5 in (8.89 cm) ?Needle Insertion Depth: 4.5 ?Catheter Type: side hole and multiport ? ?Catheter Size: 19 G ? ?Catheter at Skin Depth: 11 ?Number of Attempts: 1?Test Dose: lidocaine 1.5% with epinephrine 1-to-200,000 and negative ? ?Dose: 5 cc ? ?Catheter Securement Method: liquid medical adhesive, Tegaderm and surgical tapeAssessment: ?Sensory Level: below T10 ?Block Outcome: pain improved ? ?Procedure Assessment: patient tolerated procedure well with no complicationsNotes: ? epidural placed without incident. Negative test dose. Pt tolerated procedure well. No complications noted.PEE LopezUnLaredo Medical CenterCentral Neuraxial [id number] 17:32:35 Fernie Ramirez MD ? ? 11/27/2020 ?1:58 PM Central Neuraxial Block Performed by: J Luis Lopez CRNAAuthorized by: Fernie Ramirez MD Patient Location: OBStart Time: 11/27/2020 12:09 PMReason for Block: OB request, Patient request and Labor analgesiaStaff: ?Anesthesiologist: Fernie Ramirez MD ?Resident/STATISTICAL FINANCIAL ANALYST: J Luis Lopez CRNA ?Performed by: resident/PEEPreanesthetic Checklist: patient identified, IV checked, risks and benefits explained, monitors and equipment checked, timeout performed, ob surgical consent/approval, pre-op evaluation, surgical consent, site marked and anesthesia consentProcedure: ?Type of Neuraxial: Continuous and Epidural ?Patient Position: sitting ?Prep: Betadine a nd patient draped ? ?Monitoring: heart rate, police booking officer / EKG, continuous pulse ox, heartrate / toco and NIBP ?Location: lumbar (1-5) ?Lumbar: L4-L5 ?Approach: midline ? ?Technique: DOUGLAS airand catheterEpidural/Spinal [place] and/or Catheter: ?Epidural/Spinal Kit: BBraun ?Needle Type: Tuohy ?Needle Gauge: 17 G ?Needle Length: 3.5 in (8.89 cm) ?Needle Insertion Depth: 4.5 ?Catheter Type: side hole and multiport ? ?Catheter Size: 19 G ? ?Catheter at Skin Depth: 11 ?Number of Attempts: 1?Test Dose: lidocaine 1.5% with epinephrine 1-to-200,000 and negative ? ?Dose: 5 cc ? ?Catheter Securement Method: liquid medical adhesive, Tegaderm and surgical tapeAssessment: ?Sensory Level: below T10 ?Block Outcome: pain improved ? ?Procedure Assessment: patient tolerated procedure well with no complicationsNotes: ? epidural placed without incident. Negative test dose. Pt tolerated procedure well. No complications noted.PEE LopezUnLaredo Medical CenterHepatitis B Surface [id number] 16:41:56 Test Item Value Reference Range Interpretation Comments HBsAg Semi-Quantitative (test code = Negative Negative 5195-3) [facility] CampusHIV 1/2 AG-AB WITH [id number] 12:26:19 Test Item Value Reference Range Interpretation Comments HIV Negative Negative Semi-quantitative (test code = 97168-7) DARRYL (test code = Non-reactive for HIV-1 DARRYL) antigen and HIV-1/HIV-2 antibodies. ?No laboratory evidence of HIV infection. ?Repeat in 2-4 weeks if acute HIV infection is suspected. [facility] CampusType and Screen - ONCE [id number] 10:50:53 Test Item Value Reference Range Interpretation Comments ABO & RH (test code A Positive Performe d at [facility] = 20) Laboratory [facility] Blood Bank1 [address] [place], [place] [address]Toll Free: [phone] A No. [id number] IAT (test code = Negative Performed a t [facility] 1185) Laboratory [facility] Blood [facility]1 [address] [place], [place] [id number] Free: [phone] A No. [id number] [facility] CampusCOVID-19 (ID NOW RAPID TESTING)2020-11-27 10:18:32 Test Item Value Reference Range Interpretation Comments SARS-CoV-2 Rapid ID NOW Not Detected Not Detected (test code = 46908-5) DARRYL (test code = DARRYL) ID NOW COVID-19 Assay is an isothermal nucleic acid amplification test intended for the qualitative detection of nucleic acid from SARS-CoV-2 viral RNA in nasopharyngeal (HISTOPATHOLOGY TECHNICIAN) specimens. It is used under Emergency Use Authorization (EUA) by FDA. The limit of detection (LOD) of the assay is 125 Genome Equivalents/mL. A positive result is indicative of the presence of SARS-CoV-2 RNA. ?Clinical correlation with patient history and other diagnostic information is necessary to determine patient infection status. A negative (Not Detected) result does not preclude SARS-CoV-2 infection. In patients with clinical symptoms and other tests that are consistent with SARS-CoV-2 infection, negative results should be treated as presumptive negative and a new specimen should be tested with alternative PCR molecular test. Invalid: Please collect a new specimen for repeat patient testing if clinically indicated. Lab Interpretation Normal (test code = 25473-7) [facility] with [id number] 10:03:49 Test Item Value Reference Range Interpretation Comments WBC (test code = See_Comment [Automated message] 0490-2) The system [employer] generated this result transmitted ref erence range: 4.30 - 1 1.10 10*3/?L. The re ference range was not u sed to interpret this result as normal/abnor mal. RBC (test code = See_Comment [Automated message] 259-8) The system [employer] generated this result transmitted ref erence range: 3.93 - 5 .25 10*6/?L. The re ference range was not u sed to interpret this result as normal/abnor mal. HGB (test code = 12.2 g/dL 11.6-15.0 718-7) HCT (test code = 35.8 % 35.7-45.2 4544-3) MCV (test code = 87.3 fL 80.6-95.5 787-2) MCH (test code = 29.8 pg 25.9-32.8 785-6) MCHC (test code = 34.1 g/dL 31.6-35.1 786-4) RDW-SD (test code 40.1 fL 39.0-49.9 = 22103-0) RDW-CV (test code 12.7 % 12.0-15.5 = 788-0) PLT (test code = See_Comment [Automated message] 777-3) The system whic h generated this result transmitted ref erence range: 166 - 35 8 10*3/?L. The re ference range was not u sed to interpret this result as normal/abnor mal. MPV (test code = 11.0 fL 9.5-12.9 61658-7) NRBC/100 WBC (test See_Comment [Automat ed message] code = 8404743231) The syste m which generated this result transmitted ref erence range: 0.0 - 10 .0 /100 WBCs. The refer ence range was not u sed to interpret this result as normal/abnor mal. NRBC x10^3 (test <0.01 See_Comment [Automated message] code = 1501348337) The syste m which generated this result transmitted ref erence range: 10*3/?L. The reference range was not used to interpr et this result as normal/abnormal . GRAN MAT (NEUT) % 56.5 % (test code = 770-8) IMM GRAN % (test 0.40 % code = 4193454220) LYMPH % (test code 34.0 % = 736-9) MONO % (test code 8.2 % = 5905-5) EOS % (test code = 0.5 % 713-8) BASO % (test code 0.4 % = 706-2) GRAN MAT 3.22 10*3/uL 1.88-7.09 x10^3(ANC) (test code = 3207800139) IMM GRAN x10^3 <0.03 0.00-0.06 (test code = 9072411826) LYMPH x10^3 (test 1.94 10*3/uL 1.32-3.29 code = 731-0) MONO x10^3 (test 0.47 10*3/uL 0.33-0.92 code = 742-7) EOS x10^3 (test 0.03 10*3/uL 0.03-0.39 code = 711-2) BASO x10^3 (test <0.03 0.01-0.07 code = 704-7) [facility] URINALYSIS W/O SPECIFIC [id number] 21:02:00 Test Item Value Reference Range Interpretation Comments POCT PH U (test code = 3254) n/a 5-8 POCT U LEUK EST (test code = 3263) n/a Negative - Negative POCT U NIT (test code = 3262) n/a Negative - Negative POCT U PROT (test code = 3259) neg Negative - Negative POCT U GLU (test code = 3256) neg Negative - Negative POCT U KETONE (test code = 3258) n/a Negative - Negative POCT U BLD (test code = 3257) n/a Negative - Negative Lab Interpretation (test code = Normal 13377-8) [facility] URINALYSIS W/O SPECIFIC [id number] 21:02:00 Test Item Value Reference Range Interpretation Comments POCT PH U (test code = 3254) n/a 5-8 POCT U LEUK EST (test code = 3263) n/a Negative - Negative POCT U NIT (test code = 3262) n/a Negative - Negative POCT U PROT (test code = 3259) neg Negative - Negative POCT U GLU (test code = 3256) neg Negative - Negative POCT U KETONE (test code = 3258) n/a Negative - Negative POCT U BLD (test code = 3257) n/a Negative - Negative Lab Interpretation (test code = Normal 02578-6) [facility] URINALYSIS W/O SPECIFIC [id number] 21:36:00 Test Item Value Reference Range Interpretation Comments POCT PH U (test code = 3254) n/a 5-8 POCT U LEUK EST (test code = 3263) n/a Negative - Negative POCT U NIT (test code = 3262) n/a Negative - Negative POCT U PROT (test code = 3259) neg Negative - Negative POCT U GLU (test code = 3256) neg Negative - Negative POCT U KETONE (test code = 3258) n/a Negative - Negative POCT U BLD (test code = 3257) n/a Negative - Negative Lab Interpretation (test code = Normal 63399-0) [facility] CampusPOCT URINALYSIS W/O SPECIFIC [id number] 21:38:00 Test Item Value Reference Range Interpretation Comments POCT PH U (test code = 3254) n/a 5-8 POCT U LEUK EST (test code = 3263) n/a Negative - Negative POCT U NIT (test code = 3262) n/a Negative - Negative POCT U PROT (test code = 3259) neg Negative - Negative POCT U GLU (test code = 3256) neg Negative - Negative POCT U KETONE (test code = 3258) n/a Negative - Negative POCT U BLD (test code = 3257) n/a Negative - Negative Lab Interpretation (test code = Normal 47884-7) [facility] CampusHIV 1/2 AG-AB WITH [id number] 16:32:05 Test Item Value Reference Range Interpretation Comments HIV Negative Negative Semi-quantitative (test code = 63893-1) DARRYL (test code = Non-reactive for HIV-1 DARRYL) antigen and HIV-1/HIV-2 antibodies. ?No laboratory evidence of HIV infection. ?Repeat in 2-4 weeks if acute HIV infection is suspected. [facility] CampusGLUCOSE 1 HOUR POST [id number] 15:50:16 Test Item Value Reference Range Interpretation Comments GLUC 1 HR (test code = 1801149504) 135 mg/dL 120-170 Lab Interpretation (test code = Normal 96149-7) [facility] CampusCBC WITH [id number] 15:00:50 Test Item Value Reference Range Interpretation Comments WBC (test code = See_Comment [Automated message] 6690-2) The system [employer]Want[employer] generated this result transmitted ref erence range: 4.30 - 1 1.10 10*3/?L. The re ference range was not u sed to interpret this result as normal/abnor mal. RBC (test code = See_Comment [Automated message] 789-8) The system [employer] generated this result transmitted ref erence range: 3.93 - 5 .25 10*6/?L. The re ference range was not u sed to interpret this result as normal/abnor mal. HGB (test code = 12.6 g/dL 11.6-15.0 718-7) HCT (test code = 37.5 % 35.7-45.2 4544-3) MCV (test code = 88.2 fL 80.6-95.5 787-2) MCH (test code = 29.6 pg 25.9-32.8 785-6) MCHC (test code = 33.6 g/dL 31.6-35.1 786-4) RDW-SD (test code 42.0 fL 39.0-49.9 = 90173-9) RDW-CV (test code 13.1 % 12.0-15.5 = 788-0) PLT (test code = See_Comment [Automated message] 777-3) The system B[employer]ible[employer] h generated this result transmitted ref erence range: 166 - 35 8 10*3/?L. The re ference range was not u sed to interpret this result as normal/abnor mal. MPV (test code = 10.2 fL 9.5-12.9 37831-8) NRBC/100 WBC (test See_Comment [Automat ed message] code = 4747230606) The syste m which generated this result transmitted ref erence range: 0.0 - 10 .0 /100 WBCs. The refer ence range was not u sed to interpret this result as normal/abnor mal. NRBC x10^3 (test <0.01 See_Comment [Automated message] code = 7348766212) The syste m which generated this result transmitted ref erence range: 10*3/?L. The reference range was not used to interpr et this result as normal/abnormal . GRAN MAT (NEUT) % 68.1 % (test code = 770-8) IMM GRAN % (test 0.40 % code = 4744495543) LYMPH % (test code 25.1 % = 736-9) MONO % (test code 5.5 % = 5905-5) EOS % (test code = 0.6 % 713-8) BASO % (test code 0.3 % = 706-2) GRAN MAT 4.57 10*3/uL 1.88-7.09 x10^3(ANC) (test code = 1707980303) IMM GRAN x10^3 0.03 10*3/uL 0.00-0.06 (test code = 3588636624) LYMPH x10^3 (test 1.69 10*3/uL 1.32-3.29 code = 731-0) MONO x10^3 (test 0.37 10*3/uL 0.33-0.92 code = 742-7) EOS x10^3 (test 0.04 10*3/uL 0.03-0.39 code = 711-2) BASO x10^3 (test <0.03 0.01-0.07 code = 704-7) [facility]>14 WEEKS US [id number] 21:15:55Limited USG for presentation: ?Cephalic Jennifer Moon MD ?10/29/2020 ?4:15 PMUnLaredo [facility] CenterPOCT URINALYSIS W/O SPECIFIC GRAVITY 2020-10-29 20:34:00 Test Item Value Reference Range Interpretation Comments POCT PH U (test code = 3254) n/a 5-8 POCT U LEUK EST (test code = 3263) n/a Negative - Negative POCT U NIT (test code = 3262) n/a Negative - Negative POCT U PROT (test code = 3259) neg Negative - Negative POCT U GLU (test code = 3256) neg Negative - Negative POCT U KETONE (test code = 3258) n/a Negative - Negative POCT U BLD (test code = 3257) n/a Negative - Negative Lab Interpretation (test code = Normal 26296-8) [facility] CampusBASIC METABOLIC PANEL (NA, K, CL, CO2, GLUCOSE, BUN, CREATININE, CA)2020-10-21 02:20:45 Test Item Value Reference Range Interpretation Comments NA (test code = 135 mmol/L 135-145 8478508965) K (test code = 3.7 mmol/L 3.5-5.0 6396937357) CL (test code = 105 mmol/L 98-108 3617046413) CO2 TOTAL (test code = 24 mmol/L 23-31 7416944261) AGAP (test code = 2-16 7727759838) BUN (test code = 8 mg/dL 7-23 1476298560) GLUCOSE (test code = 79 mg/dL 70-110 2996714866) CREATININE (test code = 0.43 mg/dL 0.50-1.04 L 9448118032) CALCIUM (test code = 9.0 mg/dL 8.6-10.6 5326100699) eGFR (test code = mL/min/1.73m2 2252335454) DARRYL (test code = DARRYL) Association of Glomerular Filtration Rate (GFR) and Staging of Kidney Disease* + --+ --+ ------+| GFR (mL/min/1.73 m2) ?| With Kidney Damage ?| ?Without Kidney Damage+ --------+ --------+ +| ?>90 ?| ?Stage one ?| ? Normal ?+ ---+ ---+ -------+| ?60-89 ?| ?Stage two ?| ? Decreased GFR ? + --+ --+ ------+| ?30-59 ?| ?Stage three ?| ? Stage three ? + --+ --+ ------+| ?15-29 ?| ?Stage four ? | ? Stage four ?+ ---+ ---+ -------+| ?<15 (or dialysis) ? ?| ?Stage five ? | ? Stage five ?+ ---+ ---+ -------+ *Each stage assumes the associated GFR level has been in effect for at least three months. ?Stages 1 to 5, with or without kidney disease, indicate chronic kidney disease. Notes: Determination of stages one and two (with eGFR >59mL/min/1.73 m2) requires estimation of kidney damage for at least three months as defined by structural or functional abnormalities of the kidney, manifested by either:Pathological abnormalities or Markers of kidney damage (including abnormalities in the composition of the blood or urine or abnormalities in imaging tests). Lab Interpretation Abnormal (test code = 64596-6) [facility] WITH [id number] 01:45:21 Test Item Value Reference Range Interpretation Comments WBC (test code = See_Comment [Automated 3080-2) message] The sy stem which generated this result transmitted reference range : 4.30 - 11.10 10*3/?L. The reference range was not used to interpret this result as normal/abnormal . RBC (test code = See_Comment [Automated 789-8) message] The sy stem which generated this result transmitted reference range : 3.93 - 5.25 10*6/?L. The reference range was not used to interpret this result as normal/abnormal . HGB (test code = 11.9 g/dL 11.6-15.0 718-7) HCT (test code = 34.7 % 35.7-45.2 L 4544-3) MCV (test code = 87.4 fL 80.6-95.5 787-2) MCH (test code = 30.0 pg 25.9-32.8 785-6) MCHC (test code = 34.3 g/dL 31.6-35.1 786-4) RDW-SD (test code = 41.4 fL 39.0-49.9 91265-3) RDW-CV (test code = 13.1 % 12.0-15.5 788-0) PLT (test code = See_Comment [Automated 777-3) message] The sy stem which generated this result transmitted reference range : 166 - 358 10*3/ ?L. The reference r yony was not used to interpret this result as normal/abnormal . MPV (test code = 10.3 fL 9.5-12.9 07691-5) NRBC/100 WBC (test See_Comment [Automat ed code = 0611526818) message] The system which generated this result transmitted reference range : 0.0 - 10.0 /100 WBCs. The refer ence range was not u sed to interpret th is result as normal/abnormal . NRBC x10^3 (test code <0.01 See_Comment [Auto mated = 8605149808) message] The s ystem which generated this result transmitted reference range : 10*3/?L. The reference range was not used to interpret this result as normal/abnormal . GRAN MAT (NEUT) % 61.0 % (test code = 770-8) IMM GRAN % (test code 0.40 % = [id number]) LYMPH % (test code = 29.4 % 736-9) MONO % (test code = 7.9 % 5905-5) EOS % (test code = 0.9 % 713-8) BASO % (test code = 0.4 % 706-2) GRAN MAT x10^3(ANC) 4.18 10*3/uL 1.88-7.09 (test code = 7892943372) IMM GRAN x10^3 (test 0.03 10*3/uL 0.00-0.06 code = 8481782209) LYMPH x10^3 (test code 2.02 10*3/uL 1.32-3.29 = 731-0) MONO x10^3 (test code 0.54 10*3/uL 0.33-0.92 = 742-7) EOS x10^3 (test code = 0.06 10*3/uL 0.03-0.39 711-2) BASO x10^3 (test code 0.03 10*3/uL 0.01-0.07 = 704-7) Lab Interpretation Abnormal (test code = 67247-4) [facility] NOW RAPID TESTING)2020-10-21 01:10:14 Test Item Value Reference Range Interpretation Comments SARS-CoV-2 Rapid ID NOW Not Detected Not Detected (test code = 33105-6) DARRYL (test code = DARRYL) ID NOW COVID-19 Assay is an isothermal nucleic acid amplification test intended for the qualitative detection of nucleic acid from SARS-CoV-2 viral RNA in nasopharyngeal (HISTOPATHOLOGY TECHNICIAN) specimens. It is used under Emergency Use Authorization (EUA) by FDA. The limit of detection (LOD) of the assay is 125 Genome Equivalents/mL. A positive result is indicative of the presence of SARS-CoV-2 RNA. ?Clinical correlation with patient history and other diagnostic information is necessary to determine patient infection status. A negative (Not Detected) result does not preclude SARS-CoV-2 infection. In patients with clinical symptoms and other tests that are consistent with SARS-CoV-2 infection, negative results should be treated as presumptive negative and a new specimen should be tested with alternative PCR molecular test. Invalid: Please collect a new specimen for repeat patient testing if clinically indicated. Lab Interpretation Normal (test code = 45917-8) [facility]2020-10-21 00:54:27 Test Item Value Reference Range Interpretation Comments POCT GLU (test code = 9442460348) 124 mg/dL 70-110 H Lab Interpretation (test code = Abnormal 27386-0) [facility] URINALYSIS W/O SPECIFIC [id number] 18:26:00 Test Item Value Reference Range Interpretation Comments POCT PH U (test code = 3254) n/a 5-8 POCT U LEUK EST (test code = 3263) n/a Negative - Negative POCT U NIT (test code = 3262) n/a Negative - Negative POCT U PROT (test code = 3259) neg Negative - Negative POCT U GLU (test code = 3256) neg Negative - Negative POCT U KETONE (test code = 3258) n/a Negative - Negative POCT U BLD (test code = 3257) n/a Negative - Negative [facility] URINALYSIS W/O SPECIFIC [id number] 15:56:00 Test Item Value Reference Range Interpretation Comments POCT PH U (test code = 3254) N/A 5-8 POCT U LEUK EST (test code = N/A Negative - Negative 3263) POCT U NIT (test code = 3262) N/A Negative - Negative POCT U PROT (test code = 3259) Negative Negative - Negative POCT U GLU (test code = 3256) Negative Negative - Negative POCT U KETONE (test code = 3258) N/A Negative - Negative POCT U BLD (test code = 3257) N/A Negative - Negative [facility] URINALYSIS W/O SPECIFIC [id number] 16:56:00 Test Item Value Reference Range Interpretation Comments POCT PH U (test code = 3254) n/a 5-8 POCT U LEUK EST (test code = 3263) n.a Negative - Negative POCT U NIT (test code = 3262) n.a Negative - Negative POCT U PROT (test code = 3259) neg Negative - Negative POCT U GLU (test code = 3256) neg Negative - Negative POCT U KETONE (test code = 3258) n.a Negative - Negative POCT U BLD (test code = 3257) n.a Negative - Negative [facility] URINALYSIS W/O SPECIFIC [id number] 17:28:00 Test Item Value Reference Range Interpretation Comments POCT PH U (test code = 3254) n/a 5-8 POCT U LEUK EST (test code = 3263) n/a Negative - Negative POCT U NIT (test code = 3262) n/a Negative - Negative POCT U PROT (test code = 3259) neg Negative - Negative POCT U GLU (test code = 3256) neg Negative - Negative POCT U KETONE (test code = 3258) n/a Negative - Negative POCT U BLD (test code = 3257) n/a Negative - Negative [facility] SPECIFIC [id number] 20:13:00 Test Item Value Reference Range Interpretation Comments POCT PH U (test code = 3254) n/a 5-8 POCT U LEUK EST (test code = 3263) n/a Negative - Negative POCT U NIT (test code = 3262) n/a Negative - Negative POCT U PROT (test code = 3259) neg Negative - Negative POCT U GLU (test code = 3256) neg Negative - Negative POCT U KETONE (test code = 3258) n/a Negative - Negative POCT U BLD (test code = 3257) n/a Negative - Negative [facility] CampusCB WITH [id number] 14:40:00 Test Item Value Reference Range Interpretation Comments WBC (test code = See_Comment [Automated 1290-2) message] The sy stem which generated this result transmitted reference range : 4.30 - 11.10 10*3/?L. The reference range was not used to interpret this result as normal/abnormal . RBC (test code = See_Comment [Automated 359-8) message] The sy stem which generated this result transmitted reference range : 3.93 - 5.25 10*6/?L. The reference range was not used to interpret this result as normal/abnormal . HGB (test code = 12.8 g/dL 11.6-15 718-7) HCT (test code = 36.9 % 35.7-45.2 4544-3) MCV (test code = 87.0 fL 80.6-95.5 787-2) MCH (test code = 30.2 pg 25.9-32.8 785-6) MCHC (test code = 34.7 g/dL 31.6-35.1 786-4) RDW-SD (test code = 39.1 fL 39-49.9 38128-3) RDW-CV (test code = 12.4 % 12-15.5 788-0) PLT (test code = See_Comment [Automated 777-3) message] The sy stem which generated this result transmitted reference range : 166 - 358 10*3/ ?L. The reference r yony was not used to interpret this result as normal/abnormal . MPV (test code = 9.9 fL 9.5-12.9 56906-3) NRBC/100 WBC (test See_Comment [Automat ed code = 6491150827) message] The system which generated this result transmitted reference range : 0.0 - 10.0 /100 WBCs. The refer ence range was not u sed to interpret th is result as normal/abnormal . NRBC x10^3 (test code <0.01 See_Comment [Auto mated = 5618677265) message] The s ystem which generated this result transmitted reference range : 10*3/?L. The reference range was not used to interpret this result as normal/abnormal . GRAN MAT (NEUT) % 56.2 % (test code = 770-8) IMM GRAN % (test code 0.20 % = 0679440152) LYMPH % (test code = 37.7 % 736-9) MONO % (test code = 4.9 % 5905-5) EOS % (test code = 0.6 % 713-8) BASO % (test code = 0.4 % 706-2) GRAN MAT x10^3(ANC) 2.65 10*3/uL 1.88-7.09 (test code = 6563092017) IMM GRAN x10^3 (test <0.03 0-0.06 code = 5914532131) LYMPH x10^3 (test code 1.78 10*3/uL 1.32-3.29 = 731-0) MONO x10^3 (test code 0.23 10*3/uL 0.33-0.92 L = 742-7) EOS x10^3 (test code = 0.03 10*3/uL 0.03-0.39 711-2) BASO x10^3 (test code <0.03 0.01-0.07 = 704-7) Lab Interpretation Abnormal (test code = 82424-7) [facility] W/O SPECIFIC [id number] 19:13:00 Test Item Value Reference Range Interpretation Comments POCT PH U (test code = 3254) 7 mg/dl 5-8 POCT U LEUK EST (test code = neg Negative - Negative 3263) POCT U NIT (test code = 3262) neg Negative - Negative POCT U PROT (test code = 3259) neg Negative - Negative POCT U GLU (test code = 3256) neg Negative - Negative POCT U KETONE (test code = 3258) neg Negative - Negative POCT U BLD (test code = 3257) neg Negative - Negative Lab Interpretation (test code = Normal 77358-4) [facility] CampusGC & CHLAMYDIA AMPLIFIED [id number] 17:21:00 Test Item Value Reference Range Interpretation Comments C. trachomatis Nucleic Negative Negative Acid (test code = 38472-0) N. gonorrhoeae Nucleic Negative Negative Acid (test code = 10741-6) DARRYL (test code = DARRYL) Reliable results are dependent on adequate specimen collection. ? A positive result obtained from a patient after therapeutic treatment cannot be interpreted as indicating the presence of viable organisms. ?For patients on whom a false positive result may have adverse psychosocial impact, retesting is advised. Indeterminate: Unable to generate a valid test result on this specimen. ?Please submit a new specimen for repeat testing if clinically indicated. Chlamydia trachomatis/Neisseria gonorrhoeae nucleic acid amplification testing (NAAT) has not been validated for medico-legal specimens (sexual abuse in sol-pubertal and pre-pubertal children, sexual assault, and legal cases). ?Culture for Chlamydia trachomatis and/or Neisseria gonorrhoeae from clinically appropriate sites is the method of choice in these cases. ? Results from this testing should be interpreted in conjunction with other laboratory and clinical data available to the clinician.For females in general, a urine specimen is a second-line option because it is considered less sensitive than a cervical swab for Chlamydia trachomatis and/or Neisseria gonorrhoeae NAAT. Lab Interpretation Normal (test code = 70616-8) [facility] CampusADC / LC - DRUG SCREEN [id number] 01:02:00 Test Item Value Reference Range Interpretation Comments BENZO U (test code = Negative Negative 0282821878) LAVERNE U (test code = Negative Negative 7890771452) AMPHET (test code = Negative Negative 9980759298) THC (test code = Presumptive Negative A Confirmatio n of 4202074355) Positive Presumptive Positive THC result requires physician order . METHADONE (test code Negative Negative = 0511832321) Meth U (test code = Negative Negative 9559712733) OPIATES (test code = Negative Negative 7258428868) Cocaine Metabolite Negative Negative (test code = 5489106140) PROPOXY (test code = Negative Negative 4126056745) Tric U (test code = Negative Negative 9248489578) PCP (test code = Negative Negative 7631381815) OXYCOD (test code = Negative Negative 0155675889) DARRYL (test code = Urine Drug Cutoff DARRYL) Ranges Benzodiazepines: ? ? 150 ng/mLBarbiturates : ?200 ng/mLAmphetamine: ? 500 ng/mLCannabinoids : ?50 ?ng/mLMethadone: ? 200 ng/mLMethamphetam ine: ? ? 500 ng/mL Opiates: ? 100 ng/mL or 2000 ng/mLCocaine: ? 150 ng/mLPropoxyphene : ?300 ng/mLTricyclics: ?300 ng/mLOxycodone: ? 100 ng/mLPCP: ? 25 ?ng/mL The results are to be used only for medical (i.e., treatment) purposes. Unconfirmed screening results must not be used for non-medical purposes (e.g., employment testing, legal testing). Lab Interpretation Abnormal (test code = 11330-0) [facility] OB [id number] 15:30:08Limited USG for FHT: ?Single live IUP measured 6 0/7 weeks, consistent with LMP. ?Will date by LMP unless clinically indicated otherwise Jennifer Moon MD ?04/10/2020 ?10:30 [facility] [id number] 15:30:08 Limited USG for FHT: ?Single live IUP measured 6 0/7 weeks, consistent with LMP. ?Will date by LMP unless clinically indicated otherwise Jennifer Moon MD ?04/10/2020 ?10:[facility] 2020-[facility]-10 14:07:00 Test Item Value Reference Range Interpretation Comments POCT PREG (test code = 1605) Positive On board controls acceptable with C Yes Line (test code = 3574) POCT PREG LOT # (test code = 3575) POCT PREG TEST DATE (test code = 357) Lab Interpretation (test code = Abnormal 90124-6) [facility] URINALYSIS W/O SPECIFIC [id number] 14:07:00 Test Item Value Reference Range Interpretation Comments POCT PH U (test code = 3254) 5 mg/dl 5-8 POCT U LEUK EST (test code = neg Negative - Negative 3263) POCT U NIT (test code = 3262) neg Negative - Negative POCT U PROT (test code = 3259) neg Negative - Negative POCT U GLU (test code = 3256) neg Negative - Negative POCT U KETONE (test code = 3258) neg Negative - Negative POCT U BLD (test code = 3257) neg Negative - Negative Lab Interpretation (test code = Normal 17669-3) [facility] [id number] 14:07:00 Test Item Value Reference Range Interpretation Comments POCT PREG (test code = 1605) Positive On board controls acceptable with C Yes Line (test code = 3574) POCT PREG LOT # (test code = 3575) POCT PREG TEST DATE (test code = 3576) Lab Interpretation (test code = Abnormal 34182-7) [facility] URINALYSIS W/O SPECIFIC [id number] 14:07:00 Test Item Value Reference Range Interpretation Comments POCT PH U (test code = 3254) 5 mg/dl 5-8 POCT U LEUK EST (test code = neg Negative - Negative 3263) POCT U NIT (test code = 3262) neg Negative - Negative POCT U PROT (test code = 3259) neg Negative - Negative POCT U GLU (test code = 3256) neg Negative - Negative POCT U KETONE (test code = 3258) neg Negative - Negative POCT U BLD (test code = 3257) neg Negative - Negative Lab Interpretation (test code = Normal 03133-7) [facility]PO[facility] [id number] 22:03:00 Test Item Value Reference Range Interpretation Comments POCT PREG (test code = 1605) Negative On board controls acceptable with C Yes Line (test code = 3574) POCT PREG LOT # (test code = 3575) POCT PREG TEST DATE (test code = 3576) Lab Interpretation (test code = Normal 65781-0) [facility]3 HR GLUCOSE TOLERANCE [id number] 17:38:00 Test Item Value Reference Range Interpretation Comments GLUC 3 HR (test code = 9824029552) 113 mg/dL 70-110 H Lab Interpretation (test code = Abnormal 58515-7) [facility]2 HR GLUCOSE TOLERANCE [id number] 17:09:00 Test Item Value Reference Range Interpretation Comments GLUC 2 HR (test code = 8905283439) 103 mg/dL 70-120 Lab Interpretation (test code = Normal 81369-7) [facility]1 HR GLUCOSE TOLERANCE [id number] 16:10:00 Test Item Value Reference Range Interpretation Comments GLUC 1 HR (test code = 4575341466) 151 mg/dL 120-170 Lab Interpretation (test code = Normal 86378-9) [facility] CampusGLUCOSE [id number] 15:13:00 Test Item Value Reference Range Interpretation Comments GLU FASTNG (test code = 0668575271) 68 mg/dL 70-110 L Lab Interpretation (test code = Abnormal 30423-2) [facility]"
== END 2021-04-29 22:47 | disposition home or self-care (01) ==
LOC: ER 19:36
DX: R19.7 Diarrhea, unspecified (principal); F41.8 Other specified anxiety disorders
CPT/HCPCS: 85025; 80048; 36415; 80076; 81003; 83690; 96374; 99284; Q0169; J7030; J2405